=== PATIENT | female | born 1965 | race Caucasian/White ===

== ENCOUNTER 2017-08-09 16:43 | Emergency (ER) | payer MEDICARE, OTHER ==
[2017-08-09] MEDS ORDERED: RX INFO: IV CONTRAST WAS GIVEN 1 EACH MISC MISCELLANE PRN (17:08)
[2017-08-09] MEDS ORDERED: HYDROcodone/APAP 5-325MG 1 EACH TAB PO STA (17:09)
--- NOTE | 2017-08-09 17:15 | ED ---
Neck Injury/Pain HPI - General Chief Complaint: Neck Pain/Injury Stated Complaint: Neck Swelling Time Seen by Provider: 08/09/17 17:01 Mode of arrival: wheelchair Limitations: no limitations - History of Present Illness Initial Comments: 52-year-old female patient presents to the emergency department today for complaints of neck pain and issues with the right ear. Patient states that she has been having issues with the right side of her neck on and off for the last one was. She states that she has been having pain in the right ear. She did see an research program internship who states that he doesn't believe her pain is related to the ear. Patient states that the neck is tender over the right posterior aspect. Patient is also complaining of swollen glands. She denies any fevers or chills with this. Denies any dizziness or weakness. 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 She states that she was having issues with hearing in the right side. States the research program internship out of there was some fluid on the ear. Patient denies any recent rash, shortness breath, chest pain, abdominal pain, nausea, vomiting, diarrhea, constipation, dizziness, weakness, hematuria, dysuria, urinary urgency, urinary frequency, headache, visual changes, or any other complaints. - Related Data Home Medications Medication Instructions Recorded Confirmed Gabapentin [Neurontin] 800 mg PO TID 08/03/15 08/09/17 Insulin Glargine [Lantus] 50 unit SQ HS 08/03/15 08/09/17 Liraglutide [Victoza 2-Rk] 1.2 mg SQ DAILY 11/23/15 08/09/17 Albuterol Inhaler [Ventolin Hfa 1 - 2 puff INHALATION RT-Q6H PRN 03/24/17 Inhaler] Albuterol Nebulized [Ventolin 2.5 mg INHALATION RT-Q6H PRN 03/24/17 08/09/17 Nebulized] Aspirin 81 mg PO DAILY 03/24/17 08/09/17 Citalopram Hydrobromide [CeleXA] 40 mg PO DAILY 03/24/17 08/09/17 Ipratropium/Albuterol Sulfate 1 puff INHALATION RT-QID 03/24/17 08/09/17 [Combivent Respimat Inhaler] Lisinopril [Zestril] 20 mg PO BID 03/24/17 08/09/17 Acetaminophen Tab [Tylenol Tab] 1,000 mg PO Q6HR PRN 08/09/17 08/09/17 HYDROcodone/APAP 5-325MG [[place] 1 tab PO Q6HR PRN 08/09/17 08/09/17 5-325] Insulin Lispro [humaLOG Kwikpen] 15 unit SQ AC-TID 08/09/17 08/09/17 metFORMIN HCL 1,000 mg PO BID 08/09/17 08/09/17 Previous Rx's Medication Instructions Recorded Atorvastatin [Lipitor] 80 mg PO HS #30 tab 04/01/17 Isosorbide Mononitrate ER [Imdur] 60 mg PO DAILY #30 tab.er.24h 04/01/17 Metoprolol Tartrate [Lopressor] 25 mg PO BID #60 tab 04/01/17 Nitroglycerin Sl Tabs [Nitrostat] 0.4 mg SUBLINGUAL Q5M PRN #25 tab 04/01/17 Hydrocodone/Acetaminophen [[place] 1 tab PO Q6HR PRN #12 tab 08/09/17 5-325] Allergies Allergy/AdvReac Type Severity Reaction Status Date / Time Melon Allergy Anaphylaxis Verified 08/09/17 17:52 morphine Allergy Rash/Hives Verified 08/09/17 17:52 Penicillins Allergy Dyspnea Verified 08/09/17 17:52 acetaminophen [From Tylenol] AdvReac Dyspnea Verified 08/09/17 17:52 alprazolam [From Xanax] AdvReac Unknown Verified 08/09/17 17:52 codeine AdvReac Dyspnea Verified 08/09/17 17:52 Review of Systems ROS Statement: Those systems with pertinent positive or pertinent negative responses have been documented in the HPI. ROS Other: All systems not noted in ROS Statement are negative. Past Medical History Past Medical History: Asthma, Coronary Artery Disease (CAD), Chest Pain / Angina , COPD, Diabetes Mellitus, Fibromyalgia, Hypertension, Myocardial Infarction ([place] ), Sleep Apnea/CPAP/BIPAP Additional Past Medical History / Comment(s): MS, neuropathy, arthritis in back , knees, ankles, feet. VERTIGO. fibromyalgia, sleep apnea with cpap use, abd aneurysm Last Myocardial Infarction Date:: 2004 History of Any Multi-Drug Resistant Organisms: None Reported Past Surgical History: Appendectomy, Cholecystectomy, Hysterectomy, Pacemaker, Tonsillectomy Additional Past Surgical History / Comment(s): Bladder SUSPENSION. LEFT carpal tunnel. Cyst removed from left middle finger Past Anesthesia/Blood Transfusion Reactions: Previous Problems w/ Anesthesia, Motion Sickness Additional Past Anesthesia/Blood Transfusion Reaction / Comment(s): HAS BEEN COMBATIVE POST GENERAL ANESTHESIA Past Psychological History: Depression Smoking Status: Current every day smoker Past Alcohol Use History: Occasional Past Drug Use History: Marijuana - Past Family History Mother Family Medical History: Diabetes Mellitus Additional Family Medical History / Comment(s): heart problems Father Family Medical History: Diabetes Mellitus Additional Family Medical History / Comment(s): heart problems General Exam Limitations: no limitations General appearance: alert, in no apparent distress, other (This is a well- developed, obese female patient in no acute distress. Vital signs upon presentation are temperature 98.1 degrees, pulse 54, respirations 20, blood pressure 158/97, pulse ox 98% on room air.) Eye exam: Present: normal appearance, PERRL, EOMI. Absent: scleral icterus, conjunctival injection, periorbital swelling ENT exam: Present: normal exam, normal oropharynx, mucous membranes moist Neck exam: Present: normal inspection, full ROM, lymphadenopathy (Mild bilateral anterior cervical lymphadenopathy), other (Right posterior cervical tenderness). Absent: tenderness, meningismus Respiratory exam: Present: normal lung sounds bilaterally. Absent: respiratory distress, wheezes, rales, rhonchi, stridor Cardiovascular Exam: Present: regular rate, normal rhythm, normal heart sounds. Absent: systolic murmur, diastolic murmur, rubs, gallop, clicks Neurological exam: Present: alert, oriented X3, CN II-XII intact Psychiatric exam: Present: normal affect, normal mood Skin exam: Present: warm, dry, intact, normal color. Absent: rash Course Vital Signs 08/09/17 08/09/17 08/09/17 16:52 18:41 19:12 Temperature 98.1 F 97.8 F Pulse Rate 54 L 92 52 L Respiratory 20 18 18 Rate Blood Pressure 158/97 188/97 191/94 O2 Sat by Pulse 98 99 96 Oximetry 08/09/17 20:08 Temperature 97.8 F Pulse Rate 52 L Respiratory 20 Rate Blood Pressure 199/103 O2 Sat by Pulse 96 Oximetry Medical Decision Making - Medical Decision Making 52-year-old female patient presents to the emergency department today for evaluation of right posterior neck pain. Physical exam reveals tenderness over the right posterior cervical lymph node region. Patient is also reporting tenderness over the submental mandibular area. No swelling or discoloration noted. Labs reviewed and were unremarkable. Patient did undergo CT of the soft tissues of the neck with contrast and CT of the mastoid air cells. CT of the soft tissue of the neck was normal. CT of the mastoids did redemonstrate temporal bone findings. Did discuss this with the patient and instructed her to follow up with her primary care physician for further evaluation and possible MRI. She was given a short course of pain medication for the neck pain. She does have an appointment with a traffic line painter she is encouraged to keep this point. She is instructed to return here immediately for any new, worsening, or concerning symptoms. She verbalizes understanding and agrees this plan. - Lab Data Result diagrams: 08/09/17 17:22 08/09/17 17:22 Lab Results 08/09/17 08/09/17 Range/Units 17:22 17:22 WBC 8.0 (3.8-10.6) k/uL RBC 4.75 (3.80-5.40) m/uL Hgb 13.8 (11.4-16.0) gm/dL Hct 40.7 (34.0-46.0) % MCV 85.8 (80.0-100.0) fL MCH 29.1 (25.0-35.0) pg MCHC 33.9 (31.0-37.0) g/dL RDW 13.8 (11.5-15.5) % Plt Count 309 (150-450) k/uL Neutrophils % 53 % Lymphocytes % 36 % Monocytes % 5 % Eosinophils % 3 % Basophils % 1 % Neutrophils # 4.3 (1.3-7.7) k/uL Lymphocytes # 2.9 (1.0-4.8) k/uL Monocytes # 0.4 (0-1.0) k/uL Eosinophils # 0.2 (0-0.7) k/uL Basophils # 0.1 (0-0.2) k/uL Sodium 142 (137-145) mmol/L Potassium 3.5 (3.5-5.1) mmol/L Chloride 103 (98-107) mmol/L Carbon Dioxide 31 H (22-30) mmol/L Anion Gap 8 mmol/L BUN 13 (7-17) mg/dL Creatinine 0.64 (0.52-1.04) mg/dL Est GFR (CKD-EPI)AfAm >90 (>60 ml/min/1.73 sqM) Est GFR (CKD-EPI)NonAf >90 (>60 ml/min/1.73 sqM) Glucose 132 H (74-99) mg/dL Calcium 9.1 (8.4-10.2) mg/dL Total Bilirubin 0.6 (0.2-1.3) mg/dL AST 27 (14-36) U/L ALT 35 (9-52) U/L Alkaline Phosphatase 104 (38-126) U/L Total Protein 6.8 (6.3-8.2) g/dL Albumin 3.9 (3.5-5.0) g/dL - Radiology Data Radiology results: report reviewed, image reviewed CT of the mastoids without contrast shows previous is seen right temporal bone changes involving the right mastoid sinus air cells, right middle ear cavity and right tegmen tympania redemonstrated, appearing relatively similar to the prior study of March 2017. An intracranial component is not visualized by CT criteria, but further characterization with dedicated temporal bone MRI without and with contrast is advised to examine for subtle intracranial dural involvement. The remainder the visualized structures are unremarkable for acute findings. Impression by Dr. Haider Montoya shows right-sided temporal bone findings. CT of the neck is performed with IV contrast. Findings show airway and lung apices: No gross abnormalities seen. Salivary glands are no gross abnormality. Carotid vascular structures show diffuse arterial atherosclerotic tortuosity with scattered intimal calcifications. Venous structures patent. Osseous structures show no spinal malalignment or fracture or other focal skeletal finding. Multilevel mild plus cervical spondylosis changes noted. Other shows no mass or adenopathy. Visual upper chest is unremarkable. Impression shows no acute process, by Dr. Haider Montoya. Disposition Clinical Impression: Neck pain Disposition: HOME SELF-CARE Condition: Good Instructions: Neck Pain (ED) Additional Instructions: Take medications as directed. Follow-up with her primary care physician for recheck in 1-2 days. Keep her appointment with her traffic line painter as you have planned. Return here immediately for any new, worsening, or concerning symptoms. Prescriptions: Hydrocodone/Acetaminophen [Barnhill 5-325] 1 tab PO Q6HR PRN #12 tab PRN Reason: Pain Referrals: Nonstaff,Physician [Primary Care Provider] - 1-2 days Time of Disposition: 20:11
[2017-08-09 17:35] LABS: Basophils # (A) 0.1 k/uL (0-0.2); Basophils % (A) 1 %; Eosinophils # (A) 0.2 k/uL (0-0.7); Eosinophils % (A) 3 %; HCT 40.7 % (34.0-46.0); HGB 13.8 gm/dL (11.4-16.0); Lymphocytes # (A) 2.9 k/uL (1.0-4.8); Lymphocytes % (A) 36 %; MCH 29.1 pg (25.0-35.0); MCHC 33.9 g/dL (31.0-37.0); MCV 85.8 fL (80.0-100.0); Mean Platelet Volume 6.8; Monocytes # (A) 0.4 k/uL (0-1.0); Monocytes % (A) 5 %; Neutrophils # (A) 4.3 k/uL (1.3-7.7); Neutrophils % (A) 53 %; Platelet Count 309 k/uL (150-450); RBC 4.75 m/uL (3.80-5.40); RDW 13.8 % (11.5-15.5)
[2017-08-09 17:47] LABS: ALT 35 U/L (9-52); AST 27 U/L (14-36); Albumin 3.9 g/dL (3.5-5.0); Alkaline Phosphatase 104 U/L (38-126); Anion Gap 8 mmol/L; Blood Urea Nitrogen 13 mg/dL (7-17); Calcium 9.1 mg/dL (8.4-10.2); Carbon Dioxide 31 mmol/L (22-30); Chloride 103 mmol/L (98-107); Glucose 132 mg/dL (74-99); Potassium 3.5 mmol/L (3.5-5.1); Sodium 142 mmol/L (137-145); Total Bilirubin 0.6 mg/dL (0.2-1.3); Total Protein 6.8 g/dL (6.3-8.2)
[2017-08-09 19:16] VITALS: PULSE 52
--- NOTE | 2017-08-09 19:40 | CT ---
EXAMINATION TYPE: CT mastoid wo con DATE OF EXAM: 08/09/2017 COMPARISON: 03/27/2017 HISTORY: Posterior neck pain and swelling without injury CT DLP: 150 mGycm. Automated Exposure Control for Dose Reduction was Utilized. TECHNIQUE: CT scan of internal auditory canal is performed without contrast, thin cut axial images ar e obtained, coronal reformatted images are also reviewed. FINDINGS: The previously seen right temporal bone changes involving the right mastoid sinus air cells , right middle ear cavity and right tegmen tympani are redemonstrated, appearing relatively similar t o the prior study of March 2017. An intracranial component is not visualized by CT criteria, but f urther characterization with dedicated temporal bone MRI without and with contrast is advised to exam ine for subtle intracranial / dural involvement. The remainder of the visualized structures are unrem arkable for acute findings. IMPRESSION: RIGHT-SIDED TEMPORAL BONE FINDINGS.
--- NOTE | 2017-08-09 19:46 | CT ---
EXAMINATION TYPE: CT soft tissue neck w con DATE OF EXAM: 08/09/2017 7:11 PM COMPARISON: NONE HISTORY: Posterior neck pain and swelling without injury CT DLP: 1030.9 mGycm Automated exposure control for dose reduction was used. CONTRAST: CT scan of the neck is performed following with IV Contrast, patient injected with 100 mL o f Omnipaque 300. Axial images are obtained, coronal and sagittal reformatted images are reviewed. FINDINGS: Airway and lung apices: No gross abnormality seen. Salivary glands: No gross abnormality seen. Carotid/Vascular Structures: There is diffuse arterial atherosclerotic tortuosity with scattered inti mal calcifications. Venous structures patent. Osseous Structures: No spinal malalignment or fracture or other focal skeletal finding. Multilevel mi ld-plus cervical spondylosis changes noted. Other: No mass or adenopathy. Visualized upper chest unremarkable. IMPRESSION: NO ACUTE PROCESS.
[2017-08-09] MEDS ORDERED: KETOROLAC 30 MG/ML 1 ML VIAL IVP STA (20:01)
[2017-08-09 21:01] VITALS: BP 151/95; RESP 18; TEMP 97.9
== END 2017-08-09 21:00 | disposition home or self-care (01) ==
LOC: EC 16:43
DX: M54.2 Cervicalgia (principal); R22.1 Localized swelling, mass and lump, neck; J44.9 Chronic obstructive pulmonary disease, unspecified; I25.10 Atherosclerotic heart disease of native coronary artery without angina pectoris; E11.40 Type 2 diabetes mellitus with diabetic neuropathy, unspecified; I10 Essential (primary) hypertension; I25.2 Old myocardial infarction; G47.30 Sleep apnea, unspecified; Z99.89 Dependence on other enabling machines and devices; F32.9 Major depressive disorder, single episode, unspecified; F17.200 Nicotine dependence, unspecified, uncomplicated; Z79.4 Long term (current) use of insulin; Z79.82 Long term (current) use of aspirin; Z79.899 Other long term (current) drug therapy; Z88.0 Allergy status to penicillin; Z88.5 Allergy status to narcotic agent; Z88.6 Allergy status to analgesic agent; Z88.8 Allergy status to other drugs, medicaments and biological substances; Z91.018 Allergy to other foods
CPT/HCPCS: 36415; 80053; 85025; 70486; 70491; 99284; 96374; J1885; Q9967

== ENCOUNTER → 2017-10-24 | Outpatient (CLI) | payer MEDICARE ==
[2017-10-24 16:11] LABS: Blood Urea Nitrogen 13 mg/dL (7-17)
--- NOTE | 2017-10-25 08:13 | CT ---
EXAMINATION TYPE: CT chest w con DATE OF EXAM: 10/24/2017 COMPARISON: CT chest [facility] 03/24/2017 HISTORY: Pulmonary nodule CT DLP: 1339.7 mGycm, Automated exposure control for dose reduction was used. CONTRAST: Performed injected with 100 mL of Isovue 300. TECHNIQUE: Axial images were obtained at 5 mm thick sections. Reconstructed images are reviewed on [employer] computer in the coronal plane. FINDINGS: Portion of the thyroid visualized is normal. There is a new 0.5 cm nodular density at the periphery of the left apex. Series 4 image 17 There is an irregular density within the anterior right midlung measuring 1.2 cm. Series 4 image 33. This may be more prominent than the comparison. There is a 1.1 cm lymph node in the pretracheal space. Some additional smaller lymph nodes are prese nt. This is slightly more prominent than comparison. The ascending aorta diameter at the level of the main pulmonary artery is 4.2 cm. The main pulmonary artery diameter at the bifurcation is 4.5 cm. Correlate for pulmonary hypertension. Some mild cardio megaly may be present. No pericardial effusion is evident. Limited CT sections are obtained through the upper abdomen. Left adrenal gland is enlarged measuring 5.8 x 4.2 cm. This appears essentially stable. IMPRESSIONS: 1. Couple of lung nodules slightly prominent for developing from comparison. Mediastinal adenopathy e nlarged but stable left adrenal gland. Consider PET CT for additional workup. Static disease is not e xcluded.
== END | disposition home or self-care (01) ==
LOC: RADCTMAIN 15:27
PROVIDERS: ATTEND Internal Medicine
DX: R91.8 Other nonspecific abnormal finding of lung field (principal); R59.0 Localized enlarged lymph nodes
CPT/HCPCS: 82565; 84520; 71260; 36415; Q9967

== ENCOUNTER 2022-10-31 15:56 | Inpatient (IN) | payer MEDICARE ==
[2022-10-31] MEDS ORDERED: SODIUM CHLORIDE 0.9% 500 ML 500 ML IV STA (16:02)
[2022-10-31] MEDS ORDERED: SODIUM CHLORIDE 0.9% 1,000 ML IV STA (16:02)
--- NOTE | 2022-10-31 16:04 | ED ---
Weakness HPI - General Stated complaint: Weakness Time Seen by Provider: 10/31/22 16:01 Source: RN notes reviewed, old records reviewed Limitations: no limitations - History of Present Illness Initial comments: 57-year-old female to the ER for evaluation today. Patient presents today for evaluation regards to transfer, transfer for having TIA type symptoms altered mental status. Patient is accepted in transfer. She also had multiple near syncopal events. Facial droop. All symptoms are resolved currently MD Complaint: generalized weakness, focal weakness, lack of energy -: hour(s) Location: generalized Severity: moderate Severity scale (1-10): 7 Quality: tingling Consistency: constant Improves with: none Worsens with: none Context: recent illness, history of similar Associated Symptoms: denies other symptoms - Related Data Home Medications Medication Instructions Recorded Confirmed Albuterol Inhaler [Ventolin Hfa 1 - 2 puff INHALATION RT-Q6H PRN 03/24/17 10/31/22 Inhaler] Baclofen [Lioresal] 10 mg PO BID PRN 10/31/22 10/31/22 DULoxetine HCL [Cymbalta] 30 mg PO DAILY 10/31/22 10/31/22 Dapagliflozin Propanediol [Farxiga] 5 mg PO DAILY 10/31/22 10/31/22 Dulaglutide [Trulicity] 1.5 mg SQ TH 10/31/22 10/31/22 Estradiol Cream [Estrace Cream 1 gm VAGINAL DIRECTED 10/31/22 10/31/22 0.01%] Furosemide [Lasix] 40 mg PO DAILY 10/31/22 10/31/22 busPIRone HCL [Buspar] 7.5 mg PO BID 10/31/22 10/31/22 lisinopriL 40 mg PO DAILY 10/31/22 10/31/22 Allergies Allergy/AdvReac Type Severity Reaction Status Date / Time acetaminophen [From Tylenol] Allergy Dyspnea Verified 10/31/22 17:26 codeine Allergy Dyspnea Verified 10/31/22 17:26 Melon Allergy Anaphylaxis Verified 08/09/17 17:52 morphine Allergy Rash/Hives Verified 08/09/17 17:52 Penicillins Allergy Dyspnea Verified 10/31/22 17:26 alprazolam [From Xanax] AdvReac See comment Verified 10/31/22 17:26 Review of Systems ROS Statement: Those systems with pertinent positive or pertinent negative responses have been documented in the HPI. ROS Other: All systems not noted in ROS Statement are negative. Past Medical History Past Medical History: Asthma, Coronary Artery Disease (CAD), Chest Pain / Angina, COPD, Diabetes Mellitus, Fibromyalgia, Hypertension, Myocardial Infarction ([place]), Sleep Apnea/CPAP/BIPAP Additional Past Medical History / Comment(s): MS, neuropathy, arthritis in back, knees, ankles, feet. VERTIGO. fibromyalgia, sleep apnea with cpap use, abd aneurysm Last Myocardial Infarction Date:: 2004 History of Any Multi-Drug Resistant Organisms: None Reported Past Surgical History: Appendectomy, Cholecystectomy, Hysterectomy, Pacemaker, Tonsillectomy Additional Past Surgical History / Comment(s): Bladder SUSPENSION. LEFT carpal tunnel. Cyst removed from left middle finger Past Anesthesia/Blood Transfusion Reactions: Previous Problems w/ Anesthesia, Motion Sickness Additional Past Anesthesia/Blood Transfusion Reaction / Comment(s): HAS BEEN COMBATIVE POST GENERAL ANESTHESIA Past Psychological History: Depression Past Alcohol Use History: Occasional Past Drug Use History: Marijuana - Past Family History Mother Family Medical History: Diabetes Mellitus Additional Family Medical History / Comment(s): heart problems Father Family Medical History: Diabetes Mellitus Additional Family Medical History / Comment(s): heart problems General Exam - General Exam Comments Initial Comments: No current focal neurological deficits General appearance: alert, in no apparent distress Head exam: Present: atraumatic, normocephalic, normal inspection Eye exam: Present: normal appearance, PERRL, EOMI. Absent: scleral icterus, conjunctival injection, periorbital swelling ENT exam: Present: normal exam, mucous membranes moist Neck exam: Present: normal inspection. Absent: tenderness, meningismus, lymphadenopathy Respiratory exam: Present: normal lung sounds bilaterally. Absent: respiratory distress, wheezes, rales, rhonchi, stridor Cardiovascular Exam: Present: regular rate, normal rhythm, normal heart sounds. Absent: systolic murmur, diastolic murmur, rubs, gallop, clicks GI/Abdominal exam: Present: soft, normal bowel sounds. Absent: distended, tenderness, guarding, rebound, rigid Extremities exam: Present: normal inspection, full ROM, normal capillary refill. Absent: tenderness, pedal edema, joint swelling, calf tenderness Back exam: Present: normal inspection Neurological exam: Present: alert, oriented X3, CN II-XII intact Psychiatric exam: Present: normal affect, normal mood Skin exam: Present: warm, dry, intact, normal color. Absent: rash Course Vital Signs 10/31/22 10/31/22 10/31/22 16:09 19:48 20:57 Temperature 98 F Pulse Rate 51 L 54 L 52 L Respiratory 18 18 18 Rate Blood Pressure 183/86 168/76 160/68 O2 Sat by Pulse 99 98 96 Oximetry - Reevaluation(s) Reevaluation #1: 10/31/22 23:31 Medical records reviewed. Reevaluation #2: 10/31/22 23:32 Patient has focalneurologicaldeficits Reevaluation #3: 10/31/22 23:33 Patient informed results questions answered Reevaluation #4: 10/31/22 23:33 Was pt. sent in by a medical professional or institution? @ -no Did you speak to anyone other than the patient for history? @ -no Did you review nursing and triage notes? @ -agree Were old charts reviewed? @ -no Differential Diagnosis? @ -prior EKG interpreted by me (3pts min.)? @ -yes X-rays interpreted by me (1pt min.)? @ -yes CT interpreted by me (1pt min.)? @ -no U/S interpreted by me (1pt. min.)? @ -no What testing was considered but not performed? (CT, X-rays, U/S, labs)? Why? @ -no What meds were considered but not given? Why? @ -no Did you discuss the management of the patient with other professionals? @ -no Did you reconcile home meds? @ -no Was smoking cessation discussed for >3mins.? @ -no Was critical care preformed (if so, how long)? @ -no Were there social determinants of health that impacted care today? How? (Homelessness, low income, unemployed, alcoholism, drug addiction, transportati on, low edu. Level, literacy, decrease access to med. care, detention, rehab)? @ -no Was there de-escalation of care discussed even if they declined? (Discuss DNR or withdrawal of care, Hospice)? @ -no What co-morbidities impacted this encounter? (DM, HTN, Smoking, COPD, CAD, Cancer, CVA, Hep., AIDS, mental health diagnosis, sleep apnea, morbid obesity)? @ -none Was patient admitted / discharged? @ - Undiagnosed new problem with uncertain prognosis? @ -no Drug Therapy requiring intensive monitoring for toxicity (Heparin, Nitro, Insulin, Cardizem)? @ -no Were any procedures done? @ -no Diagnosis/symptom? @ - Acute, or Chronic, or Acute on Chronic? @ -no Uncomplicated (without systemic symptoms) or Complicated (systemic symptoms)? @ -uncomplicated Side effects of treatment? @ -no Exacerbation, Progression, or Severe Exacerbation] @ -no Poses a threat to life or bodily function? @ -yes Reevaluation #5: 10/31/22 23:33 Differential Altered Mental Status: Hypoglycemia, DKA, hypercapnia, ETOH, overdose, CO poisoning, trauma, myxedema coma, HTN encephalopathy, infection, encephalitis, psychosis, intercranial hemorrhage, hepatic encephalopathy, meningitis, CVA, this is not meant to be an all-inclusive list Medical Decision Making - Medical Decision Making 49 female here for evaluation TIA versus other cause of near syncope weakness. Patient will be admitted for neurology to evaluate treat. Patient is also found to have incidental adrenal tumor. Patient self currently is without complaint - Lab Data Result diagrams: 10/31/22 18:15 10/31/22 18:15 Disposition Clinical Impression: Near syncope, Weakness, UTI (urinary tract infection), AMS (altered mental status), Dehydration, Adrenal tumor Disposition: ADMITTED IP TO THIS HOSP Condition: Good Is patient prescribed a controlled substance at d/c from ED?: No Time of Disposition: 17:45
[2022-10-31] MEDS ORDERED: NALOXONE 0.4 MG/ML 1 ML VIAL IV PRN (17:39)
[2022-10-31] MEDS ORDERED: ACETAMINOPHEN TAB 325 MG TAB PO STA (17:44)
[2022-10-31] MEDS: SODIUM CHLORIDE 0.9% 1,000 ML IV SCH (17:53)
[2022-10-31 18:58] LABS: Basophils % (A) 0 %; Eosinophils # (A) 0.1 k/uL (0-0.7); Eosinophils % (A) 1 %; HCT 39.9 % (34.0-46.0); HGB 12.7 gm/dL (11.4-16.0); Lymphocytes # (A) 2.2 k/uL (1.0-4.8); Lymphocytes % (A) 19 %; MCH 26.6 pg (25.0-35.0); MCHC 31.8 g/dL (31.0-37.0); MCV 83.7 fL (80.0-100.0); Mean Platelet Volume 7.9; Monocytes # (A) 0.7 k/uL (0-1.0); Monocytes % (A) 6 %; Neutrophils # (A) 8.5 k/uL (1.3-7.7); Neutrophils % (A) 73 %; Platelet Count 285 k/uL (150-450); RBC 4.77 m/uL (3.80-5.40); RDW 14.7 % (11.5-15.5); WBC 11.7 k/uL (3.8-10.6)
[2022-10-31 19:08] LABS: Partial Thromboplastin Time 23.3 sec (22.0-30.0); Prothrombin Time 10.4 sec (9.0-12.0)
[2022-10-31 19:18] LABS: ALT 13 U/L (4-34); AST 21 U/L (14-36); African American GFR (CKD) >90 (>60 ml/min/1.73 sqM); Albumin 3.8 g/dL (3.5-5.0); Alkaline Phosphatase 127 U/L (38-126); Anion Gap 6 mmol/L; Blood Urea Nitrogen 14 mg/dL (7-17); Calcium 8.9 mg/dL (8.4-10.2); Carbon Dioxide 27 mmol/L (22-30); Chloride 104 mmol/L (98-107); Glucose 102 mg/dL (74-99); Non-African American GFR(CKD) 88 (>60 ml/min/1.73 sqM); Phosphorus 3.6 mg/dL (2.5-4.5); Potassium 3.9 mmol/L (3.5-5.1); Sodium 137 mmol/L (137-145); Total Bilirubin 1.2 mg/dL (0.2-1.3); Total Protein 6.7 g/dL (6.3-8.2)
[2022-10-31 20:49] LABS: Appearance,Urine Cloudy (Clear); Bacteria,Urine Rare /hpf; Bilirubin,Urine Negative (Negative); Blood,Urine Negative (Negative); Color,Urine Yellow; Glucose,Urine (UA) 3+ (Negative); Ketones,Urine Trace (Negative); Leukocyte Esterase,Urine Trace (Negative); Mucus,Urine Many /hpf; Nitrite,Urine Negative (Negative); Protein,Urine 2+ (Negative); RBC,Urine 2 /hpf (0-5); Specific Gravity,Urine 1.026 (1.001-1.035); Squamous Epithelial Cell,Urine 19 /hpf (0-4); WBC,Urine 4 /hpf (0-5)
[2022-11-01] MEDS: HYDROmorphone 1 MG/ML 1 ML SYRINGE IVP PRN ×3 (00:15→21:39)
[2022-11-01] MEDS: ONDANSETRON 4 MG/2 ML VIAL IVP PRN ×2 (00:43→09:36)
[2022-11-01] MEDS: SODIUM CHLORIDE 0.9% 1,000 ML IV SCH ×3 (00:46→14:04)
[2022-11-01 07:12] LABS: Glucose,Whole Blood 98 mg/dL (70-110)
[2022-11-01 08:35] LABS: Basophils # (A) 0.1 k/uL (0-0.2); Basophils % (A) 1 %; Eosinophils # (A) 0.1 k/uL (0-0.7); Eosinophils % (A) 1 %; HCT 40.6 % (34.0-46.0); HGB 12.3 gm/dL (11.4-16.0); Hypochromasia Marked; Lymphocytes # (A) 1.8 k/uL (1.0-4.8); Lymphocytes % (A) 25 %; MCH 26.5 pg (25.0-35.0); MCHC 30.2 g/dL (31.0-37.0); MCV 87.5 fL (80.0-100.0); Mean Platelet Volume 7.9; Monocytes # (A) 0.5 k/uL (0-1.0); Monocytes % (A) 7 %; Neutrophils # (A) 4.9 k/uL (1.3-7.7); Neutrophils % (A) 65 %; Platelet Count 267 k/uL (150-450); RBC 4.63 m/uL (3.80-5.40); RDW 14.6 % (11.5-15.5); WBC 7.5 k/uL (3.8-10.6)
[2022-11-01 08:57] LABS: ALT 13 U/L (4-34); AST 21 U/L (14-36); African American GFR (CKD) >90 (>60 ml/min/1.73 sqM); Albumin 3.5 g/dL (3.5-5.0); Albumin/Globulin Ratio 1.3; Alkaline Phosphatase 108 U/L (38-126); Anion Gap 7 mmol/L; Blood Urea Nitrogen 15 mg/dL (7-17); Calcium 8.5 mg/dL (8.4-10.2); Carbon Dioxide 28 mmol/L (22-30); Chloride 104 mmol/L (98-107); Globulin 2.8 g/dL; Glucose 100 mg/dL (74-99); Non-African American GFR(CKD) >90 (>60 ml/min/1.73 sqM); Sodium 139 mmol/L (137-145); Total Bilirubin 0.8 mg/dL (0.2-1.3); Total Protein 6.3 g/dL (6.3-8.2)
--- NOTE | 2022-11-01 10:35 | HP ---
HISTORY AND PHYSICAL CHIEF COMPLAINT: Change in mental status and UTI. HISTORY OF PRESENT ILLNESS: This 57-year-old woman presented with a history of multiple medical problems, admitted with some change in mental status. The patient was suspected to have UTI/TIA. The patient will be closely monitored. There is no history of any fever, rigors, or chills at this time. PAST MEDICAL HISTORY: Reviewed, include asthma, CAD, COPD. Rest of the history and rest of the chart are also reviewed. HOME MEDICATIONS: Reviewed, include lisinopril. Doses and rest of the medications reviewed. ALLERGIES: Reviewed, include codeine. Rest of the allergies reviewed. FAMILY HISTORY: History of diabetes mellitus and CHF. SOCIAL HISTORY: History of smoking. REVIEW OF SYSTEMS: A 14-point review of systems is negative except as mentioned earlier. PHYSICAL EXAMINATION: VITAL SIGNS: Pulse 52, blood pressure 115/70, respiratory rate 16. HEENT: Conjunctivae normal. NECK: No jugular venous distention. CARDIOVASCULAR: S1, S2. RESPIRATORY: Diminished breath sounds at the bases. ABDOMEN: Soft, nontender. LEGS: No edema. No cyanosis. NERVOUS SYSTEM: Nonfocal. LABORATORY DATA: Reviewed. ASSESSMENT: 1. Change in mental status, possible urinary tract infection. 2. Rule out transient ischemic attack. 3. Chronic obstructive pulmonary disease. 4. Diabetes mellitus type 2. 6. Hypertension. 7. Multiple medical issues. RECOMMENDATIONS AND DISCUSSION: In this 57-year-old woman who presented with multiple complex medical issues, we will monitor the patient closely. We will continue with current medications. We will obtain cultures. Also, Infectious Disease evaluation, Neurology evaluation. Complete neurovascular workup. We will resume the home medications once they are confirmed. Prognosis guarded. Discussed with the patient and family at length. Further recommendations to follow. MMODL / IJN: [id number] / MTDD
[2022-11-01] MEDS ORDERED: ALBUTEROL NEBULIZED 2.5 MG/3 ML INHALATION PRN (10:41)
--- NOTE | 2022-11-01 10:43 | CT ---
EXAMINATION TYPE: CT brain wo con CT DLP: 1047.1 mGycm, Automated exposure control for dose reduction was used. DATE OF EXAM: 11/01/2022 10:31 AM COMPARISON: Prior CT Brain from 03/25/2017, 10/31/2022. CLINICAL INDICATION:Female, 57 years old with history of confusion, confusion, hx of MS TECHNIQUE: Brain: Multiple axial CT images of the brain were obtained without IV contrast. Coronal and sagittal reformats reviewed. FINDINGS: Brain: Extra-axial spaces: No abnormal extra-axial fluid collections. Ventricular system: Within normal limits Cerebral parenchyma: Cerebral atrophy. No acute intraparenchymal hemorrhage or mass effect. The clay -white junction is well differentiated. Scattered stable hypoattenuating areas are seen within the wh ite matter. Cerebellum: Unremarkable. Mass effect: No evidence of midline shift. Intracranial vasculature: Atherosclerotic calcifications of the intracranial vessels. Soft tissues: Normal. Calvarium/osseous structures: No depressed skull fracture. Paranasal sinuses and mastoid air cells: Similar chronic opacification of the right mastoid air cells . Visualized orbits: Orbital contents are intact. IMPRESSION: 1. No acute intracranial process. No significant change from prior examination. 2. Nonspecific periventricular white matter changes which may represent known MS versus chronic smal l vessel ischemic disease. 3. Similar findings of chronic right mastoiditis.
[2022-11-01] MEDS ORDERED: NON FORMULARY DRUG (Dulaglutide [Trulicity] 1.5 MG/0.5 ML Each) SQ SCH (10:45)
[2022-11-01] MEDS ORDERED: ESTRADIOL 0.1 MG/GM VAGINAL CREAM 42.5 GM TUBE VAGINAL SCH (10:45)
[2022-11-01 11:18] LABS: Glucose,Whole Blood 129 mg/dL (70-110)
[2022-11-01] MEDS: lisinopriL 20 MG TAB PO SCH (11:57)
[2022-11-01] MEDS: BACLOFEN 10 MG TAB PO PRN ×2 (11:58→21:38)
[2022-11-01] MEDS: DAPAGLIFLOZIN PROPANEDIOL 5 MG TABLET PO SCH (11:58)
[2022-11-01] MEDS: GABAPENTIN 400 MG CAP PO SCH ×3 (11:58→21:38)
[2022-11-01] MEDS: busPIRone HCl 5 MG TAB PO SCH ×2 (11:58→21:38)
[2022-11-01] MEDS: DULoxetine HCL 30 MG CAPSULE.DR PO SCH (11:59)
[2022-11-01] MEDS: IOPAMIDOL CONTRAST (ORAL USE) VIAL PO PRN ×2 (14:03→14:57)
[2022-11-01] MEDS ORDERED: MD COMMUNICATION TO PHARMACY 1 EACH MISC PO PRN (15:06)
--- NOTE | 2022-11-01 16:26 | P.CNNES ---
History of Present Illness Consult date: 11/01/22 Requesting physician: Eyal Acevedo Reason for Consult: altered mental status/TIA History of Present Illness: Patient is a 57-year-old right-handed female who has reported history of MS, diabetes, hypertension, recurrent UTI, chronic tobacco use, came to the hospital by ambulance yesterday at 3:56 PM for some confusion for 2-3 days. Patient's grandson, who is her caregiver was also present. For the last 2-3 days, patient has been confused as to who she is, where she is at, and she was not comprehending if she was reading something. Patient's family believe that this was her symptoms of UTI, therefore brought her to the hospital. There were no associated focal neurological symptoms otherwise. EMS flow sheet not available in the chart. Vital signs on arrival blood pressure 183/86, which came down to 168/76 and then 160/68, pulse rate 51, temperature 98.0. Blood test shows WBC 11.7, which is now normal 7.5. Hemoglobin, hematocrit and platelets, PT/PTT, CMP are normal. Troponin negative, TSH normal cortisone normal, UA shows trace leukocyte esterase. CT head revealed no acute intracranial processes, no significant change from prior examination. Nonspecific periventricular white matter changes which may represent known MS versus chronic small vessel ischemic disease. I personally reviewed CT head, agree with the findings above and mild atrophy. No acute process. Visualized paranasal sinuses are clear. External auditory canal revealed mild wax in the right EAC. Patient says that her first UTI occurred in 2012. 6 months later she had another one and the infection went to her blood and she forgot "bunch of stuff". Over these years she has about 30 episodes of UTI. She would see her primary physician for a possible UTI, would be normal, but when she goes to the hospital, the urine always shows infection. She has to constantly out of the bathroom. She denies any pain. Patient says that she used to weigh over 4 and 65 pounds. She lost weight by dieting and then subsequently with use of Trulicity. Patient states that the UTI "messes up with her brain". Patient says that she used to take Copaxone for her MS, but she has not seen a neurologist since her neurologist was put in [facility]. Patient says that she had history of TIA twice, about 3 years ago and then 1 of them 5-6 years ago which affected her memory but no focal deficits. She has poor vision from diabetic retinopathy, also has diabetic neuropathy. Patient states that her left leg is slightly weak since her last stroke. She says that she does fall a lot. Patient has smoked 1-1/2 pack per day for 49 years. Occasionally smokes marijuana when she is in a lot of pain. She quit drinking alcohol 30 years ago. Patient takes albuterol, Estrace 0.01% cream Cymbalta 30 mg, Trulicity 1.5 mg subcu every , lisinopril 40 mg, Lasix 40 mg, BuSpar 7.5 mg twice a day, baclofen and Farxiga. Patient is concerned because multiple family members had of cancer, including her brother and her sister both of them 7 months ago and 3 months ago respectively of lung cancer. One of her close cousin also has lung cancer and a sister diagnosed with breast cancer. She states her adrenal gland has a growth on it and she is concerned about it. I would defer to primary physician. Review of Systems Review of systems unremarkable, except as pertinent positives and negatives mentioned in HPI. Patient does have difficulty controlling urine. Patient has balance issues, falls. Some weakness left leg from previous CVA. Memory loss, Past Medical History Past Medical History: Asthma, Coronary Artery Disease (CAD), Chest Pain / Angina, COPD, Diabetes Mellitus, Fibromyalgia, Hypertension, Myocardial Infarction ([place]), Sleep Apnea/CPAP/BIPAP Additional Past Medical History / Comment(s): MS, neuropathy, arthritis in back, knees, ankles, feet. VERTIGO. fibromyalgia, sleep apnea with cpap use, abd aneurysm Last Myocardial Infarction Date:: 2004 History of Any Multi-Drug Resistant Organisms: None Reported Past Surgical History: Appendectomy, Cholecystectomy, Hysterectomy, Pacemaker, Tonsillectomy Additional Past Surgical History / Comment(s): Bladder SUSPENSION. LEFT carpal tunnel. Cyst removed from left middle finger Past Anesthesia/Blood Transfusion Reactions: Previous Problems w/ Anesthesia, Motion Sickness Additional Past Anesthesia/Blood Transfusion Reaction / Comment(s): HAS BEEN COMBATIVE POST GENERAL ANESTHESIA Type of Cardiac Device: Permanent Pacemaker Device Placement Date:: 2017 Past Psychological History: Depression Past Alcohol Use History: Occasional Past Drug Use History: Marijuana - Past Family History Mother Family Medical History: Diabetes Mellitus Additional Family Medical History / Comment(s): heart problems Father Family Medical History: Diabetes Mellitus Additional Family Medical History / Comment(s): heart problems Medications and Allergies Home Medications Medication Instructions Recorded Confirmed Type Albuterol Inhaler [Ventolin Hfa 1 - 2 puff INHALATION RT-Q6H PRN 03/24/17 10/31/22 History Inhaler] Baclofen [Lioresal] 10 mg PO BID PRN 10/31/22 10/31/22 History DULoxetine HCL [Cymbalta] 30 mg PO DAILY 10/31/22 10/31/22 History Dapagliflozin Propanediol [Farxiga] 5 mg PO DAILY 10/31/22 10/31/22 History Dulaglutide [Trulicity] 1.5 mg SQ TH 10/31/22 10/31/22 History Estradiol Cream [Estrace Cream 1 gm VAGINAL DIRECTED 10/31/22 10/31/22 History 0.01%] Furosemide [Lasix] 40 mg PO DAILY 10/31/22 10/31/22 History busPIRone HCL [Buspar] 7.5 mg PO BID 10/31/22 10/31/22 History lisinopriL 40 mg PO DAILY 10/31/22 10/31/22 History Allergies Allergy/AdvReac Type Severity Reaction Status Date / Time acetaminophen [From Tylenol] Allergy Dyspnea Verified 10/31/22 17:26 codeine Allergy Dyspnea Verified 10/31/22 17:26 Melon Allergy Anaphylaxis Verified 08/09/17 17:52 morphine Allergy Rash/Hives Verified 08/09/17 17:52 Penicillins Allergy Dyspnea Verified 10/31/22 17:26 alprazolam [From Xanax] AdvReac See comment Verified 10/31/22 17:26 Physical Examination - Vital Signs Vital Signs: Vital Signs Temp Pulse Pulse Resp BP BP Pulse Ox 11/01/22 11:15 97.7 F 48 L 18 178/75 95 11/01/22 07:10 98.4 F 50 L 18 170/76 97 11/01/22 02:29 97.3 F L 52 L 16 154/79 99 10/31/22 21:27 20 10/31/22 21:20 97.5 F L 52 L 20 148/74 97 10/31/22 20:57 52 L 18 160/68 96 10/31/22 19:48 54 L 18 168/76 98 10/31/22 16:09 98 F 51 L 18 183/86 99 Intake and Output 10/31/22 11/01/22 11/01/22 22:59 06:59 14:59 Intake Total 240 400 Balance 240 400 Intake: Oral 240 400 Other: Voiding Method Diaper # Voids 2 2 Weight 145.15 kg Patient is a middle aged female, in no acute distress. Patient is alert awake oriented to time place and person. Patient knows it is 11/01/2022 and that she is in [facility] in [facility] in [facility]. She knows name of the current president. Speech and language functions are normal. Patient can name and repeat very well. No aphasia or dysarthria. Attention, concentration and fund of knowledge is adequate. On cranial nerve examination, pupils are equal, round and reacting to light, visual segal are full on confrontation, with no neglect on double simultaneous stimulation. Extraocular muscles are intact with no nystagmus. Face is symmetric, tongue protrudes to the midline. Palatal elevation and sensation normal, hearing and shoulder shrug normal, facial sensation normal. On muscle strength testing, there is no pronator drift and the strength is normal in arms and legs distally and proximally, except left deltoid 5-and right hip flexion 5-. Ankle dorsiflexion normal bilaterally. Deep tendon reflexes are very hypoactive and plantars are flat bilaterally. Sensory to touch is equal with no neglect on double simultaneous stimulation. Cerebellar function showed no ataxia for [id number] testing. No dysdi adochokinesia. Tone and bulk of muscles normal. Gait deferred.. On general examination, there is no carotid bruit or murmur, S1-S2 audible. Chest is clear on consultation. Abdomen is soft nontender. No organomegaly, bowel sounds present. Peripheral pulses are present. No edema. Results - Laboratory Findings CBC and BMP: 11/01/22 07:54 11/01/22 07:54 Abnormal Lab Findings: Abnormal Labs 10/31/22 10/31/22 10/31/22 18:15 18:15 18:15 WBC 11.7 H MCHC Neutrophils # 8.5 H Glucose 102 H POC Glucose (mg/dL) Alkaline Phosphatase 127 H Urine Appearance Cloudy H Urine Protein 2+ H Urine Glucose (UA) 3+ H Urine Ketones Trace H Ur Leukocyte Esterase Trace H Ur Squamous Epith Cells 19 H Urine Bacteria Rare H Urine Mucus Many H 11/01/22 11/01/22 11/01/22 07:54 07:54 11:17 WBC MCHC 30.2 L Neutrophils # Glucose 100 H POC Glucose (mg/dL) 129 H Alkaline Phosphatase Urine Appearance Urine Protein Urine Glucose (UA) Urine Ketones Ur Leukocyte Esterase Ur Squamous Epith Cells Urine Bacteria Urine Mucus Assessment and Plan Assessment: * Probable mild delirium from ?UTI * History of B12, folate, vitamin D deficiency * History of possible TIA/CVA * Reported history of MS, currently not on any disease modifying agent * Diabetes * Hypertension * Obesity Plan: * Carotid Doppler, rule out stenosis. * EEG rule out epileptiform activity * ID on board for rule out UTI. * Recommend complete tobacco cessation. * Recommend patient follow up with neurologist as an outpatient. * Neurology will follow clinically. Thank you for the consult.
--- NOTE | 2022-11-01 16:47 | CT ---
EXAMINATION TYPE: CT abdomen pelvis w con CT DLP: 2820.60 mGycm, Automated exposure control for dose reduction was used. DATE OF EXAM: 11/01/2022 4:22 PM COMPARISON: CT abdomen pelvis 10/31/2022, CT chest 10/24/2017 CLINICAL INDICATION:Female, 57 years old with history of fever/abd pain; fever/abd pain TECHNIQUE: Standard CT of the abdomen and pelvis following the administration of 100 cc of Isovue 3 00 IV contrast material and oral contrast. Coronal and sagittal reformats were performed. FINDINGS: LOWER CHEST: The visualized lung bases are clear. Cardiomegaly. Partial visualization of cardiac pace making leads. ABDOMEN LIVER: Unremarkable GALLBLADDER AND BILE DUCTS: The gallbladder is surgically absent. No biliary ductal dilatation. PANCREAS: Unremarkable. SPLEEN: Unremarkable. ADRENAL GLANDS: Unremarkable right adrenal gland. Additional increase in size of left adrenal gland m ass measuring 6.5 x 4.6 cm. Previously measured 5.7 x 4.2 cm in 2018. This demonstrates a Hounsfield unit 28. KIDNEYS AND URETERS: No evidence of hydronephrosis or renal calculus. Both kidneys enhance symmetrica lly. PELVIS BLADDER: Under distended, limiting evaluation. REPRODUCTIVE: The uterus is surgically absent. ABDOMEN & PELVIS STOMACH AND BOWEL: Stomach and duodenum are unremarkable. No focal bowel wall thickening or surroundi ng inflammatory changes. Enteric contrast reaches the ascending colon. No evidence of bowel obstructi on. PERITONEUM: No evidence of pneumoperitoneum or free fluid. No evidence for abscess. VASCULATURE: Infrarenal abdominal aortic fusiform aneurysm measuring up to 3.5 cm (series 4, image 49 ). Mild atherosclerotic calcification of the aorta and its branches. MUSCULOSKELETAL: No acute osseous abnormalities LYMPH NODES: Mildly enlarged 1.1 cm short axis right common iliac chain lymph node (series 4, image 6 5). SOFT TISSUE/ABDOMINAL WALL: Unremarkable IMPRESSION: 1. No acute abdominal/pelvic process. 2. Nonspecific mildly enlarged right common iliac chain lymph node which may be reactive. 3. Infrarenal abdominal aortic aneurysm measuring up to 3.5 cm. 4. Marginal increase in size of left adrenal mass from prior examination 2018. This can be further ev aluated with CT abdomen adrenal mass protocol as clinically indicated.
[2022-11-01 17:06] LABS: Glucose,Whole Blood 88 mg/dL (70-110)
[2022-11-01] MEDS: FLUTICASONE 50MCG/SPRAY NASAL 16GM EA NOSTRIL SCH (17:07)
--- NOTE | 2022-11-01 17:38 | US ---
EXAMINATION TYPE: US carotid duplex BILAT DATE OF EXAM: 11/01/2022 COMPARISON: 11/10/2012 CLINICAL INDICATION: Female, 57 years old with history of Episode of confusion; Episode of confusion TECHNIQUE: Carotid duplex ultrasound examination. Indirect Doppler criteria was utilized. FINDINGS: EXAM MEASUREMENTS: RIGHT: Peak Systolic Velocity (PSV) cm/sec ----- Right CCA: 38.4 ----- Right ICA: 58.8 ----- Right ECA: 87.4 ICA/CCA ratio: 1.45 RIGHT: End Diastole cm/sec ----- Right CCA: 9.9 ----- Right ICA: 14.4 ----- Right ECA: 11.7 LEFT: Peak Systolic Velocity (PSV) cm/sec ----- Left CCA: 62.0 ----- Left ICA: 119 ----- Left ECA: 137 ICA/CCA ratio: 1.92 LEFT: End Diastole cm/sec ----- Left CCA: 12.2 ----- Left ICA: 30.1 ----- Left ECA: 17.4 VERTEBRALS (direction of flow): Right Vertebral: Antegrade Left Vertebral: Antegrade Rhythm: Normal PRINCIPAL PRODUCT MANAGER NOTES: Exam technically difficult due to tortuous deep diving vessels No elevated velocit ies IMPRESSION: Less than 50% stenosis of the bilateral carotid bifurcations. Criteria for Assigning % of Stenosis / Diameter reduction (Estimation based on the indirect measurements of the internal carotid artery velocities (ICA PSV). 1. Normal (no stenosis)=ICA PSV < 125 cm/s: ratio < 2.0: ICA EDV<40 cm/s. 2. Less than 50% stenosis=ICA PSV < 125 cm/s: ratio < 2.0: ICA EDV<40 cm/s. 3. 50 to 69% stenosis=ICA PSV of 125 to 230 cm/s: ration 2.0 ? 4.0: ICA EDV 40-100 cm/s. 4. Greater than 70% stenosis to near occlusion= ICA PSV > 230 cm/s: ratio > 4.0: ICA EDV > 100 cm/s. 5. Near occlusion= ICA PSV velocities may be low or undetectable: variable ratio and ICA EDV. 6. Total occlusion=unable to detect flow.
[2022-11-01 20:22] LABS: Glucose,Whole Blood 126 mg/dL (70-110)
--- NOTE | 2022-11-01 20:33 | P.CONS ---
History of Present Illness - Reason for Consult Consult date: 11/01/22 - History of Present Illness Patient is a 57-year-old female with a past medical history of pain for diabetes mellitus fibromyalgia hypertension coronary artery disease and asthma apparently has been transferred from [facility] different facility concerning for TIA like symptoms and mental status changes apparently the patient did have multiple syncopal episodes over the last few days and needs to have some facial droop patient's symptoms resolved by the time the patient present to the hospital patient however was afebrile on presentation to hospital and no fever- recorded patient did have a white count of 9.7 with a left shift on admission patient was complaining of some urinary symptoms of burning and frequency and thought she did have UTI however urine drug in this admission shows trace leukocyte esterase and rare bacteria infection was consulted concerning for possible UTI patient also complaining of lower abdominal as well as bilateral groin area pain lower abdominal pain as well making 3-4 obtain radiation has some nausea but no vomiting denies having any diarrhea or constipation, patient did have history of penicillin allergy however has taken Keflex without any problem Past Medical History Past Medical History: Asthma, Coronary Artery Disease (CAD), Chest Pain / Angina, COPD, Diabetes Mellitus, Fibromyalgia, Hypertension, Myocardial Infarction ([place]), Sleep Apnea/CPAP/BIPAP Additional Past Medical History / Comment(s): MS, neuropathy, arthritis in back, knees, ankles, feet. VERTIGO. fibromyalgia, sleep apnea with cpap use, abd aneurysm Last Myocardial Infarction Date:: 2004 History of Any Multi-Drug Resistant Organisms: None Reported Past Surgical History: Appendectomy, Cholecystectomy, Hysterectomy, Pacemaker, Tonsillectomy Additional Past Surgical History / Comment(s): Bladder SUSPENSION. LEFT carpal tunnel. Cyst removed from left middle finger Past Anesthesia/Blood Transfusion Reactions: Previous Problems w/ Anesthesia, Motion Sickness Additional Past Anesthesia/Blood Transfusion Reaction / Comm: HAS BEEN COMBATIVE POST GENERAL ANESTHESIA Type of Cardiac Device: Permanent Pacemaker Device Placement Date:: 2017 Past Psychological History: Depression Past Alcohol Use History: Occasional Past Drug Use History: Marijuana - Past Family History Mother Family Medical History: Diabetes Mellitus Additional Family Medical History / Comment(s): heart problems Father Family Medical History: Diabetes Mellitus Additional Family Medical History / Comment(s): heart problems Medications and Allergies Home Medications Medication Instructions Recorded Confirmed Type Albuterol Inhaler [Ventolin Hfa 1 - 2 puff INHALATION RT-Q6H PRN 10/29/17 06/07/23 History Inhaler] Baclofen [Lioresal] 10 mg PO BID PRN 10/31/22 10/31/22 History DULoxetine HCL [Cymbalta] 30 mg PO DAILY 10/31/22 10/31/22 History Dapagliflozin Propanediol [Farxiga] 5 mg PO DAILY 10/31/22 10/31/22 History Dulaglutide [Trulicity] 1.5 mg SQ TH 10/31/22 10/31/22 History Estradiol Cream [Estrace Cream 1 gm VAGINAL DIRECTED 10/31/22 10/31/22 History 0.01%] Furosemide [Lasix] 40 mg PO DAILY 10/31/22 10/31/22 History busPIRone HCL [Buspar] 7.5 mg PO BID 10/31/22 10/31/22 History lisinopriL 40 mg PO DAILY 10/31/22 10/31/22 History Allergies Allergy/AdvReac Type Severity Reaction Status Date / Time acetaminophen [From Tylenol] Allergy Dyspnea Verified 10/31/22 17:26 codeine Allergy Dyspnea Verified 10/31/22 17:26 Melon Allergy Anaphylaxis Verified 08/09/17 17:52 morphine Allergy Rash/Hives Verified 08/09/17 17:52 Penicillins Allergy Dyspnea Verified 10/31/22 17:26 alprazolam [From Xanax] AdvReac See comment Verified 10/31/22 17:26 Physical Exam Vitals: Vital Signs Temp Pulse Pulse Resp BP BP Pulse Ox 11/01/22 07:10 98.4 F 50 L 18 170/76 97 11/01/22 02:29 97.3 F L 52 L 16 154/79 99 10/31/22 21:27 20 10/31/22 21:20 97.5 F L 52 L 20 148/74 97 10/31/22 20:57 52 L 18 160/68 96 10/31/22 19:48 54 L 18 168/76 98 10/31/22 16:09 98 F 51 L 18 183/86 99 Intake and Output 10/31/22 11/01/22 11/01/22 22:59 06:59 14:59 Intake Total 240 400 Balance 240 400 Intake: Oral 240 400 Other: Voiding Method Diaper # Voids 2 Weight 145.15 kg Results CBC & Chem 7: 11/01/22 07:54 11/01/22 07:54 Labs: Abnormal Lab Results - Last 24 Hours (Table) 10/31/22 10/31/22 10/31/22 Range/Units 18:15 18:15 18:15 WBC 11.7 H (3.8-10.6) k/uL MCHC (31.0-37.0) g/dL Neutrophils # 8.5 H (1.3-7.7) k/uL Glucose 102 H (74-99) mg/dL Alkaline Phosphatase 127 H (38-126) U/L Urine Appearance Cloudy H (Clear) Urine Protein 2+ H (Negative) Urine Glucose (UA) 3+ H (Negative) Urine Ketones Trace H (Negative) Ur Leukocyte Esterase Trace H (Negative) Ur Squamous Epith Cells 19 H (0-4) /hpf Urine Bacteria Rare H (None) /hpf Urine Mucus Many H (None) /hpf 11/01/22 11/01/22 Range/Units 07:54 07:54 WBC (3.8-10.6) k/uL MCHC 30.2 L (31.0-37.0) g/dL Neutrophils # (1.3-7.7) k/uL Glucose 100 H (74-99) mg/dL Alkaline Phosphatase (38-126) U/L Urine Appearance (Clear) Urine Protein (Negative) Urine Glucose (UA) (Negative) Urine Ketones (Negative) Ur Leukocyte Esterase (Negative) Ur Squamous Epith Cells (0-4) /hpf Urine Bacteria (None) /hpf Urine Mucus (None) /hpf Assessment and Plan Plan: 1patient was in the hospital predominantly with mental status changes patient with concern for TIA patient also complains of urinary burning and frequency urine however was not significant positive though UA was mildly positive possible UTI not interested in any of the symptoms patient presented with 2-patient also have evidence of bilateral currently requiring his kidney disease 3-lower abdominal pain and tenderness rule out intra-abdominal pathology 4-penicillin allergy has tolerated Keflex without any problem 5-we will obtain CT abdominal pelvis with oral contrast to rule out intra- abdominal pathology 6-nystatin powder to bilateral groin area 7-empirically add Rocephin while waiting for the culture to finalize We will follow on clinical condition and cultures to further adjust medication if needed Thank you for this consultation we will follow the patient along with you Time with Patient: Greater than 30
[2022-11-01] MEDS: NYSTATIN 100,000 UNIT/GM POWD 15 GM TOPICAL SCH (21:38)
[2022-11-02] MEDS: hydrALAZINE HCL 20 MG/ML 1 ML VIAL IVP PRN ×3 (00:56→21:48)
[2022-11-02] MEDS: SODIUM CHLORIDE 0.9% 1,000 ML IV SCH ×4 (01:55→21:46)
[2022-11-02] MEDS: lisinopriL 20 MG TAB PO SCH (05:49)
[2022-11-02] MEDS: FUROSEMIDE 40 MG TAB PO SCH (05:50)
[2022-11-02] MEDS: TRELEGY ELLIPTA 100 MCG INHALATION SCH (07:40)
[2022-11-02 07:41] LABS: Glucose,Whole Blood 136 mg/dL (70-110)
[2022-11-02] MEDS: GABAPENTIN 400 MG CAP PO SCH ×3 (09:10→21:44)
[2022-11-02] MEDS: DAPAGLIFLOZIN PROPANEDIOL 5 MG TABLET PO SCH (09:10)
[2022-11-02] MEDS: DULoxetine HCL 30 MG CAPSULE.DR PO SCH (09:10)
[2022-11-02] MEDS: busPIRone HCl 5 MG TAB PO SCH ×2 (09:10→21:44)
[2022-11-02] MEDS: NYSTATIN 100,000 UNIT/GM POWD 15 GM TOPICAL SCH ×2 (09:11→21:46)
[2022-11-02] MEDS: FLUTICASONE 50MCG/SPRAY NASAL 16GM EA NOSTRIL SCH (09:13)
[2022-11-02] MEDS: CYANOCOBALAMIN 1,000 MCG/ML 1 ML VIAL IM SCH (11:50)
[2022-11-02] MEDS: FOLIC ACID 1 MG TAB PO SCH (11:50)
[2022-11-02 12:03] LABS: Glucose,Whole Blood 146 mg/dL (70-110)
[2022-11-02 12:19] LABS: Chol/HDL Ratio 2.91 Ratio; LDL Cholesterol,Calculated 88.1 mg/dL (0.0-131.0)
--- NOTE | 2022-11-02 15:41 | EEG ---
ELECTROENCEPHALOGRAM REPORT PREAMBLE: This is a 57-year-old female with episodes of confusion. This study is performed to evaluate for any epileptiform activity. CURRENT MEDICATIONS: 1. Lioresal. 2. BuSpar. 3. Ceftriaxone. 4. Farxiga. 5. Cymbalta. 6. Lasix. 7. Neurontin. 8. Dilaudid. 9. Zestril. 10.Trulicity. 11.Zofran. 12.Trelegy. EEG FINDINGS: This is a 21-channel digital EEG recorded with video component, utilizing 10/20 international system with referential and bipolar montages. The patient was drowsy during most of the study, with presence of bilaterally symmetric theta frequency rhythm. Brief period of wakefulness was associated with normal appearing 8 to 9 hertz alpha activity, seen in posterior head region, reactive to eye opening and closing. Photic driving response was not seen. Some occasional left temporal sharp transients were seen during drowsiness, which did not appear epileptiform in nature. No focal or generalized epileptiform activity was seen. EKG channel showed no obvious arrhythmia. IMPRESSION: This is a normal awake and drowsy EEG. No focal, lateralized or epileptiform activity was seen. MMODL / IJN: [id number] /
[2022-11-02] MEDS: DOCUSATE 100 MG CAP PO SCH ×2 (16:07→21:44)
[2022-11-02] MEDS: HYDROmorphone 1 MG/ML 1 ML SYRINGE IVP PRN (16:07)
--- NOTE | 2022-11-02 16:27 | P.PN ---
Subjective Progress Note Date: 11/02/22 Principal diagnosis: UTI and groin area cutaneous candidiasis Patient is a 57-year-old female with a past medical history of pain for diabetes mellitus fibromyalgia hypertension coronary artery disease and asthma apparently has been transferred from [facility] facility concerning for TIA like symptoms and mental status changes, patient did have urinary symptoms concerning for UTI and also evidence of groin area cutaneous candidiasis On today's evaluation that is 11/02/2022, the patient denies having any fever or chills, still complaining of some discomfort to the lower abdominal area no nausea no vomiting no diarrhea no chest pain shortness of breath or cough Objective - Vital Signs Vital signs: Vital Signs Temp 97.9 F 11/02/22 07:37 Pulse 51 L 11/02/22 07:37 Resp 19 11/02/22 07:37 BP 144/92 11/02/22 07:37 Pulse Ox 94 L 11/02/22 07:41 FiO2 Intake & Output 11/01/22 11/02/22 11/02/22 18:59 06:59 18:59 Intake Total 780 Balance 780 Intake: Intake, IV Titration 780 Amount Sodium Chloride 0.9% 1, 780 000 ml @ 130 mls/hr IV . Q7H42M [facility] Rx#:[id number] Other: Voiding Method Diaper Diaper # Voids 9 2 # Bowel Movements 1 - Exam GENERAL DESCRIPTION: A middle-age female up in bed in no distress RESPIRATORY SYSTEM: Unlabored breathing , decreased breath sounds at bases HEART: S1 S2 regular rate and rhythm , ABDOMEN: Soft , no tenderness EXTREMITIES: No edema feet - Labs CBC & Chem 7: 11/01/22 07:54 11/01/22 07:54 Labs: Abnormal Lab Results - Last 24 Hours (Table) 10/31/22 11/01/22 11/02/22 Range/Units 09:00 20:19 07:40 POC Glucose (mg/dL) 126 H 136 H (70-110) mg/dL Triglycerides 154.00 H (0.00-149.00) mg/dL HDL Cholesterol 62.10 H (40.00-60.00) mg/dL 11/02/22 Range/Units 12:01 POC Glucose (mg/dL) 146 H (70-110) mg/dL Triglycerides (0.00-149.00) mg/dL HDL Cholesterol (40.00-60.00) mg/dL Assessment and Plan (1) Cutaneous candidiasis Current Visit: Yes Status: Acute Code(s): B37.2 - CANDIDIASIS OF SKIN AND NAIL SNOMED Code(s): 80766618 (2) UTI (urinary tract infection) Current Visit: Yes Status: Acute Code(s): N39.0 - URINARY TRACT INFECTION, SITE NOT SPECIFIED SNOMED Code(s): 62321160 Plan: 1patient was in the hospital predominantly with mental status changes patient with concern for TIA patient also complains of urinary burning and frequency urine however was not significant positive though UA was mildly positive possible UTI not interested in any of the symptoms patient presented with 2-patient also have evidence of bilateral groin area cutaneous candidiasis 3-lower abdominal pain and tenderness patient did have CT of abdominal pelvis that was negative for any acute abnormality did shows right groin lym phadenopathy which the patient mention is chronic for her and currently do not have any wound swelling redness of the right lower extremity 4-Patient to continue with powder to bilateral groin area, along with Rocephin while waiting for the culture to finalize Time with Patient: Less than 30
[2022-11-02 17:24] LABS: Glucose,Whole Blood 103 mg/dL (70-110)
--- NOTE | 2022-11-02 17:33 | P.PN ---
Subjective Progress Note Date: 11/02/22 57-year-old female with a past medical history of pain for diabetes mellitus fibromyalgia hypertension coronary artery disease and asthma apparently has been transferred from mid different facility concerning for TIA like symptoms and mental status changes apparently the patient did have multiple syncopal episodes over the last few days and needs to have some facial droop patient's symptoms resolved by the time the patient present to the hospital patient however was afebrile on presentation to hospital and no fever-recorded patient did have a white count of 9.7 with a left shift on admission patient was complaining of some urinary symptoms of burning and frequency and thought she did have UTI however urine drug in this admission shows trace leukocyte esterase and rare bacteria infection was consulted concerning for possible UTI patient also complaining of lower abdominal as well as bilateral groin area pain lower abdominal pain as well making 3-4 obtain radiation has some nausea but no vomiting denies having any diarrhea or constipation, patient did have history of penicillin allergy however has taken Keflex without any problem Objective - Vital Signs Vital signs: Vital Signs Temp 97.9 F 11/02/22 07:37 Pulse 51 L 11/02/22 07:37 Resp 19 11/02/22 07:37 BP 144/92 11/02/22 07:37 Pulse Ox 94 L 11/02/22 07:41 FiO2 Intake & Output 11/01/22 11/02/22 11/02/22 18:59 06:59 18:59 Intake Total 780 Balance 780 Intake: Intake, IV Titration 780 Amount Sodium Chloride 0.9% 1, 780 000 ml @ 130 mls/hr IV . Q7H42M [facility] Rx#:[id number] Other: Voiding Method Diaper Diaper # Voids 9 2 # Bowel Movements 1 - Exam PHYSICAL EXAMINATION: GENERAL: The patient is alert and oriented x3, not in any acute distress. Well developed, well nourished. HEENT: Pupils are round and equally reacting to light. EOMI. No scleral icterus. No conjunctival pallor. Normocephalic, atraumatic. No pharyngeal erythema. No thyromegaly. CARDIOVASCULAR: S1 and S2 present. No murmurs, rubs, or gallops. PULMONARY: Chest is clear to auscultation, no wheezing or crackles. ABDOMEN: Soft, nontender, nondistended, normoactive bowel sounds. No palpable organomegaly. MUSCULOSKELETAL: No joint swelling or deformity. EXTREMITIES: No cyanosis, clubbing, or pedal edema. NEUROLOGICAL: Gross neurological examination did not reveal any focal deficits. SKIN: No rashes. - Labs CBC & Chem 7: 11/01/22 07:54 11/01/22 07:54 Labs: Abnormal Lab Results - Last 24 Hours (Table) 11/01/22 11/02/22 Range/Units 20:19 07:40 POC Glucose (mg/dL) 126 H 136 H (70-110) mg/dL Assessment and Plan Assessment: 1. Mental status change; possible TIA - Neurology on board and stroke workup has been completed; carotid Doppler is unremarkable; EEG is ordered and pending 2. UTI/metabolic toxic encephalopathy; patient has been placed on; blood cultures and urine cultures obtained and pending 3. Lower abdominal pain; ID recommending CT of the abdomen to rule out intra- abdominal pathology 4. Enlarged right common iliac lymph node; could be reactive 5. Left adrenal mass; slight increase in size compared to last computed tomography scan completed in 2018 6. Hypertension; lisinopril 40 mg daily; hydralazine 10 mg IV every 6 hours when necessary 7. Diabetes mellitus; we will continue home regimen with Zay and Elva; monitor Accu-Cheks before meals and at bedtime with insulin sliding scale 8. Chronic back pain
[2022-11-02 20:36] LABS: Glucose,Whole Blood 104 mg/dL (70-110)
[2022-11-03] MEDS: HYDROmorphone 1 MG/ML 1 ML SYRINGE IVP PRN ×4 (01:17→23:31)
[2022-11-03 07:57] LABS: Glucose,Whole Blood 112 mg/dL (70-110)
[2022-11-03] MEDS: DAPAGLIFLOZIN PROPANEDIOL 5 MG TABLET PO SCH (08:29)
[2022-11-03] MEDS: CYANOCOBALAMIN 1,000 MCG/ML 1 ML VIAL IM SCH (08:29)
[2022-11-03] MEDS: DULoxetine HCL 30 MG CAPSULE.DR PO SCH (08:30)
[2022-11-03] MEDS: DOCUSATE 100 MG CAP PO SCH ×2 (08:30→20:59)
[2022-11-03] MEDS: FUROSEMIDE 40 MG TAB PO SCH (08:31)
[2022-11-03] MEDS: FOLIC ACID 1 MG TAB PO SCH (08:31)
[2022-11-03] MEDS: GABAPENTIN 400 MG CAP PO SCH ×3 (08:31→20:59)
[2022-11-03] MEDS: busPIRone HCl 5 MG TAB PO SCH ×2 (08:31→20:59)
[2022-11-03] MEDS: FLUTICASONE 50MCG/SPRAY NASAL 16GM EA NOSTRIL SCH (08:32)
[2022-11-03] MEDS: NYSTATIN 100,000 UNIT/GM POWD 15 GM TOPICAL SCH ×2 (08:32→21:00)
[2022-11-03] MEDS: lisinopriL 20 MG TAB PO SCH (08:37)
[2022-11-03] MEDS: TRELEGY ELLIPTA 100 MCG INHALATION SCH (09:16)
--- NOTE | 2022-11-03 10:27 | P.PN ---
Subjective Progress Note Date: 11/03/22 Principal diagnosis: UTI and groin area cutaneous candidiasis Patient is a 57-year-old female with a past medical history of pain for diabetes mellitus fibromyalgia hypertension coronary artery disease and asthma apparently has been transferred from mid different facility concerning for TIA like symptoms and mental status changes, patient did have urinary symptoms concerning for UTI and also evidence of groin area cutaneous candidiasis On today's evaluation that is 11/03/2022, the patient remains to be afebrile, patient denies having any chest pain shortness of breath or cough, nausea no vomiting no diarrhea rather the patient is constipated asking for laxative Objective - Vital Signs Vital signs: Vital Signs Temp 97.5 F L 11/03/22 00:49 Pulse 51 L 11/03/22 00:49 Resp 16 11/03/22 00:49 BP 188/95 11/03/22 00:49 Pulse Ox 99 11/03/22 00:49 FiO2 Intake & Output 11/02/22 11/03/22 11/03/22 18:59 06:59 18:59 Intake Total 1560 Balance 1560 Intake: Intake, IV Titration 1560 Amount Sodium Chloride 0.9% 1, 1560 000 ml @ 130 mls/hr IV . Q7H42M [facility] Rx#:[id number] Other: Voiding Method Diaper Toilet # Voids 4 - Exam GENERAL DESCRIPTION: A middle-age female up in bed in no distress RESPIRATORY SYSTEM: Unlabored breathing , decreased breath sounds at bases HEART: S1 S2 regular rate and rhythm , ABDOMEN: Soft , no tenderness EXTREMITIES: No edema feet - Labs CBC & Chem 7: 11/01/22 07:54 11/01/22 07:54 Labs: Abnormal Lab Results - Last 24 Hours (Table) 10/31/22 11/02/22 11/02/22 Range/Units 09:00 07:40 12:01 POC Glucose (mg/dL) 136 H 146 H (70-110) mg/dL Triglycerides 154.00 H (0.00-149.00) mg/dL HDL Cholesterol 62.10 H (40.00-60.00) mg/dL Assessment and Plan (1) Cutaneous candidiasis Current Visit: Yes Status: Acute Code(s): B37.2 - CANDIDIASIS OF SKIN AND NAIL SNOMED Code(s): 03988185 (2) UTI (urinary tract infection) Current Visit: Yes Status: Acute Code(s): N39.0 - URINARY TRACT INFECTION, SITE NOT SPECIFIED SNOMED Code(s): 84290183 Plan: 1patient was in the hospital predominantly with mental status changes patient with concern for TIA patient also complains of urinary burning and frequency urine however was not significant positive though UA was mildly positive possible UTI not interested in any of the symptoms patient presented with 2-patient also have evidence of bilateral groin area cutaneous candidiasis 3-lower abdominal pain and tenderness patient did have CT of abdominal pelvis that was negative for any acute abnormality did shows right groin lymphadenopathy which the patient mention is chronic for her and currently do not have any wound swelling redness of the right lower extremity 4-Patient to continue with nystatin powder to bilateral groin area, along with Rocephin with a plan for short course of Ceftin on discharge Time with Patient: Less than 30
[2022-11-03 12:00] LABS: Glucose,Whole Blood 98 mg/dL (70-110)
[2022-11-03] MEDS: polyethylene glycoL 3350 17 GM POWD.PACK PO SCH (12:24)
[2022-11-03] MEDS: hydrALAZINE HCL 20 MG/ML 1 ML VIAL IVP PRN ×2 (12:25→21:03)
[2022-11-03 13:28] LABS: Methylmalonic Acid 0.83 umol/L (<0.40)
[2022-11-03] MEDS: SODIUM CHLORIDE 0.9% 1,000 ML IV SCH ×3 (13:54→23:32)
[2022-11-03 17:10] LABS: Glucose,Whole Blood 109 mg/dL (70-110)
[2022-11-03] MEDS: ONDANSETRON 4 MG/2 ML VIAL IVP PRN (18:42)
[2022-11-03 20:39] LABS: Glucose,Whole Blood 111 mg/dL (70-110)
[2022-11-03] MEDS: BACLOFEN 10 MG TAB PO PRN (21:50)
[2022-11-04] MEDS: hydrALAZINE HCL 20 MG/ML 1 ML VIAL IVP PRN ×2 (02:20→17:22)
[2022-11-04 07:03] LABS: Glucose,Whole Blood 103 mg/dL (70-110)
[2022-11-04] MEDS: busPIRone HCl 5 MG TAB PO SCH ×2 (08:50→21:06)
[2022-11-04] MEDS: FOLIC ACID 1 MG TAB PO SCH (08:50)
[2022-11-04] MEDS: lisinopriL 20 MG TAB PO SCH (08:50)
[2022-11-04] MEDS: DOCUSATE 100 MG CAP PO SCH ×2 (08:50→21:06)
[2022-11-04] MEDS: polyethylene glycoL 3350 17 GM POWD.PACK PO SCH (08:50)
[2022-11-04] MEDS: GABAPENTIN 400 MG CAP PO SCH ×3 (08:51→21:06)
[2022-11-04] MEDS: NYSTATIN 100,000 UNIT/GM POWD 15 GM TOPICAL SCH ×2 (08:51→21:07)
[2022-11-04] MEDS: DULoxetine HCL 30 MG CAPSULE.DR PO SCH (08:51)
[2022-11-04] MEDS: FUROSEMIDE 40 MG TAB PO SCH (08:51)
[2022-11-04] MEDS: CYANOCOBALAMIN 1,000 MCG/ML 1 ML VIAL IM SCH (08:52)
[2022-11-04] MEDS: DAPAGLIFLOZIN PROPANEDIOL 5 MG TABLET PO SCH (08:52)
[2022-11-04] MEDS: FLUTICASONE 50MCG/SPRAY NASAL 16GM EA NOSTRIL SCH (08:52)
[2022-11-04] MEDS: TRELEGY ELLIPTA 100 MCG INHALATION SCH (09:10)
[2022-11-04 11:09] LABS: Glucose,Whole Blood 145 mg/dL (70-110)
[2022-11-04] MEDS: HYDROmorphone 1 MG/ML 1 ML SYRINGE IVP PRN ×2 (11:21→19:52)
[2022-11-04] MEDS: SODIUM CHLORIDE 0.9% 1,000 ML IV SCH ×3 (12:58→18:01)
--- NOTE | 2022-11-04 15:44 | P.PN ---
Subjective Progress Note Date: 11/04/22 Principal diagnosis: UTI and groin area cutaneous candidiasis Patient is a 57-year-old female with a past medical history of pain for diabetes mellitus fibromyalgia hypertension coronary artery disease and asthma apparently has been transferred from mid different facility concerning for TIA like symptoms and mental status changes, patient did have urinary symptoms concerning for UTI and also evidence of groin area cutaneous candidiasis On today's evaluation that is 11/04/2022, the patient denies any fever or any chills, patient denies having any chest pain shortness of breath or cough, the patient denies having any nausea no vomiting and did have relief of her c onstipation Objective - Vital Signs Vital signs: Vital Signs Temp 98.4 F 11/04/22 07:04 Pulse 52 L 11/04/22 07:04 Resp 18 11/04/22 07:04 BP 165/71 11/04/22 07:04 Pulse Ox 93 L 11/04/22 07:04 FiO2 Intake & Output 11/03/22 11/04/22 11/04/22 18:59 06:59 18:59 Intake Total 240 Balance 240 Intake: Intake, IV Titration 240 Amount Sodium Chloride 0.9% 1, 240 000 ml @ 130 mls/hr IV . Q7H42M [facility] Rx#:[id number] Other: Voiding Method Toilet Toilet Toilet # Voids 4 # Bowel Movements 1 - Exam GENERAL DESCRIPTION: A middle-age female up in bed in no distress RESPIRATORY SYSTEM: Unlabored breathing , decreased breath sounds at bases HEART: S1 S2 regular rate and rhythm , ABDOMEN: Soft , no tenderness EXTREMITIES: No edema feet - Labs CBC & Chem 7: 11/01/22 07:54 11/01/22 07:54 Labs: Abnormal Lab Results - Last 24 Hours (Table) 10/31/22 11/01/22 11/03/22 Range/Units 09:00 16:36 20:36 POC Glucose (mg/dL) 111 H (70-110) mg/dL Triglycerides 154.00 H (0.00-149.00) mg/dL HDL Cholesterol 62.10 H (40.00-60.00) mg/dL Methylmalonic Acid 0.83 H (<0.40) umol/L 11/04/22 Range/Units 11:07 POC Glucose (mg/dL) 145 H (70-110) mg/dL Triglycerides (0.00-149.00) mg/dL HDL Cholesterol (40.00-60.00) mg/dL Methylmalonic Acid (<0.40) umol/L Assessment and Plan (1) Cutaneous candidiasis Current Visit: Yes Status: Acute Code(s): B37.2 - CANDIDIASIS OF SKIN AND NAIL SNOMED Code(s): 92243407 (2) UTI (urinary tract infection) Current Visit: Yes Status: Acute Code(s): N39.0 - URINARY TRACT INFECTION, SITE NOT SPECIFIED SNOMED Code(s): 95043602 Plan: 1patient was in the hospital predominantly with mental status changes patient with concern for TIA patient also complains of urinary burning and frequency urine however was not significant positive though UA was mildly positive possible UTI not interested in any of the symptoms patient presented with 2-patient also have evidence of bilateral groin area cutaneous candidiasis 3-lower abdominal pain and tenderness patient did have CT of abdominal pelvis that was negative for any acute abnormality did shows right groin lymphad enopathy which the patient mention is chronic for her and currently do not have any wound swelling redness of the right lower extremity 4-Patient seemed to showing overall clinical improvement, plan is to continue with nystatin powder to bilateral groin area, along with Rocephin with a plan for short course of Ceftin on discharge Time with Patient: Less than 30
--- NOTE | 2022-11-04 15:49 | P.PN ---
Subjective Progress Note Date: 11/03/22 57-year-old female with a past medical history of pain for diabetes mellitus fibromyalgia hypertension coronary artery disease and asthma apparently has been transferred from mid different facility concerning for TIA like symptoms and mental status changes apparently the patient did have multiple syncopal episodes over the last few days and needs to have some facial droop patient's symptoms resolved by the time the patient present to the hospital patient however was afebrile on presentation to hospital and no fever-recorded patient did have a white count of 9.7 with a left shift on admission patient was complaining of some urinary symptoms of burning and frequency and thought she did have UTI however urine drug in this admission shows trace leukocyte esterase and rare bacteria infection was consulted concerning for possible UTI patient also complaining of lower abdominal as well as bilateral groin area pain lower abdominal pain as well making 3-4 obtain radiation has some nausea but no vomiting denies having any diarrhea or constipation, patient did have history of penicillin allergy however has taken Keflex without any problem 11/03/2022 -- the patient is seen and evaluated in room at bedside; remains to be afebrile, patient denies having any chest pain shortness of breath or cough, nausea no vomiting no diarrhea rather the patient is constipated asking for laxative Vital signs are stable with temperature 5.5, pulse 71, respirations 16 and blood pressure of 180-95 patient was in the hospital predominantly with mental status changes patient with concern for TIA patient also complains of urinary burning and frequency urine however was not significant positive though UA was mildly positive possible UTI not interested in any of the symptoms patient presented with -patient also have evidence of bilateral groin area cutaneous candidiasis -lower abdominal pain and tenderness patient did have CT of abdominal pelvis that was negative for any acute abnormality did shows right groin lymphadenopathy which the patient mention is chronic for her and currently do not have any wound swelling redness of the right lower extremity -Patient to continue with nystatin powder to bilateral groin area, along with Rocephin with a plan for short course of Ceftin on discharge Objective - Vital Signs Vital signs: Vital Signs Temp 97.8 F 11/03/22 11:57 Pulse 53 L 11/03/22 13:34 Resp 18 11/03/22 11:57 BP 163/72 11/03/22 13:34 Pulse Ox 91 L 11/03/22 11:57 FiO2 Intake & Output 11/02/22 11/03/22 11/03/22 18:59 06:59 18:59 Intake Total 1560 Balance 1560 Intake: Intake, IV Titration 1560 Amount Sodium Chloride 0.9% 1, 1560 000 ml @ 130 mls/hr IV . Q7H42M [facility] Rx#:[id number] Other: Voiding Method Diaper Toilet Toilet # Voids 4 - Exam PHYSICAL EXAMINATION: GENERAL: The patient is alert and oriented x3, not in any acute distress. Well developed, well nourished. HEENT: Pupils are round and equally reacting to light. EOMI. No scleral icterus. No conjunctival pallor. Normocephalic, atraumatic. No pharyngeal erythema. No t hyromegaly. CARDIOVASCULAR: S1 and S2 present. No murmurs, rubs, or gallops. PULMONARY: Chest is clear to auscultation, no wheezing or crackles. ABDOMEN: Soft, nontender, nondistended, normoactive bowel sounds. No palpable organomegaly. MUSCULOSKELETAL: No joint swelling or deformity. EXTREMITIES: No cyanosis, clubbing, or pedal edema. NEUROLOGICAL: Gross neurological examination did not reveal any focal deficits. SKIN: No rashes. - Labs CBC & Chem 7: 11/01/22 07:54 11/01/22 07:54 Labs: Abnormal Lab Results - Last 24 Hours (Table) 11/01/22 11/03/22 Range/Units 16:36 07:55 POC Glucose (mg/dL) 112 H (70-110) mg/dL Methylmalonic Acid 0.83 H (<0.40) umol/L Assessment and Plan Assessment: 1. Mental status change; possible TIA - Neurology on board and stroke workup has been completed; carotid Doppler is unremarkable; EEG is ordered and pending 2. UTI/metabolic toxic encephalopathy; patient has been placed on; blood cultures and urine cultures obtained and pending 3. Lower abdominal pain; ID recommending CT of the abdomen to rule out intra- abdominal pathology 4. Enlarged right common iliac lymph node; could be reactive 5. Left adrenal mass; slight increase in size compared to last computed tomography scan completed in 2018 6. Hypertension; lisinopril 40 mg daily; hydralazine 10 mg IV every 6 hours when necessary 7. Diabetes mellitus; we will continue home regimen with Khoa; monitor Accu-Cheks before meals and at bedtime with insulin sliding scale 8. Chronic back pain
[2022-11-04 17:16] LABS: Glucose,Whole Blood 138 mg/dL (70-110)
--- NOTE | 2022-11-04 17:17 | CT ---
EXAMINATION TYPE: CT brain wo con DATE OF EXAM: 11/04/2022 COMPARISON: 11/01/2022 HISTORY: 57-year-old female confusion, altered mental status TECHNIQUE: Examination was done in axial plane without intravenous contrast. Coronal and sagittal r econstructions performed. CT DLP: 1019.6 mGycm Automated exposure control for dose reduction was used. FINDINGS: There is no evidence of acute intracranial hemorrhage, acute ischemic changes, mass, mass-effect, or extra-axial fluid collection. There is no effacement of cerebral sulci or basal subarachnoid cister ns. There is no midline shift. Duarte-white matter distinction is preserved. Mild generalized supratentorial volume loss. Secondary mild prominence to the ventricular system. Scattered mild mucosal thickening ethmoid air cells. Some fluid within the right mastoid air cells ex tending into the right middle ear cavity. Leftward nasal septal deviation. Incidental fullness of the adenoid soft tissues. IMPRESSION: 1. Mild generalized atrophy. No acute intracranial abnormality seen. 2. Fluid within the right mastoid air cells extending into the right middle ear cavity. Correlate for any pain here to exclude otomastoiditis. 3. Incidental fullness of the adenoid soft tissues.
[2022-11-04 17:19] LABS: Appearance,Urine Clear (Clear); Bilirubin,Urine Negative (Negative); Blood,Urine Negative (Negative); Color,Urine Yellow; Glucose,Urine (UA) 4+ (Negative); Hyaline Casts,Urine 1 /lpf (0-2); Ketones,Urine Negative (Negative); Leukocyte Esterase,Urine Negative (Negative); Mucus,Urine Rare /hpf; Nitrite,Urine Negative (Negative); PH, Urine 5.5 (5.0-8.0); Protein,Urine 1+ (Negative); RBC,Urine 1 /hpf (0-5); Specific Gravity,Urine 1.026 (1.001-1.035); Squamous Epithelial Cell,Urine 1 /hpf (0-4); Urobilinogen,Urine <2.0 mg/dL (<2.0); WBC,Urine 1 /hpf (0-5)
[2022-11-04] MEDS: ONDANSETRON 4 MG/2 ML VIAL IVP PRN (19:52)
[2022-11-04 20:17] LABS: Glucose,Whole Blood 201 mg/dL (70-110)
[2022-11-05] MEDS: hydrALAZINE HCL 20 MG/ML 1 ML VIAL IVP PRN ×2 (01:55→19:47)
[2022-11-05] MEDS: HYDROmorphone 1 MG/ML 1 ML SYRINGE IVP PRN ×2 (03:53→09:04)
[2022-11-05] MEDS: ONDANSETRON 4 MG/2 ML VIAL IVP PRN (03:53)
[2022-11-05 07:28] LABS: Glucose,Whole Blood 103 mg/dL (70-110)
[2022-11-05] MEDS: polyethylene glycoL 3350 17 GM POWD.PACK PO SCH (08:51)
[2022-11-05] MEDS: CYANOCOBALAMIN 1,000 MCG/ML 1 ML VIAL IM SCH (08:52)
[2022-11-05] MEDS: busPIRone HCl 5 MG TAB PO SCH ×2 (08:53→21:35)
[2022-11-05] MEDS: lisinopriL 20 MG TAB PO SCH (08:53)
[2022-11-05] MEDS: DAPAGLIFLOZIN PROPANEDIOL 5 MG TABLET PO SCH (08:53)
[2022-11-05] MEDS: DULoxetine HCL 30 MG CAPSULE.DR PO SCH (08:53)
[2022-11-05] MEDS: DOCUSATE 100 MG CAP PO SCH ×2 (08:54→21:35)
[2022-11-05] MEDS: NYSTATIN 100,000 UNIT/GM POWD 15 GM TOPICAL SCH ×2 (08:54→21:36)
[2022-11-05] MEDS: FUROSEMIDE 40 MG TAB PO SCH (08:54)
[2022-11-05] MEDS: FOLIC ACID 1 MG TAB PO SCH (08:54)
[2022-11-05] MEDS: FLUTICASONE 50MCG/SPRAY NASAL 16GM EA NOSTRIL SCH (08:55)
[2022-11-05] MEDS: GABAPENTIN 400 MG CAP PO SCH ×2 (09:04→16:27)
[2022-11-05] MEDS: TRELEGY ELLIPTA 100 MCG INHALATION SCH (09:59)
[2022-11-05 11:43] LABS: Glucose,Whole Blood 107 mg/dL (70-110)
[2022-11-05] MEDS: amLODIPine 5 MG TAB PO SCH (13:04)
[2022-11-05] MEDS: ASPIRIN 325 MG TAB PO SCH (15:09)
[2022-11-05 17:06] LABS: Glucose,Whole Blood 127 mg/dL (70-110)
[2022-11-05] MEDS: SODIUM CHLORIDE 0.9% 1,000 ML IV SCH (17:24)
--- NOTE | 2022-11-05 20:19 | P.PN ---
Subjective Progress Note Date: 11/05/22 57-year-old female with a past medical history of pain for diabetes mellitus fibromyalgia hypertension coronary artery disease and asthma apparently has been transferred from mid different facility concerning for TIA like symptoms and mental status changes apparently the patient did have multiple syncopal episodes over the last few days and needs to have some facial droop patient's symptoms resolved by the time the patient present to the hospital patient however was afebrile on presentation to hospital and no fever-recorded patient did have a white count of 9.7 with a left shift on admission patient was complaining of some urinary symptoms of burning and frequency and thought she did have UTI however urine drug in this admission shows trace leukocyte esterase and rare bacteria infection was consulted concerning for possible UTI patient also complaining of lower abdominal as well as bilateral groin area pain lower abdominal pain as well making 3-4 obtain radiation has some nausea but no vomiting denies having any diarrhea or constipation, patient did have history of penicillin allergy however has taken Keflex without any problem 11/03/2022 -- the patient is seen and evaluated in room at bedside; remains to be afebrile, patient denies having any chest pain shortness of breath or cough, nausea no vomiting no diarrhea rather the patient is constipated asking for laxative Vital signs are stable with temperature 5.5, pulse 71, respirations 16 and blood pressure of 180-95 patient was in the hospital predominantly with mental status changes patient with concern for TIA patient also complains of urinary burning and frequency urine however was not significant positive though UA was mildly positive possible UTI not interested in any of the symptoms patient presented with -patient also have evidence of bilateral groin area cutaneous candidiasis -lower abdominal pain and tenderness patient did have CT of abdominal pelvis that was negative for any acute abnormality did shows right groin lymphadenopathy which the patient mention is chronic for her and currently do not have any wound swelling redness of the right lower extremity -Patient to continue with nystatin powder to bilateral groin area, along with Rocephin with a plan for short course of Ceftin on discharge 11/05/2022 Patient is seen and evaluated in follow-up today with neurology and infectious disease following. Patient had a brief episode of forgetfulness and per family could not recall who her family was or what their names were which has resolved. Patient did have repeat CT showing no acute process. Neurology evaluated the patient again recommending resuming aspirin and also obtaining a 2-D echo as patient has not been taking any medications for this. Patient is afebrile denies chest pain or shortness of breath. Patient having some mild diffuse abdominal pain on the left upper quadrant and CT abdomen was negative. Patient is maintained on ceftriaxone along with nystatin powder and will continue short course of oral Ceftin per ID recommendations. Will await 2-D echo per neurology recommendations with probable discharge in 24 hours. Review of systems: Constitutional: No reports of fatigue, fever, or chills Cardiovascular: No reports of chest pain or palpitations Respiratory: No reports of shortness of breath or cough GI: No reports of nausea, vomiting, or diarrhea : No reports of dysuria or retention Neurovascular: No reports of weakness or numbness All medications have been reviewed Physical exam: GENERAL: The patient is alert and oriented x3, not in any acute distress. Well developed, well nourished. Morbidly obese HEENT: Pupils are round and equally reacting to light. EOMI. No scleral icterus. No conjunctival pallor. Normocephalic, atraumatic. No pharyngeal erythema. No thyromegaly. CARDIOVASCULAR: S1 and S2 muffled PULMONARY: Chest is clear to auscultation, no wheezing or crackles. ABDOMEN: Soft, obese, left upper quadrant abdominal tenderness on deep palpation, non-distended, normoactive bowel sounds. No palpable organomegaly. MUSCULOSKELETAL: No joint swelling or deformity. EXTREMITIES: No cyanosis, clubbing, or pedal edema. NEUROLOGICAL: Gross neurological examination did not reveal any focal deficits. SKIN: No rashes. Assessment: -Mental status change; possible TIA -Acute urinary tract infection, present on admission with metabolic toxic encephalopathy also a concern of polysubstance effect patient takes a number of narcotic medications -Lower abdominal pain possibly secondary to urinary tract infection -Enlarged right common iliac lymph node; could be reactive -Left adrenal mass; slight increase in size compared to last computed tomography scan completed in 2018 -Hypertension -Diabetes mellitus, type II, insulin-dependent uncontrolled with hyperglycemia -Chronic back pain -GI prophylaxis -DVT prophylaxis -Full code Plan: Recommend patient to continue with current medications and management. Neurology and infectious disease following an neurology has ordered up a 2-D echo which is currently pending. Patient had repeat CT done yesterday showing no acute process and there is some sinus fullness and patient is continued on Flonase Patient continued on ceftriaxone with concerns of urinary tract infection and altered mentation on admission and repeat urinalysis is negative and patient will continue on a short course of Ceftin per infectious disease Recommend limiting narcotic use and will discontinue Dilaudid as patient had a brief episode of amnesia and neurology with concerns of possible TIA symptoms have resolved. Recommend monitoring and awaiting 2-D echo. Patient was taking aspirin and Plavix previously along with statin therapy and has not been taking and will resume. Recommend follow-up labs in a.m. and probable discharge in 24 hours The impression and plan of care has been dictated by Sarah Avitia, Nurse Practitioner as directed. MD Maryellen I have performed a history and examination and MDM of this patient, discussed the same with the dictator, and agree with the dictator's assessment and plan as written ,documented as a scribe. Based on total visit time, I have performed more than 50% of the visit. Objective - Vital Signs Vital signs: Vital Signs Temp 98.4 F 11/05/22 07:08 Pulse 51 L 11/05/22 07:08 Resp 16 11/05/22 07:08 BP 175/82 11/05/22 07:08 Pulse Ox 96 11/05/22 07:08 FiO2 Intake & Output 11/04/22 11/05/22 11/05/22 18:59 06:59 18:59 Intake Total 1120 Balance 1120 Intake: Intake, IV Titration 240 Amount Sodium Chloride 0.9% 1, 240 000 ml @ 20 mls/hr IV . Q24H [facility] Rx#:[id number] Oral 880 Other: Voiding Method Toilet Toilet # Voids 1 3 - Labs CBC & Chem 7: 11/01/22 07:54 11/01/22 07:54 Labs: Abnormal Lab Results - Last 24 Hours (Table) 11/04/22 11/04/22 11/04/22 Range/Units 11:07 17:05 17:15 POC Glucose (mg/dL) 145 H 138 H (70-110) mg/dL Urine Protein 1+ H (Negative) Urine Glucose (UA) 4+ H (Negative) Urine Mucus Rare H (None) /hpf 11/04/22 Range/Units 20:15 POC Glucose (mg/dL) 201 H (70-110) mg/dL Urine Protein (Negative) Urine Glucose (UA) (Negative) Urine Mucus (None) /hpf
[2022-11-05 20:46] LABS: Glucose,Whole Blood 102 mg/dL (70-110)
[2022-11-05] MEDS: GABAPENTIN 100 MG CAP PO SCH (21:35)
[2022-11-05] MEDS: BACLOFEN 10 MG TAB PO PRN (21:37)
[2022-11-06 02:19] VITALS: RESP 16
[2022-11-06] MEDS: hydrALAZINE HCL 20 MG/ML 1 ML VIAL IVP PRN (02:44)
[2022-11-06 05:56] LABS: Basophils % (A) 1 %; Eosinophils # (A) 0.1 k/uL (0-0.7); Eosinophils % (A) 2 %; HCT 41.7 % (34.0-46.0); HGB 12.7 gm/dL (11.4-16.0); Hypochromasia Slight; Lymphocytes # (A) 2.7 k/uL (1.0-4.8); Lymphocytes % (A) 40 %; MCH 25.9 pg (25.0-35.0); MCHC 30.4 g/dL (31.0-37.0); Mean Platelet Volume 7.7; Monocytes # (A) 0.5 k/uL (0-1.0); Monocytes % (A) 7 %; Neutrophils # (A) 3.1 k/uL (1.3-7.7); Neutrophils % (A) 46 %; Platelet Count 299 k/uL (150-450); RDW 14.6 % (11.5-15.5); WBC 6.7 k/uL (3.8-10.6)
[2022-11-06 06:05] LABS: African American GFR (CKD) >90 (>60 ml/min/1.73 sqM); Anion Gap 4 mmol/L; Blood Urea Nitrogen 14 mg/dL (7-17); Calcium 8.8 mg/dL (8.4-10.2); Carbon Dioxide 29 mmol/L (22-30); Chloride 106 mmol/L (98-107); Glucose 103 mg/dL (74-99); Magnesium 2.2 mg/dL (1.6-2.3); Non-African American GFR(CKD) >90 (>60 ml/min/1.73 sqM); Sodium 139 mmol/L (137-145)
[2022-11-06 07:36] LABS: Glucose,Whole Blood 117 mg/dL (70-110)
[2022-11-06 07:44] VITALS: TEMP 97.6
[2022-11-06] MEDS: TRELEGY ELLIPTA 100 MCG INHALATION SCH (08:16)
[2022-11-06] MEDS: DULoxetine HCL 30 MG CAPSULE.DR PO SCH (08:32)
[2022-11-06] MEDS: FOLIC ACID 1 MG TAB PO SCH (08:32)
[2022-11-06] MEDS: GABAPENTIN 100 MG CAP PO SCH ×2 (08:38→15:54)
[2022-11-06] MEDS: lisinopriL 20 MG TAB PO SCH (08:38)
[2022-11-06] MEDS: polyethylene glycoL 3350 17 GM POWD.PACK PO SCH (08:38)
[2022-11-06] MEDS: amLODIPine 5 MG TAB PO SCH (08:39)
[2022-11-06] MEDS: DAPAGLIFLOZIN PROPANEDIOL 5 MG TABLET PO SCH (08:39)
[2022-11-06] MEDS: ASPIRIN 325 MG TAB PO SCH (08:39)
[2022-11-06] MEDS: FUROSEMIDE 40 MG TAB PO SCH (08:39)
[2022-11-06] MEDS: DOCUSATE 100 MG CAP PO SCH (08:39)
[2022-11-06] MEDS: busPIRone HCl 5 MG TAB PO SCH (08:40)
[2022-11-06] MEDS: NYSTATIN 100,000 UNIT/GM POWD 15 GM TOPICAL SCH (08:40)
[2022-11-06] MEDS: FLUTICASONE 50MCG/SPRAY NASAL 16GM EA NOSTRIL SCH (08:40)
[2022-11-06] MEDS ORDERED: CYANOCOBALAMIN 500 MCG TAB PO SCH (09:00)
[2022-11-06 09:06] VITALS: BMI 44.6
[2022-11-06] MEDS ORDERED: amLODIPine 5 MG TAB PO STA (09:37)
--- NOTE | 2022-11-06 11:21 | P.PN ---
Subjective Progress Note Date: 11/05/22 Patient was seen for a follow-up. Patient had an episode yesterday started at around 6 or 7 PM, in which she suddenly became very confused and lost memory. She did not know any body, tried to make phone call and did not know anyone in the phone list, although she states that the numbers are all family members that she knows very well. The symptoms lasted for about 3-4 hours, started clearing by 9:30 to 10 PM. By 11 PM she was back to baseline. She also had some confusion, headache dizziness with it. At present she feels fine. Patient says that this has happened before in the past when she was in [facility]. She was with her grandson in a grocery store, and she couldn't find her ventricle, until her grandson found her. On review of records, it appears that patient has been taking aspirin 325 mg daily at home, but patient's grandson who is a caregiver, did not provide complete list of her home medications. Therefore she was not receiving her aspirin, Lipitor or Celexa. Objective - Vital Signs Vital signs: Vital Signs Temp 97.6 F 11/05/22 11:25 Pulse 50 L 11/05/22 11:25 Resp 18 11/05/22 11:25 BP 172/77 11/05/22 11:25 Pulse Ox 96 11/05/22 11:25 FiO2 Intake & Output 11/04/22 11/05/22 11/05/22 18:59 06:59 18:59 Intake Total 1120 Balance 1120 Intake: Intake, IV Titration 240 Amount Sodium Chloride 0.9% 1, 240 000 ml @ 20 mls/hr IV . Q24H [facility] Rx#:[id number] Oral 880 Other: Voiding Method Toilet Toilet Toilet # Voids 1 3 - Exam Patient's mental status, speech and language functions are normal. Patient is fully oriented 4. Patient can name and repeat very well. No aphasia or dysarthria. Cranial nerves are normal. Muscle strength is normal with no pronator drift. She has slight left deltoid weakness and left hip flexion of 5-. Deep tendon reflexes are hypoactive and plantars are flat bilaterally. Sensory touch is equal with no neglect. No ataxia. - Labs CBC & Chem 7: 11/06/22 05:19 11/06/22 05:19 Labs: Abnormal Lab Results - Last 24 Hours (Table) 11/04/22 11/04/22 11/04/22 Range/Units 17:05 17:15 20:15 POC Glucose (mg/dL) 138 H 201 H (70-110) mg/dL Urine Protein 1+ H (Negative) Urine Glucose (UA) 4+ H (Negative) Urine Mucus Rare H (None) /hpf Assessment and Plan Assessment: * Transient global amnesia. Symptoms resolved in 3-4 hours. * Probable mild delirium from ?UTI * Vitamin B12 and folate deficiency. History of vitamin D deficiency. * History of possible TIA/CVA * Reported history of MS, currently not on any disease modifying agent * Diabetes * Hypertension * Obesity Plan: * Carotid Doppler revealed less than 50% stenosis of bilateral ICA. Antegrade flow in both vertebral arteries. * EEG performed 11/02/2022 was normal awake and drowsy. No epileptiform activity was seen. * Check 2-D echo rule out embolic source. * Resume aspirin 325 mg daily. Patient currently on atorvastatin, but she does not know the dose. It was recommended to obtain the information of dose of Lipitor that she takes at home and resume it. * B12 233, methylmalonic acid 0.83, both abnormal. Patient has received vitamin B12 injection 1000 g IM for 3 days. We will now start vitamin B12 1000 g orally daily. Patient may still need monthly B12 injections. * Folic acid 5.50 which is also borderline. Patient on folic acid 1 mg daily. * Vitamin B1 64 which is normal. * Hemoglobin A1c 5.4 * Lipid panel with cholesterol 181, LDL 88, HDL 62 and triglycerides 154. Resume Lipitor that she has been taking at home. * ID on board for rule out UTI. Patient currently on ceftriaxone 2 g every 24 hours. * Recommend complete tobacco cessation. * Recommend patient follow up with neurologist as an outpatient. * Neurologically clear for discharge, and the 2-D echo comes back normal. Discussed with nursing staff and primary team.
[2022-11-06 11:52] LABS: Glucose,Whole Blood 110 mg/dL (70-110)
--- NOTE | 2022-11-06 12:37 | CA ---
Transthoracic Echo Report Name: Jenny Simmons Age: 57 Gender: F : 1965 Exam Date: 11/06/2022 11:32 Exam Location: [place] [facility] Ht (in): 71 Wt (lb): 320 Ordering Physician: Sarah Avitia Attending/Referring Phys: Sled Maker Danielle Swift [facility] Procedure CPT: Indications: Transient global amnesia Cardiac Hx: Technical Quality: Fair Contrast 1: Total Dose (mL): Contrast 2: Total Dose (mL): MEASUREMENTS (Male / Female) Normal Values 2D ECHO LV Diastolic Diameter PLAX 5.7 cm 4.2 - 5.9 / 3.9 - 5.3 cm LV Systolic Diameter PLAX 3.8 cm IVS Diastolic Thickness 1.3 cm 0.6 - 1.0 / 0.6 - 0.9 cm LVPW Diastolic Thickness 1.1 cm 0.6 - 1.0 / 0.6 - 0.9 cm LV Relative Wall Thickness 0.4 RV Internal Dim ED PLAX 3.8 cm DOPPLER AV Peak Velocity 181.8 cm/s AV Peak Gradient 13.2 mmHg AV Mean Velocity 128.8 cm/s AV Mean Gradient 7.6 mmHg AV Velocity Time Integral 38.6 cm LVOT Peak Velocity 109.6 cm/s LVOT Peak Gradient 4.8 mmHg LVOT Velocity Time Integral 33.0 cm Mitral E Point Velocity 74.6 cm/s Mitral A Point Velocity 116.8 cm/s Mitral E to A Ratio 0.6 MV Deceleration Time 248.1 ms LV E' Lateral Velocity 5.4 cm/s Mitral E to LV E' Lateral Ratio 13.7 LV E' Septal Velocity 5.6 cm/s Mitral E to LV E' Septal Ratio 13.3 Right Atrial Pressure 3.0 mmHg FINDINGS Left Ventricle Mildly increased left ventricular wall thickness. Left ventricular cavity size normal. . Left ventricular ejection fraction is estimated at 55-60%. Right Ventricle Right ventricle not well visualized. Right Atrium Right atrium not well visualized. Left Atrium Normal left atrial size. Mitral Valve Structurally normal mitral valve. No mitral regurgitation. Aortic Valve Aortic valve not well visualized. No aortic valve stenosis or regurgitation. Tricuspid Valve Structurally normal tricuspid valve. No tricuspid regurgitation. Pulmonic Valve Pulmonic valve not well visualized. Pericardium No pericardial effusion. Aorta Normal size aortic root and proximal ascending aorta. CONCLUSIONS Technically difficult study. Normal left ventricle size and systolic function Valvular structures were not well visualized Previewed by: Dr. Daily Goodman MD (Electronically Signed) Final Date: 06 November 2022 12:36
[2022-11-06 13:49] VITALS: BP 133/84; PULSE 62
[2022-11-06 17:06] LABS: Glucose,Whole Blood 128 mg/dL (70-110)
[2022-11-07] MEDS ORDERED: amLODIPine 10 MG TAB PO SCH (09:00)
--- NOTE | 2022-11-08 06:21 | P.DS ---
Providers Date of admission: 10/31/22 17:40 Expected date of discharge: 11/06/22 Attending physician: Fay Velarde Consults: 10/31/22 18:34 Consult Physician Routine Consulting Provider: oNel Kilgore Consult Reason/Comments: amsTIA Do you want consulting provider notified?: Yes 11/01/22 10:02 Consult Physician Routine Consulting Provider: Gino Grove Consult Reason/Comments: uti?? Do you want consulting provider notified?: Yes Primary care physician: Adam Fernandez Hospital Course: Final diagnosis -Mental status change; likely TIA -Acute urinary tract infection, present on admission with metabolic toxic encephalopathy also a concern of polysubstance effect patient takes a number of narcotic medications -Lower abdominal pain possibly secondary to urinary tract infection -Enlarged right common iliac lymph node; could be reactive -Left adrenal mass; slight increase in size compared to last computed tomography scan completed in 2018 -Hypertension -Diabetes mellitus, type II, insulin-dependent uncontrolled with hyperglycemia -Morbid obesity with BMI of 44.6 -Chronic back pain -GI prophylaxis -DVT prophylaxis -Full code Discharge disposition Patient is being discharged in a stable condition with guarded prognosis to home. Patient will follow-up with Royer Cobos in the outpatient setting upon discharge. Patient is to follow-up with pain management as well as neurology outpatient as scheduled. Total time taken is greater than 35 minutes. Hospital course This is a 57-year-old female who was recently admitted for altered mental status and concerns for possible urinary tract infection. Patient being closely monitored and maintained on antibiotics as well as close neurology evaluation with concerns of TIA. Patient also had some burning and discomfort with concerns of yeast infection maintained on nystatin. Patient did have a brief episode of amnesia not remembering who she was who any of her family members were which had resolved and neurology did further studies which were negative and concern for TIA. Patient had been on aspirin in the past and had not been taking and neurology recommends outpatient follow-up with neurology along with continuing aspirin. Patient also with significant chronic pain recommend painter drum. Patient has been cleared by consultations for discharge. Please refer to consultation notes for further HPI. Patient needs tighter blood pressure control medications have been adjusted. Recommend outpatient follow-up with primary care provider this week. Currently no reports of chest pain, shortness of breath, or palpitations. Patient is afebrile. No reports of nausea or vomiting and patient is tolerating diet. Patient will be discharged home today. High risk for readmissions due to noncompliance and comorbidities Physical exam: Gen: This is a 49-year-old female who is awake, alert and oriented 3, well- developed, well-nourished, morbidly obese HEENT: Head is atraumatic, normocephalic. Pupils equal, round. Sclerae is anicteric. NECK: Supple. No JVD. No lymphadenopathy. No thyromegaly. LUNGS: Clear to auscultation. No wheezes or rhonchi. No intercostal retractions. HEART: Regular rate and rhythm. No murmur. ABDOMEN: Soft. Obese. Bowel sounds are present. No masses. No tenderness. EXTREMITIES: No pedal edema. No calf tenderness. NEUROLOGICAL: Patient is awake, alert and oriented x3. Cranial nerves 2 through 12 are grossly intact. Please refer to medication reconciliation sheet for a list of medications. The impression and plan of care has been dictated by Sarah Avitia, Nurse Practitioner as directed. Dr. Rojelio MD I have performed a history and examination and MDM of this patient, discussed the same with the dictator, and agree with the dictator's assessment and plan as written ,documented as a scribe. Based on total visit time, I have performed more than 50% of the visit. Patient Condition at Discharge: Stable Plan - Discharge Summary Discharge Rx Participant: No New Discharge Prescriptions: New Fluticasone Nasal [place] [Flonase Nasal [place]] 2 spray EA NOSTRIL DAILY #7 ml Folic Acid 1 mg PO DAILY #30 tab polyethylene glycoL 3350 [Miralax] 17 gm PO DAILY #30 packet Nystatin 100,000 Unit/gm Powd [Mycostatin Powder] 1 applic TOPICAL BID 7 Days #1 each Gabapentin [Neurontin] 200 mg PO TID #6 cap cefUROXime axetiL [Ceftin] 500 mg PO BID 5 Days #10 tab Aspirin 325 mg PO DAILY 30 Days #30 tab amLODIPine [Norvasc] 10 mg PO DAILY 30 Days #30 tab Docusate [Colace] 100 mg PO BID 15 Days #30 cap Trelegy Ellipta 1 puff INHALATION RT-DAILY Cyanocobalamin [Vitamin B-12] 1,000 mcg PO DAILY #30 tab Continue Albuterol Inhaler [Ventolin Hfa Inhaler] 1 - 2 puff INHALATION RT-Q6H PRN PRN Reason: Shortness Of Breath Estradiol Cream [Estrace Cream 0.01%] 1 gm VAGINAL DIRECTED DULoxetine HCL [Cymbalta] 30 mg PO DAILY Dulaglutide [Trulicity] 1.5 mg SQ TH lisinopriL 40 mg PO DAILY Furosemide [Lasix] 40 mg PO DAILY busPIRone HCL [Buspar] 7.5 mg PO BID Baclofen [Lioresal] 10 mg PO BID PRN PRN Reason: Muscle Spasm Dapagliflozin Propanediol [Farxiga] 5 mg PO DAILY Discharge Medication List Albuterol Inhaler [Ventolin Hfa Inhaler] 1 - 2 puff INHALATION RT-Q6H PRN 03/24/17 [History] Baclofen [Lioresal] 10 mg PO BID PRN 10/31/22 [History] DULoxetine HCL [Cymbalta] 30 mg PO DAILY 10/31/22 [History] Dapagliflozin Propanediol [Farxiga] 5 mg PO DAILY 10/31/22 [History] Dulaglutide [Trulicity] 1.5 mg SQ TH 10/31/22 [History] Estradiol Cream [Estrace Cream 0.01%] 1 gm VAGINAL DIRECTED 10/31/22 [History] Furosemide [Lasix] 40 mg PO DAILY 10/31/22 [History] busPIRone HCL [Buspar] 7.5 mg PO BID 10/31/22 [History] lisinopriL 40 mg PO DAILY 10/31/22 [History] Docusate [Colace] 100 mg PO BID 15 Days #30 cap 11/05/22 [Rx] Fluticasone Nasal [place] [Flonase Nasal [place]] 2 spray EA NOSTRIL DAILY #7 ml 11/05/22 [Rx] Folic Acid 1 mg PO DAILY #30 tab 11/05/22 [Rx] Gabapentin [Neurontin] 200 mg PO TID #6 cap 11/05/22 [Rx] Nystatin 100,000 Unit/gm Powd [Mycostatin Powder] 1 applic TOPICAL BID 7 Days #1 each 11/05/22 [Rx] Trelegy Ellipta 1 puff INHALATION RT-DAILY 11/05/22 [Rx] cefUROXime axetiL [Ceftin] 500 mg PO BID 5 Days #10 tab 11/05/22 [Rx] polyethylene glycoL 3350 [Miralax] 17 gm PO DAILY #30 packet 11/05/22 [Rx] Aspirin 325 mg PO DAILY 30 Days #30 tab 11/06/22 [Rx] Cyanocobalamin [Vitamin B-12] 1,000 mcg PO DAILY #30 tab 11/06/22 [Rx] amLODIPine [Norvasc] 10 mg PO DAILY 30 Days #30 tab 11/06/22 [Rx] Follow up Appointment(s)/Referral(s): Royer Cobos NPC [REFERRING] - 1-2 days (Primary Care Patient need to call to make a follow up appointment.) Arnol Flores MD [STAFF PHYSICIAN] - 1 Week Trinity Campos MD [Medical Doctor] - 1 Week (Neurologist Dr. Campos's office will call patient to make an appointment with patient.) Patient Instructions/Handouts: Cefuroxime (By mouth), Nystatin/Triamcinolone (On the skin), Folic Acid (By mouth), Laxative, Stool Softeners (By mouth), Gabapentin (By mouth), Amlodipine (By mouth), Polyethylene Glycol 3350 (By mouth), Fluticasone (Into the nose), Dehydration (DC), Urinary Tract Infection in Women (DC), Adrenal Pheochromocytoma (DC), Near Syncope (DC) Activity/Diet/Wound Care/Special Instructions: Activity Limited until follow-up Follow-up with primary care provider on discharge Follow-up with pain management outpatient Follow-up neurology outpatient Continue taking medications as prescribed Discharge Disposition: HOME SELF-CARE
== END 2022-11-06 18:45 | disposition home or self-care (01) | DRG 689 ==
LOC: EC 15:56 → 5NMEDONC 17:40
PROVIDERS: ADMIT Hospitalist; ATTEND Hospitalist
DX: N39.0 Urinary tract infection, site not specified (principal); G92.8 Other toxic encephalopathy; Z68.41 Body mass index [BMI] 40.0-44.9, adult; F05 Delirium due to known physiological condition; M79.7 Fibromyalgia; E11.319 Type 2 diabetes mellitus with unspecified diabetic retinopathy without macular edema; E11.40 Type 2 diabetes mellitus with diabetic neuropathy, unspecified; E11.65 Type 2 diabetes mellitus with hyperglycemia; E27.9 Disorder of adrenal gland, unspecified; E53.8 Deficiency of other specified B group vitamins; E66.9 Obesity, unspecified; E86.0 Dehydration; G45.4 Transient global amnesia; I10 Essential (primary) hypertension; J44.9 Chronic obstructive pulmonary disease, unspecified; T40.605A Adverse effect of unspecified narcotics, initial encounter; G89.29 Other chronic pain; M47.9 Spondylosis, unspecified; M17.0 Bilateral primary osteoarthritis of knee; M19.072 Primary osteoarthritis, left ankle and foot; M19.071 Primary osteoarthritis, right ankle and foot; I25.10 Atherosclerotic heart disease of native coronary artery without angina pectoris; G35 Multiple sclerosis; I25.2 Old myocardial infarction; K59.00 Constipation, unspecified; B37.2 Candidiasis of skin and nail; R29.810 Facial weakness; Z79.4 Long term (current) use of insulin; Z79.82 Long term (current) use of aspirin; Z79.84 Long term (current) use of oral hypoglycemic drugs; Z79.899 Other long term (current) drug therapy; Z82.49 Family history of ischemic heart disease and other diseases of the circulatory system; Z83.3 Family history of diabetes mellitus; Z86.73 Personal history of transient ischemic attack (TIA), and cerebral infarction without residual deficits; Z87.440 Personal history of urinary (tract) infections; Z71.6 Tobacco abuse counseling; F17.210 Nicotine dependence, cigarettes, uncomplicated; Z71.3 Dietary counseling and surveillance; Z91.81 History of falling; Z88.6 Allergy status to analgesic agent; Z88.5 Allergy status to narcotic agent; Z88.0 Allergy status to penicillin; Z28.21 Immunization not carried out because of patient refusal
CPT/HCPCS: 70450; 74177; 80048; 80053; 80061; 81001; 82533; 82607; 82746; 83036; 83605; 83735; 83921; 84100; 84425; 84443; 84484; 85025; 85610; 85730; 93005; 93306; 93880; 94640; 94760; 95819

== ENCOUNTER 2024-03-20 01:57 | Inpatient (IN) | payer MEDICARE ==
--- NOTE | 2024-03-20 02:39 | ED ---
General Adult HPI - General Chief complaint: Chest Pain Stated complaint: Chest Pain Time Seen by Provider: 03/20/24 01:59 Source: patient, EMS Mode of arrival: EMS Limitations: no limitations - History of Present Illness Initial comments: Patient is a 59-year-old female with past medical history of COPD, abdominal aortic aneurysm, CAD, fibromyalgia presenting today for chest pressure. Patient states that she was laying bed this evening and began experiencing pressure across the front of her chest with associated shortness of breath. She took a few breaths from her inhaler but her and her shortness of breath improved but her pain continued. She called 911 and while getting into the ambulance she also noted left arm pain. She is given 1 sublingual nitroglycerin and Toradol and her pain did improve somewhat but she still rates it as a 3 out of 10. Also endorses sharp left lower chest/left upper quadrant pain that is occurring with her chest pressure. Denies nausea, vomiting, cough, hemoptysis, fevers, chills, new numbness or weakness in her extremities, abdominal pain, diarrhea, hematochezia or melena. - Related Data Home Medications Medication Instructions Recorded Confirmed Albuterol Inhaler [Ventolin Hfa 1 - 2 puff INHALATION RT-Q6H PRN 03/24/17 03/20/24 Inhaler] Furosemide [Lasix] 40 mg PO DAILY 10/31/22 03/20/24 lisinopriL 40 mg PO DAILY 10/31/22 03/20/24 Baclofen 10 mg PO BID PRN 03/20/24 03/20/24 Budesonide/Formoterol Fumarate 2 puff INHALATION RT-BID 03/20/24 03/20/24 [Symbicort 80-4.5 Mcg Inhaler] DULoxetine HCL [Cymbalta] 60 mg PO DAILY 03/20/24 03/20/24 Fluticasone Nasal [place] [Flonase 2 spray EA NOSTRIL BID PRN 03/20/24 03/20/24 Nasal [place]] Fluticasone/Umeclidin/Vilanter 1 puff INHALATION RT-DAILY 03/20/24 03/20/24 [Trelegy Ellipta 100-62.5-25] Gabapentin [Neurontin] 400 mg PO TID 03/20/24 03/20/24 Magnesium Oxide [Mag-Ox] 400 mg PO DAILY 03/20/24 03/20/24 Naproxen [Naprosyn] 500 mg PO BID 03/20/24 03/20/24 Nitroglycerin Sl Tabs [Nitrostat] 0.4 mg SUBLINGUAL Q5M PRN 03/20/24 03/20/24 carvediloL [Coreg] 12.5 mg PO BID 03/20/24 03/20/24 hydroCHLOROthiazide [Hydrodiuril] 50 mg PO DAILY 03/20/24 03/20/24 Previous Rx's Medication Instructions Recorded Aspirin 81 mg PO DAILY #30 tab 03/24/24 Atorvastatin [Lipitor] 40 mg PO HS #30 tab 03/24/24 Allergies Allergy/AdvReac Type Severity Reaction Status Date / Time codeine Allergy Dyspnea Verified 03/20/24 07:48 livier Allergy Anaphylaxis Verified 03/21/24 14:51 Melon Allergy Anaphylaxis Verified 03/20/24 07:48 morphine Allergy Rash/Hives Verified 03/20/24 07:48 Penicillins Allergy Dyspnea Verified 03/20/24 07:48 alprazolam [From Xanax] AdvReac See comment Verified 03/20/24 07:48 Review of Systems ROS Statement: Those systems with pertinent positive or pertinent negative responses have been documented in the HPI. ROS Other: All systems not noted in ROS Statement are negative. Past Medical History Past Medical History: Asthma, Coronary Artery Disease (CAD), Chest Pain / A ngina, COPD, Diabetes Mellitus, Fibromyalgia, Hypertension, Myocardial Infarction (MS), Sleep Apnea/CPAP/BIPAP Additional Past Medical History / Comment(s): MS, neuropathy, arthritis in back, knees, ankles, feet. VERTIGO. fibromyalgia, sleep apnea with cpap use, abd aneurysm Last Myocardial Infarction Date:: 2004 History of Any Multi-Drug Resistant Organisms: None Reported Past Surgical History: Appendectomy, Cholecystectomy, Hysterectomy, Pacemaker, Tonsillectomy Additional Past Surgical History / Comment(s): Bladder SUSPENSION. LEFT carpal tunnel. Cyst removed from left middle finger Past Anesthesia/Blood Transfusion Reactions: Previous Problems w/ Anesthesia, Motion Sickness Additional Past Anesthesia/Blood Transfusion Reaction / Comment(s): HAS BEEN COMBATIVE POST GENERAL ANESTHESIA Type of Cardiac Device: Permanent Pacemaker Device Placement Date:: 2017 Past Psychological History: Depression Smoking Status: Current every day smoker Past Alcohol Use History: Occasional Past Drug Use History: Marijuana - Past Family History Mother Family Medical History: Diabetes Mellitus Additional Family Medical History / Comment(s): heart problems Father Family Medical History: Diabetes Mellitus Additional Family Medical History / Comment(s): heart problems General Exam - General Exam Comments Initial Comments: PE: CONSTITUTIONAL: No apparent distress, chronically ill-appearing SKIN: Warm, dry, no jaundice, hives or petechiae EYES: Pupils are equally round, extraocular movements intact without nystagmus, clear conjunctiva, non-icteric sclera HENT: Normocephalic, atraumatic, moist mucus membranes, oropharynx clear without exudates NECK: , Full range of motion, normal appearance PULMONARY: Scant rhonchi in the left lower and midlung, no wheezes, no rales, normal excursion, no accessory muscle use or stridor CARDIOVASCULAR: Bradycardia, regular rhythm normal S1 and S2. No appreciated murmurs, rubs or gallops. Strong radial pulses with intact distal perfusion. No lower extremity edema GASTROINTESTINAL: Soft, active bowel sounds throughout, tenderness to palpation of the left upper quadrant, non-distended, no palpable masses, no rebound or guarding. No hepatosplenomegaly MUSCULOSKELETAL: Extremities have no gross deformity, no edema, redness, or swelling. No calf swelling NEUROLOGIC:_a/o x 3, GCS 15, normal mentation and speech. Moves all extremities x 4 without motor or sensory deficit PSYCHIATRIC:_normal mood and affect, thought process is clear and linear Limitations: no limitations Course Vital Signs 03/20/24 03/20/24 03/20/24 01:58 02:32 04:00 Temperature 97.8 F Pulse Rate 50 L 50 L 50 L Respiratory 18 18 18 Rate Blood Pressure 118/70 110/63 119/89 O2 Sat by Pulse 93 L 94 L 95 Oximetry 03/20/24 03/20/24 03/20/24 06:13 09:00 09:05 Temperature Pulse Rate 50 L 50 L Respiratory 18 18 Rate Blood Pressure 147/84 136/73 O2 Sat by Pulse 92 L 84 L 95 Oximetry 03/20/24 03/20/24 12:11 16:52 Temperature Pulse Rate 53 L 50 L Respiratory 20 20 Rate Blood Pressure 149/90 150/87 O2 Sat by Pulse 100 99 Oximetry EKG Findings - EKG Comments: EKG Findings:: Electronic paced rhythm, rate 50 bpm, GA interval 219 ms, QRS duration 105 ms, QT/QTc 46/458 ms, left axis deviation, compared to EKG performed on 03/29/2017, compared to prior EKG appears to be [address] elevation in V1 and T waves appear slightly more inverted in V2 and V3 otherwise no significant changes from prior repeat EKG was obtained to ensure no dynamic changes, performed at 3:39 AM, again shows atrial paced rhythm, rate 50 bpm, GA interval 220 ms, QRS duration 110 ms, QT/QTc 472/444 ms, left axis deviation, no new or worsening ST elevations or depressions when compared to EKG performed on arrival Medical Decision Making - Medical Decision Making Was pt. sent in by a medical professional or institution (, PA, [facility], urgent care, hospital, or half-way...) When possible be specific @ -No Did you speak to anyone other than the patient for history (EMS, parent, family, police, friend...)? What history was obtained from this source @ -No Did you review nursing and triage notes (agree or disagree)? Why? @ -I reviewed and agree with nursing and triage notes Were old charts reviewed (outside hosp., previous admission, EMS record, old EKG, old radiological studies, urgent care reports/EKG's, half-way records)? Report findings @Medical records reviewed Differential Diagnosis (chest pain, altered mental status, abdominal pain women, abdominal pain men, vaginal bleeding, weakness, fever, dyspnea, syncope, headache, dizziness, GI bleed, back pain, seizure, CVA, palpatations, mental health, musculoskeletal)? @Differential Chest Pain: Stable Angina, Unstable Angina, STEMI, NSTEMI Aortic Dissection, pericarditis, pleurisy, chostochondirits, Pneumothorax, Musculoskeletal, Esophageal Spasm GERD, Cholecystitis, Pancreatitis, Zoster, this is not meant to be an all- inclusive list. EKG interpreted by me (3pts min.). @ -As above X-rays interpreted by me (1pt min.). @ No pleural effusions or pneumothorax CT interpreted by me (1pt min.). @ -Reviewed CT scan, I see no evidence of aortic dissection or ruptured aortic aneurysm U/S interpreted by me (1pt. min.). @ -None done What testing was considered but not performed or refused? (CT, X-rays, U/S, labs)? Why? @ -None What meds were considered but not given or refused? Why? @ -None Did you discuss the management of the patient with other professionals (professionals i.e. , PA, [facility], lab, RT, psych nurse, hospice social worker, english drawer, teacher, cavalry officer, caser shoe parts)? Give summary @ -No Was smoking cessation discussed for >3mins.? @ -No Was critical care preformed (if so, how long)? @ -No Were there social determinants of health that impacted care today? How? (Homelessness, low income, unemployed, alcoholism, drug addiction, transportation, low edu. Level, literacy, decrease access to med. care, detention, rehab)? @ -No Was there de-escalation of care discussed even if they declined (Discuss DNR or withdrawal of care, Hospice)? @ -No What co-morbidities impacted this encounter? (DM, HTN, Smoking, COPD, CAD, Cancer, CVA, ARF, Chemo, Hep., AIDS, mental health diagnosis, sleep apnea, morbid obesity)? @ -COPD, CAD, AAA Was patient admitted / discharged? Hospital course, mention meds given and route, prescriptions, significant lab abnormalities, going to OR and other pertinent info. @ -Hospital course Patient is a pleasant 59-year-old female past medical history of CAD, fibromyalgia, COPD, abdominal aortic aneurysm presenting for chest pressure and shortness of breath. Shortness of breath has since resolved and pain improved prior to arrival. Currently rates pain as 3 out of 10. Improved with sublingual glycerin. Platelet declines narcotics including morphine or fentanyl. Is agreeable with Tylenol. Will attempt additional slowly nitroglycerin to improve pain further. Discussed with patient plan for CT to assess her abdominal aneurysm given chest pain and abdominal pain in addition to comprehensive labs. Anticipate admission due to patient's chest pain and risk factors. Agreeable with plan. Labs and imaging reviewed. Grossly within normal limits. Abnormal values not concerning for acute pathology related to presenting complaint. Pt's chest pain improved. Case discussed with Dr. Broussard. Admission for chest pain with elevated Heart Score. Dr. Broussard kindly accepts for admission. Pt admitted in stable condition. Undiagnosed new problem with uncertain prognosis? @ -No Drug Therapy requiring intensive monitoring for toxicity (Heparin, Nitro, Insulin, Cardizem)? @ -No Were any procedures done? @ -No Diagnosis/symptom? @ -Chest pain Acute, or Chronic, or Acute on Chronic? @Acute Uncomplicated (without systemic symptoms) or Complicated (systemic symptoms)? @ complicated Side effects of treatment? @ -No Exacerbation, Progression, or Severe Exacerbation? @ -No Poses a threat to life or bodily function? How? (Chest pain, USA, MS, pneumonia, PE, COPD, DKA, ARF, appy, cholecystitis, CVA, Diverticulitis, Homicidal, Suicidal, threat to staff... and all critical care pts) @ yes - Lab Data Result diagrams: 03/20/24 02:40 03/24/24 05:49 Lab Results 03/20/24 03/20/24 03/20/24 Range/Units 02:40 02:40 02:40 WBC 9.5 (3.8-10.6) k/uL RBC 5.26 (3.80-5.40) m/uL Hgb 15.4 (11.4-16.0) gm/dL Hct 46.3 H (34.0-46.0) % MCV 88.0 (80.0-100.0) fL MCH 29.2 (25.0-35.0) pg MCHC 33.2 (31.0-37.0) g/dL RDW 13.4 (11.5-15.5) % Plt Count 320 (150-450) k/uL MPV 8.4 Neutrophils % 59 % Lymphocytes % 32 % Monocytes % 6 % Eosinophils % 1 % Basophils % 1 % Neutrophils # 5.6 (1.3-7.7) k/uL Lymphocytes # 3.0 (1.0-4.8) k/uL Monocytes # 0.5 (0-1.0) k/uL Eosinophils # 0.1 (0-0.7) k/uL Basophils # 0.1 (0-0.2) k/uL PT 11.0 (10.0-12.5) sec INR 1.0 (<1.2) APTT 23.3 (22.0-30.0) sec Sodium 141 (137-145) mmol/L Potassium 3.5 (3.5-5.1) mmol/L Chloride 107 (98-107) mmol/L Carbon Dioxide 25 (22-30) mmol/L Anion Gap 9 mmol/L BUN 29 H (7-17) mg/dL Creatinine 1.08 H (0.52-1.04) mg/dL Est GFR (CKD-EPI)AfAm 65 (>60 ml/min/1.73 sqM) Est GFR (CKD-EPI)NonAf 56 (>60 ml/min/1.73 sqM) Glucose 123 H (74-99) mg/dL Calcium 9.6 (8.4-10.2) mg/dL Magnesium 1.8 (1.6-2.3) mg/dL Total Bilirubin 1.2 (0.2-1.3) mg/dL AST 26 (14-36) U/L ALT 18 (4-34) U/L Alkaline Phosphatase 97 (38-126) U/L Troponin I (0.000-0.034) ng/mL NT-Pro-B Natriuret Pep 242 pg/mL Total Protein 7.2 (6.3-8.2) g/dL Albumin 4.3 (3.5-5.0) g/dL Amylase 50 (30-110) U/L Lipase 141 (23-300) U/L Urine Color Urine Appearance (Clear) Urine pH (5.0-8.0) Ur Specific [place] (1.001-1.035) Urine Protein (Negative) Urine Glucose (UA) (Negative) Urine Ketones (Negative) Urine Blood (Negative) Urine Nitrite (Negative) Urine Bilirubin (Negative) Urine Urobilinogen (<2.0) mg/dL Ur Leukocyte Esterase (Negative) Urine RBC (0-5) /hpf Urine WBC (0-5) /hpf Ur Squamous Epith Cells (0-4) /hpf Hyaline Casts (0-2) /lpf Urine Mucus (None) /hpf 03/20/24 03/20/24 Range/Units 02:40 04:21 WBC (3.8-10.6) k/uL RBC (3.80-5.40) m/uL Hgb (11.4-16.0) gm/dL Hct (34.0-46.0) % MCV (80.0-100.0) fL MCH (25.0-35.0) pg MCHC (31.0-37.0) g/dL RDW (11.5-15.5) % Plt Count (150-450) k/uL MPV Neutrophils % % Lymphocytes % % Monocytes % % Eosinophils % % Basophils % % Neutrophils # (1.3-7.7) k/uL Lymphocytes # (1.0-4.8) k/uL Monocytes # (0-1.0) k/uL Eosinophils # (0-0.7) k/uL Basophils # (0-0.2) k/uL PT (10.0-12.5) sec INR (<1.2) APTT (22.0-30.0) sec Sodium (137-145) mmol/L Potassium (3.5-5.1) mmol/L Chloride (98-107) mmol/L Carbon Dioxide (22-30) mmol/L Anion Gap mmol/L BUN (7-17) mg/dL Creatinine (0.52-1.04) mg/dL Est GFR (CKD-EPI)AfAm (>60 ml/min/1.73 sqM) Est GFR (CKD-EPI)NonAf (>60 ml/min/1.73 sqM) Glucose (74-99) mg/dL Calcium (8.4-10.2) mg/dL Magnesium (1.6-2.3) mg/dL Total Bilirubin (0.2-1.3) mg/dL AST (14-36) U/L ALT (4-34) U/L Alkaline Phosphatase (38-126) U/L Troponin I <0.012 (0.000-0.034) ng/mL NT-Pro-B Natriuret Pep pg/mL Total Protein (6.3-8.2) g/dL Albumin (3.5-5.0) g/dL Amylase (30-110) U/L Lipase (23-300) U/L Urine Color Yellow Urine Appearance Clear (Clear) Urine pH 5.0 (5.0-8.0) Ur Specific [place] 1.026 (1.001-1.035) Urine Protein Negative (Negative) Urine Glucose (UA) Negative (Negative) Urine Ketones Negative (Negative) Urine Blood Negative (Negative) Urine Nitrite Negative (Negative) Urine Bilirubin Negative (Negative) Urine Urobilinogen <2.0 (<2.0) mg/dL Ur Leukocyte Esterase Small H (Negative) Urine RBC 1 (0-5) /hpf Urine WBC 2 (0-5) /hpf Ur Squamous Epith Cells 2 (0-4) /hpf Hyaline Casts 17 H (0-2) /lpf Urine Mucus Rare H (None) /hpf Disposition Clinical Impression: Chest pain Disposition: ADMITTED IP TO THIS HOSP Condition: Stable
[2024-03-20 03:14] LABS: Basophils # (A) 0.1 k/uL (0-0.2); Basophils % (A) 1 %; Eosinophils # (A) 0.1 k/uL (0-0.7); Eosinophils % (A) 1 %; HCT 46.3 % (34.0-46.0); HGB 15.4 gm/dL (11.4-16.0); Lymphocytes % (A) 32 %; MCH 29.2 pg (25.0-35.0); MCHC 33.2 g/dL (31.0-37.0); Mean Platelet Volume 8.4; Monocytes # (A) 0.5 k/uL (0-1.0); Monocytes % (A) 6 %; Neutrophils # (A) 5.6 k/uL (1.3-7.7); Neutrophils % (A) 59 %; Platelet Count 320 k/uL (150-450); RBC 5.26 m/uL (3.80-5.40); RDW 13.4 % (11.5-15.5); WBC 9.5 k/uL (3.8-10.6)
[2024-03-20] MEDS: ACETAMINOPHEN TAB 500 MG TAB PO STA (03:15)
[2024-03-20 03:17] LABS: ALT 18 U/L (4-34); AST 26 U/L (14-36); African American GFR (CKD) 65 (>60 ml/min/1.73 sqM); Albumin 4.3 g/dL (3.5-5.0); Alkaline Phosphatase 97 U/L (38-126); Amylase 50 U/L (30-110); Anion Gap 9 mmol/L; Blood Urea Nitrogen 29 mg/dL (7-17); Calcium 9.6 mg/dL (8.4-10.2); Carbon Dioxide 25 mmol/L (22-30); Chloride 107 mmol/L (98-107); Glucose 123 mg/dL (74-99); Lipase 141 U/L (23-300); Magnesium 1.8 mg/dL (1.6-2.3); Non-African American GFR(CKD) 56 (>60 ml/min/1.73 sqM); Potassium 3.5 mmol/L (3.5-5.1); Sodium 141 mmol/L (137-145); Total Bilirubin 1.2 mg/dL (0.2-1.3); Total Protein 7.2 g/dL (6.3-8.2)
[2024-03-20] MEDS: NITROGLYCERIN SL TABS 0.4 MG TAB SUBLINGUAL STA (03:17)
[2024-03-20] MEDS: SODIUM CHLORIDE 0.9% 500 ML 500 ML IV STA (03:19)
[2024-03-20] MEDS: ASPIRIN 81 MG PO STA (03:19)
[2024-03-20 03:30] LABS: Partial Thromboplastin Time 23.3 sec (22.0-30.0)
[2024-03-20 03:40] LABS: NT-Pro-B-Type Natriuretic Pept 242 pg/mL
--- NOTE | 2024-03-20 03:46 | CT ---
EXAM: CT Angiography Chest Without and With Intravenous Contrast CLINICAL HISTORY: chest pain, L abdominal pain, hx AAA TECHNIQUE: Axial computed tomographic angiography images of the chest without and with intravenous contrast using aortic dissection protocol. CTDI is 63. 79 mGy and DLP is 1443.6 mGy-cm. This CT exam was performed using one or more of the following dose reduction techniques: automated exposure control, adjustment of the mA and/or kV according to patient size, and/or use of iterative reconstruction technique. MIP reconstructed images were created and reviewed. COMPARISON: CT chest with contrast dated 10/24/2017 FINDINGS: Aorta: Borderline ectasia of the ascending aorta. No with the mid ascending aorta measuring 4 x 3.8 cm from 3.8 x 3.8 cm on the previous examination. The aortic arch and descending aorta are stable and within normal limits in caliber. Mild atherosclerotic calcification. No dissection. No intimal wall abnormality identified on the precontrast imaging. Pulmonary arteries: Suboptimal enhancement of the pulmonary artery tree. No definite large/central pulmonary embolism. Great vessels of aortic arch: There is a bovine configuration branching pattern of the proximal great vessels. No significant ostial stenosis or dissection of the proximal great vessels. Lungs: No lobar consolidation. Scattered ill-defined areas of increased attenuation, predominantly posteriorly in both lungs. Pleural space: Unremarkable. No significant effusion. No pneumothorax. Heart: Cardiomegaly. Prominent coronary artery calcification, progressive from the previous examination. No significant pericardial effusion. Bones/joints: No acute fracture. No dislocation. Soft tissues: No significant abnormality involving the prominent overlying soft tissues. Lymph nodes: There is new borderline lymphadenopathy, now noted in the AP window and pericarinal region with the largest lymph node left laterally, measuring 12 mm in short axis diameter. There are nonspecific left hilar lymph nodes and a borderline lymph node at the thoracic inlet between the proximal left common carotid artery and the left subclavian artery. Tubes, lines and devices: Left subclavian approach dual lead pacer. IMPRESSION: 1. Borderline ectasia of the ascending aorta. No with the mid ascending aorta measuring 4 x 3.8 cm from 3.8 x 3.8 cm on the previous examination. The aortic arch and descending aorta are stable and within normal limits in caliber. Mild atherosclerotic calcification. No dissection. No intimal wall abnormality identified on the precontrast imaging. 2. No lobar consolidation. Scattered ill-defined areas of increased attenuation, predominantly posteriorly in both lungs. Favor dependent subsegmental atelectasis over infection. EXAM: CT Angiography Abdomen and Pelvis Without and With Intravenous Contrast CLINICAL HISTORY: chest pain, L abdominal pain, hx AAA TECHNIQUE: Axial computed tomographic angiography images of the abdomen and pelvis without and with intravenous contrast. CTDI is 63.79 mGy and DLP is 1813. 7 mGy-cm. This CT exam was performed using one or more of the following dose reduction techniques: automated exposure control, adjustment of the mA and/or kV according to patient size, and/or use of iterative reconstruction technique. MIP reconstructed images were created and reviewed. COMPARISON: CT abdomen and pelvis with contrast dated 11/01/2022 FINDINGS: VASCULATURE: Aorta: The suprarenal aorta is within normal limits, measuring 2.5 x 2. 7 cm. The previously noted infrarenal fusiform abdominal aortic aneurysm is mildly increased in size, now measuring 3.2 x 3.6 cm from 2.9 x 3.5 cm previously. No dissection, stenosis or significant acute periaortic abnormality. No intimal wall abnormality noted on precontrast imaging. Celiac trunk and mesenteric arteries: No acute findings. No occlusion or significant stenosis. Renal arteries: No acute findings. No occlusion or significant stenosis. Iliac arteries: Ectasia of the mid to distal right common iliac artery, stable, measuring 16 mm. Ectasia of the distal left common iliac artery, measuring 15 mm, stable. No occlusion or significant stenosis. Lung bases: For findings regarding the lung bases, please see the CT report of the chest performed concurrently. No consolidation. ABDOMEN: Liver: The liver demonstrates slightly lobular contours anteriorly, stable from the previous examination. Gallbladder and bile ducts: Cholecystectomy. No ductal dilation. Pancreas: Unremarkable. No ductal dilation. No mass. Spleen: Unremarkable. No splenomegaly. Adrenals: The left adrenal mass is again noted, measuring 5.3 x 4.5 cm from 5.8 x 5 cm previously. The left adrenal mass remains somewhat heterogeneous but demonstrates normal internal density without new probably enhancing components. The right adrenal gland is unremarkable. Kidneys and ureters: Unremarkable. No obstructing stones. No hydronephrosis. No solid mass. Stomach and bowel: The stomach is predominantly decompressed without gastric mucosal thickening. No evidence for bowel obstruction. Mucosal prominence of small bowel loops in the left hemipelvis is new from the previous examination. Mild stool burden. PELVIS: Appendix: Status post appendectomy. Bladder: Unremarkable. No stones. No mass. Reproductive: Status post hysterectomy. ABDOMEN and PELVIS: Intraperitoneal space: Unremarkable. No significant fluid collection. No free air. Bones/joints: No acute fracture. No dislocation. Soft tissues: Unremarkable. Lymph nodes: Similar periportal and portal caval lymphadenopathy. The largest lymph node in the periportal region. Cranial to the pancreatic neck measures 2.7 cm, stable from the previous exam. Similar periaortic lymph nodes, now mildly enlarged and increased in size from the previous examination. The largest left periaortic lymph node measures 13 mm in short axis diameter. Nonspecific bilateral pelvic lymph nodes along the vasculature, also slightly more prominent. IMPRESSION: 1. The suprarenal aorta is within normal limits, measuring 2.5 x 2.7 cm. The previously noted infrarenal fusiform abdominal aortic aneurysm is mildly increased in size, now measuring 3.2 x 3.6 cm from 2.9 x 3.5 cm previously. No dissection, stenosis or significant acute periaortic abnormality. No intimal wall abnormality noted on precontrast imaging. 2. No evidence for bowel obstruction. Mucosal prominence of small bowel loops in the left hemipelvis is new from the previous examination. This suggests enteritis. 3. The left adrenal mass is again noted, measuring 5.3 x 4.5 cm from 5.8 x 5 cm previously. The left adrenal mass remains somewhat heterogeneous but demonstrates normal internal density without new probably enhancing components. 4. Similar periportal and portal caval lymphadenopathy. The largest lymph node in the periportal region. Cranial to the pancreatic neck measures 2.7 cm, stable from the previous exam. Similar periaortic lymph nodes, now mildly enlarged and increased in size from the previous examination. The largest left periaortic lymph node measures 13 mm in short axis diameter. Nonspecific bilateral pelvic lymph nodes along the vasculature, also slightly more prominent. Differential consideration includes metastatic disease, lymphoma or lymphoproliferative process.
--- NOTE | 2024-03-20 03:47 | XR ---
EXAM: XR Chest, 2 Views CLINICAL HISTORY: ITS.REASON XR Reason: Chest Pain TECHNIQUE: Frontal and lateral views of the chest. COMPARISON: No relevant prior studies available. FINDINGS: Lungs: Subsegmental changes in the right infrahilar region. The lungs are otherwise clear. The pulmonary vasculature demonstrates no significant radiographic abnormality. Pleural space: Unremarkable. No pneumothorax. No large pleural effusion. Heart: Cardiomegaly, stable. Mediastinum: Unremarkable. No significant abnormality identified. The trachea is midline. Bones/joints: Unremarkable. No acute fracture. Tubes, lines and devices: Left subclavian dual lead pacer. IMPRESSION: Subsegmental changes in the right infrahilar region. Favor confluence of vascular structures or atelectasis or infection. The lungs are otherwise clear. The pulmonary vasculature demonstrates no significant radiographic abnormality. No pleural effusion or pneumothorax.
[2024-03-20] MEDS: traMADol 50 MG TAB PO STA (04:29)
[2024-03-20 04:46] LABS: Appearance,Urine Clear (Clear); Bilirubin,Urine Negative (Negative); Blood,Urine Negative (Negative); Color,Urine Yellow; Glucose,Urine (UA) Negative (Negative); Hyaline Casts,Urine 17 /lpf (0-2); Ketones,Urine Negative (Negative); Leukocyte Esterase,Urine Small (Negative); Mucus,Urine Rare /hpf; Nitrite,Urine Negative (Negative); Protein,Urine Negative (Negative); RBC,Urine 1 /hpf (0-5); Specific Gravity,Urine 1.026 (1.001-1.035); Squamous Epithelial Cell,Urine 2 /hpf (0-4); Urobilinogen,Urine <2.0 mg/dL (<2.0); WBC,Urine 2 /hpf (0-5)
[2024-03-20] MEDS ORDERED: MAG HYDROX/AL HYDROX/SIMETH 30 ML CUP PO PRN (06:26)
[2024-03-20] MEDS ORDERED: CALCIUM CARBONATE 500 MG CHEWABLE PO PRN (06:26)
[2024-03-20] MEDS ORDERED: NALOXONE 0.4 MG/ML 1 ML VIAL IV PRN (06:26)
[2024-03-20] MEDS ORDERED: AMINOPHYLLINE 500 MG/20 ML VIAL IV PRN (08:50)
[2024-03-20] MEDS ORDERED: REGADENOSON 0.4 MG/5 ML SYRINGE IV PRN (08:50)
[2024-03-20] MEDS ORDERED: CAFFEINE CITRATE 60 MG/3 ML VIAL IV PRN (08:50)
[2024-03-20] MEDS: FAMOTIDINE 20 MG TAB PO SCH (09:02)
[2024-03-20] MEDS ORDERED: ALBUTEROL NEBULIZED 2.5 MG/3 ML INHALATION PRN (10:55)
--- NOTE | 2024-03-20 11:31 | CA ---
Lexiscan Nuclear Stress Test Report Name: Jenny Simmons Exam Date: 03/20/2024 10:33 Exam Location: [place] Stress Ht (in): 71 Wt (lb): 321 BSA: 2.58 Ordering Phys: Sammie Elmore Referring Phys: PADMINI Technologist: Ventura Bryant Age: 59 Gender: F : 1965 Procedure CPT: Indications: Reflex order-Stress test ICD-10 Codes: Patient History: CHEST PAIN, DIFFICULTY IN BREATHING, PALPITATIONS, ANGINA, HTN ,DIABETES, PRIOR CVA, FAMILY HX OF HEART DISEASE, CURRENT SMOKER 3 PPD X 51 YEARS. COPD, ASTHMA Medications: Meds past 24 hrs: Pretest Chest Pain: STRESS TEST Lexiscan Protocol Exercise Duration (min:sec): 01:[address] Depressions (mm): Angina Score: Acosta Score: Resting HR (bpm): 50 Peak HR (bpm): 53 Resting BP (mmHg): 117 / 82 Peak BP (mmHg): 133 / 73 MPHR: 160 Target HR: 136 % MPHR: 33 METS: 1.0 Total Dose: Peak Dose: Atropine: Double Product: 7049 BP Response: Stress Termination: INFUSION COMPLETE Stress Symptoms: DIFFICULTY IN BREATHING Stress Summary: ECG ANALYSIS Resting ECG: Stress ECG: CONCLUSIONS Baseline EKG revealed a atrial paced rhythm with a precordial nonspecific ST and T-wave changes. With Lexiscan administration the heart rate changed from 50-51 bpm. Mostly atrial paced beats were noted. Patient had some shortness of breath that was transient. EKG remained inconclusive. The blood pressure changed from 117/82 to 126/73. This is an inconclusive Lexiscan stress test by EKG criteria because of resting EKG changes. The nuclear scan results will be reported by the radiologist Dr. Jess Garibay MD (Electronically Signed) Final Date: 20 March 2024 11:30
--- NOTE | 2024-03-20 12:14 | P.CRDCN ---
History of Present Illness History of present illness: HISTORY OF PRESENT ILLNESS: This is a 59-year-old female with a past medical history significant for hypertension, hyperlipidemia, diabetes, permanent pacemaker implantation, CVA, ongoing nicotine dependence, and obesity. Patient has not been seen in the office since 2019. We have been asked to see the patient in consultation for chest pain. Patient examined at the bedside in the emergency room. Patient presented to the hospital with a chief complaint of chest pain. Patient states she began to have pain in the middle of her chest with radiation into her left arm. She also reports feeling shortness of breath. She denied any nausea or vomiting. At the time of examination, she denies chest pain or pressure. The patient states that she has not followed up with a coyote hunter in the last 3 to 4 years. She also reports she has not had her pacemaker checked in about 3-1/2 years. The patient continues to smoke as well. DIAGNOSTICS: - EKG reveals paced rhythm. Patient with T wave inversions in V2V6. - Chest xray subsegmental changes in right infrahilar region. Pulmonary vascular demonstrates no significant radiographic abnormality. No pleural effusion or pneumothorax. - Laboratory data: WBC 9.5. Hemoglobin 15.4. Platelet count 320. Sodium 141. Potassium 3.5. BUN 29. Creatinine 1.08. Troponin negative x 3. proBNP 242. TSH 0.628. - Current home cardiac medications include Lasix 40 mg daily, lisinopril 40 mg daily, carvedilol 12.5 mg twice a day, hydrochlorothiazide 50 mg daily - Most recent echocardiogram obtained in October 2022 revealed ejection fraction 55 to 60% with poorly visualized valvular structures. - Cardiac catheterization history: February [address] Serrano revealing intermediate disease involving proximal and mid RCA which is a dominant RCA. Normal left main coronary artery. Mild disease involving left circumflex. Intermediate disease involving mid LAD. Severe coronary vasospasm identified in distal LAD. REVIEW OF SYSTEMS: At the time of my exam: CONSTITUTIONAL: Denies fever or chills. HEENT: Denies blurred vision, vision changes, or eye pain. Denies hemoptysis CARDIOVASCULAR: Denies chest pain. Denies orthopnea. Denies PND. Denies palpitations RESPIRATORY: Denies shortness of breath. GASTROINTESTINAL: Denies abdominal pain. Denies nausea or vomiting. HEMATOLOGIC: Denies bleeding disorders. GENITOURINARY: Denies any blood in urine. SKIN: Denies pruitis. Denies rash. PHYSICAL EXAM: VITAL SIGNS: Reviewed. GENERAL: Well-developed in no acute distress. HEENT: Head is normocephalic. Pupils are equal, round. Sclerae anicteric. Mucous membranes of the mouth are moist. Neck supple. No JVD or thyromegaly LUNGS: Respirations even and unlabored. Lungs essentially clear to auscultation bilaterally. HEART: Regular rate and rhythm. S1 and S2 heard. ABDOMEN: Soft. Nondistended. Nontender. EXTREMITIES: Normal range of motion. No clubbing or cyanosis. Peripheral pulses intact. No lower extremity edema NEUROLOGIC: Awake and alert. Oriented x 3. ASSESSMENT: Chest pain, troponin negative x 3 Coronary artery disease with intermediate disease of the proximal and mid RCA and intermediate disease of LAD, per cath in 2016 History of severe coronary vasospasm in distal LAD, per cath 02/2017 Hypertension Hyperlipidemia Diabetes Sick sinus syndrome, status post dual-chamber permanent pacemaker implantation, [employer], 2017 History of CVA COPD Nicotine dependence Morbid obesity: BMI 44.8 PLAN: An acute coronary event has been ruled out Obtain 2D echo to assess cardiac structure and function Add aspirin and atorvastatin Resume home cardiac medications Interrogate pacemaker Patient to undergo Lexiscan stress test today Smoking cessation recommended. Patient to be referred to [place] quit line upon discharge If Lexiscan is abnormal, patient will be scheduled for cardiac catheterization on Saturday with Dr. Garibay Further recommendations pending patient course Nurse practitioner note has been reviewed by physician. Signing provider agrees with the documented findings, assessment, and plan of care documented by PERMIT TECHNICIAN as a scribe. Past Medical History Past Medical History: Asthma, Coronary Artery Disease (CAD), Chest Pain / Angina, COPD, Diabetes Mellitus, Fibromyalgia, Hypertension, Myocardial Infarction (SD), Sleep Apnea/CPAP/BIPAP Additional Past Medical History / Comment(s): MS, neuropathy, arthritis in back, knees, ankles, feet. VERTIGO. fibromyalgia, sleep apnea with cpap use, abd aneurysm Last Myocardial Infarction Date:: 2004 History of Any Multi-Drug Resistant Organisms: None Reported Past Surgical History: Appendectomy, Cholecystectomy, Hysterectomy, Pacemaker, Tonsillectomy Additional Past Surgical History / Comment(s): Bladder SUSPENSION. LEFT carpal tunnel. Cyst removed from left middle finger Past Anesthesia/Blood Transfusion Reactions: Previous Problems w/ Anesthesia, Motion Sickness Additional Past Anesthesia/Blood Transfusion Reaction / Comment(s): HAS BEEN COMBATIVE POST GENERAL ANESTHESIA Type of Cardiac Device: Permanent Pacemaker Device Placement Date:: 2017 Past Psychological History: Depression Smoking Status: Current every day smoker Past Alcohol Use History: Occasional Past Drug Use History: Marijuana - Past Family History Mother Family Medical History: Diabetes Mellitus Additional Family Medical History / Comment(s): heart problems Father Family Medical History: Diabetes Mellitus Additional Family Medical History / Comment(s): heart problems Medications and Allergies Home Medications Medication Instructions Recorded Confirmed Type Albuterol Inhaler [Ventolin Hfa 1 - 2 puff INHALATION RT-Q6H PRN 03/24/17 03/20/24 History Inhaler] Furosemide [Lasix] 40 mg PO DAILY 10/31/22 03/20/24 History lisinopriL 40 mg PO DAILY 10/31/22 03/20/24 History Budesonide/Formoterol Fumarate 2 puff INHALATION RT-BID 03/20/24 03/20/24 History [Symbicort 80-4.5 Mcg Inhaler] DULoxetine HCL [Cymbalta] 60 mg PO DAILY 03/20/24 03/20/24 History Fluticasone Nasal [place] [Flonase 2 spray EA NOSTRIL BID PRN 03/20/24 03/20/24 History Nasal [place]] Fluticasone/Umeclidin/Vilanter 1 puff INHALATION RT-DAILY 03/20/24 03/20/24 History [Trelegy Ellipta 100-62.5-25] Gabapentin [Neurontin] 400 mg PO TID 03/20/24 03/20/24 History Magnesium Oxide [Mag-Ox] 400 mg PO DAILY 03/20/24 03/20/24 History Naproxen [Naprosyn] 500 mg PO BID 03/20/24 03/20/24 History Nitroglycerin Sl Tabs [Nitrostat] 0.4 mg SUBLINGUAL Q5M PRN 03/20/24 03/20/24 History carvediloL [Coreg] 12.5 mg PO BID 03/20/24 03/20/24 History hydroCHLOROthiazide [Hydrodiuril] 50 mg PO DAILY 03/20/24 03/20/24 History Allergies Allergy/AdvReac Type Severity Reaction Status Date / Time acetaminophen [From Tylenol] Allergy Dyspnea Verified 03/20/24 07:48 codeine Allergy Dyspnea Verified 03/20/24 07:48 Melon Allergy Anaphylaxis Verified 03/20/24 07:48 morphine Allergy Rash/Hives Verified 03/20/24 07:48 Penicillins Allergy Dyspnea Verified 03/20/24 07:48 alprazolam [From Xanax] AdvReac See comment Verified 03/20/24 07:48 Physical Exam Vitals: Vital Signs Temp Pulse Resp BP Pulse Ox 03/20/24 09:05 95 03/20/24 09:00 50 L 18 136/73 84 L 03/20/24 06:13 50 L 18 147/84 92 L 03/20/24 04:00 50 L 18 119/89 95 03/20/24 02:32 50 L 18 110/63 94 L 03/20/24 01:58 97.8 F 50 L 18 118/70 93 L Intake and Output 03/19/24 03/20/24 03/20/24 22:59 06:59 14:59 Other: Weight 145.603 kg Results 03/20/24 02:40 03/20/24 02:40 Cardiac Enzymes 03/20/24 03/20/24 03/20/24 Range/Units 02:40 02:40 06:35 AST 26 (14-36) U/L Troponin I <0.012 <0.012 (0.000-0.034) ng/mL 03/20/24 Range/Units 09:06 AST (14-36) U/L Troponin I <0.012 (0.000-0.034) ng/mL Coagulation 03/20/24 Range/Units 02:40 PT 11.0 (10.0-12.5) sec APTT 23.3 (22.0-30.0) sec CBC 03/20/24 Range/Units 02:40 WBC 9.5 (3.8-10.6) k/uL RBC 5.26 (3.80-5.40) m/uL Hgb 15.4 (11.4-16.0) gm/dL Hct 46.3 H (34.0-46.0) % Plt Count 320 (150-450) k/uL Comprehensive Metabolic Panel 03/20/24 Range/Units 02:40 Sodium 141 (137-145) mmol/L Potassium 3.5 (3.5-5.1) mmol/L Chloride 107 (98-107) mmol/L Carbon Dioxide 25 (22-30) mmol/L BUN 29 H (7-17) mg/dL Creatinine 1.08 H (0.52-1.04) mg/dL Glucose 123 H (74-99) mg/dL Calcium 9.6 (8.4-10.2) mg/dL AST 26 (14-36) U/L ALT 18 (4-34) U/L Alkaline Phosphatase 97 (38-126) U/L Total Protein 7.2 (6.3-8.2) g/dL Albumin 4.3 (3.5-5.0) g/dL Current Medications Generic Name Dose Route Start Last Admin Trade Name Freq PRN Reason Stop Dose Admin Acetaminophen 650 mg 03/20/24 06:26 Acetaminophen Tab 325 Mg Tab PO Q6HR PRN Mild Pain or Fever > 100.5 Al Hydroxide/Mg Hydroxide 15 ml 03/20/24 06:26 Mag Hydrox/Al Hydrox/Simeth 30 Ml Cup PO Q6HR PRN Indigestion Albuterol Sulfate 2.5 mg 03/20/24 10:55 Albuterol Nebulized 2.5 Mg/3 Ml INHALATION RT-QID PRN Shortness Of Breath Or Wheezing Aminophylline 100 mg 03/20/24 08:50 Aminophylline 500 Mg/20 Ml Vial IV 03/20/24 12:50 ONCE PRN Patient Response Budesonide/Formoterol Fumarate 2 puff 03/20/24 20:00 Symbicort 80-4.5 Mcg Inhaler INHALATION RT-BID [facility] Caffeine Citrate 60 mg 03/20/24 08:50 Caffeine Citrate 60 Mg/3 Ml Vial IV 03/20/24 12:50 ONCE PRN Patient Response Calcium Carbonate/Glycine 1,000 mg 03/20/24 06:26 Calcium Carbonate 500 Mg Chewable PO Q4HR PRN Dyspepsia Carvedilol 12.5 mg 03/20/24 17:30 Carvedilol 12.5 Mg Tab PO BID-W/MEALS [facility] Duloxetine HCl 60 mg 03/21/24 09:00 Duloxetine Hcl 60 Mg Capsule. PO DAILY [facility] Famotidine 20 mg 03/20/24 09:00 03/20/24 09:02 Famotidine 20 Mg Tab PO 20 mg BID KENDAL Administration Furosemide 40 mg 03/21/24 09:00 Furosemide 40 Mg Tab PO DAILY [facility] Gabapentin 400 mg 03/20/24 16:00 Gabapentin 400 Mg Cap PO TID [facility] Lisinopril 40 mg 03/21/24 09:00 Lisinopril 20 Mg Tab PO DAILY [facility] Naloxone HCl 0.2 mg 03/20/24 06:26 Naloxone 0.4 Mg/Ml 1 Ml Vial IV Q2M PRN Opioid Reversal Regadenoson 0.4 mg 03/20/24 08:50 Regadenoson 0.4 Mg/5 Ml Syringe IV 03/20/24 12:50 ONCE PRN Per Protocol Tramadol HCl 50 mg 03/20/24 06:26 Tramadol 50 Mg Tab PO Q6H PRN Moderate Pain (Scale 4 to 6) Intake and Output 03/19/24 03/20/24 03/20/24 22:59 06:59 14:59 Other: Weight 145.603 kg 03/20/24 02:40 03/20/24 02:40
--- NOTE | 2024-03-20 12:36 | NM ---
EXAMINATION TYPE: NM stress lexiscan cardiolite DATE OF EXAM: 03/20/2024 COMPARISON: NONE CLINICAL INDICATION: Female, 59 years old with history of CP; TECHNIQUE: After the intravenous administration of 7.57 mCi Tc 99m Sestamibi - Cardiolite resting SP ECT images acquired 50 minutes post injection. The patient received 0.4mg Lexiscan, 24.9 mCi Tc 99m Sestamibi - Stress images obtained [address] injection FINDINGS: Review of stress and rest SPECT images demonstrates anterolateral diminished perfusion on rest images apical costa. However, there may be some reversibility along the basal anterolateral wall on stress. In addition, there is a small area of reversibility at the inferior apical wall. Gated analysis shows normal wall motion with an estimated left ventricular ejection fraction of 60 %. TID is increased at 1.25. IMPRESSION: There are some scintigraphic abnormalities with possible reversibility along the inferior apical wall and anterolateral basal wall. In addition, TID is abnormally increased at 1.25. This may be seen in the setting of multivessel, global inducible ischemia. Further workup and evaluation should be consid ered. [facility], , 03/20/2024 12:34 PM
[2024-03-20] MEDS ORDERED: FLUTICASONE NASAL 50MCG/SPRAY 16GM BTL EA NOSTRIL PRN (13:40)
--- NOTE | 2024-03-20 13:47 | P.HPIM ---
History of Present Illness H&P Date: 03/20/24 Chief Complaint: chest pain Patient is a 59 female with COPD, AAA, CAD, fibromyalgia, pacemaker presenting with chest pain. Patient states she was laying in bed last night around 10 AM and felt a pressure-like chest pain while at rest. Patient describes as a constant pressurelike pain with no radiation to the left arm, back, jaw, denies any tenderness on palpation. Inspiration or expiration does not make the pain worse. Patient denies any other exacerbating factors. Patient admits to feeling relieved after given nitroglycerin by EMS. She states the pain subsided at within less than 30 minutes. The patient denies nausea, vomiting, cough, hemoptysis, shortness of breath, abdominal pain. Patient denies any history of DVT or blood clots, denies calf tenderness. EKG independently interpreted no ST elevations, ST depression, T wave changes, rate, QTc CXR independently interpreted displays no acute cardiopulmonary process. Thoracic aorta CT displayed no signs of pulmonary embolism Troponin I <0.012 x 2, proBNP 242, lipase 144, PT 11.0, INR 1.0, APTT 23.3, BUN 29, creatinine 1.08, glucose 123. UA displays elevated hyaline casts, small leukocyte esterase T97.8 F, TN 50, RR 18, BP 147/84, O2 sat 92% on room air ED documentation reviewed. Review of systems: Pertinent positives and negatives as discussed in HPI, a complete review of systems was performed and all other systems are negative. Social history: Tobacco: Current half pack smoker a 51 years Alcohol: Denies alcohol use Recreational drugs: Denies drug use Travel: No recent travel Occupation: On disability Physical examination: Vital signs reviewed General: non toxic, no distress, appears at stated age, normal weight Derm: no unusual rashes/lesions, warm Head: atraumatic, normocephalic, symmetric Eyes: EOMI, anicteric sclera, pupils equal round reactive to light ENT: Nose and ears atraumatic Neck: No cervical lymphadenopathy, trachea midline, supple Mouth: no lip lesion, mucus membranes moist Cardiovascular: Pacemaker, S1S2 reg, no murmur, positive dorsalis pedis pulse bilateral, no edema Lungs: CTA bilateral, no rhonchi, no rales, no accessory muscle use Abdominal: soft, nontender to palpation, no guarding Ext: muscle strength 5 out of 5 in all 4 extremities grossly, no gross muscle atrophy Neuro: CN II-XI grossly intact, no gross focal neuro deficits Psych: Alert, oriented to person, place, and time Assessment/Plan: Patient is a 59 female with COPD, AAA, CAD, fibromyalgia, pacemaker presenting with chest pain. #. Chest pain Cardiac versus GI versus respiratory versus MSK EKG independently interpreted no ST elevations, ST depression, T wave changes, rate, QTc CXR independently interpreted displays no acute cardiopulmonary process. Thoracic aorta CT displayed abdominal aortic aneurysm mildly increased in size measuring at 3.2 x 3.6 cm from 2.9 x 3.5 cm previously, no dissection, stenosis or significant acute periaortic abnormality Heart score of 3 presents as a low risk of MACE (0.9-1.7%) HARI score of 12 presents as a low risk Wells score 0 Troponin I <0.012 x 2, proBNP 242, lactic acid 1.6 all within normal limits D-dimer elevated at 1.4 TSH 0.628 A1c and lipid panel pending Aspirin 81 mg p.o. daily Atorvastatin 40 mg nightly Echocardiogram pending Cardiac monitoring Cardiology consulted, [place] scan scheduled this morning. Results show sonographic abnormalities with possible reversibility along inferior apical wall and anterior lateral basal, possible multivessel ischemia Plan for catheterization on Saturday. #. COPD (not in acute exacerbation) On 3 L nasal cannula Keep oxygen saturations between 88% to 92% Albuterol nebulized 2.5 mg inhalation 4 times daily as needed Symbicort 80-4.5 mcg 2 puff inhalation twice daily Continue with Trelegy #. Hypertension Carvedilol 12.5 mg p.o. twice daily Lisinopril 40 mg p.o. daily For Lasix 40 mg p.o. daily #. Type 2 diabetes Placed on insulin sliding scale subcu Accu-Cheks, monitor for hypoglycemia #. Neuropathy Continue gabapentin 4 pneumogram p.o. 3 times daily #. Anxiety/depression Continue Cymbalta 60 mg p.o. F: N/A E: Replete as needed N: Heart healthy diet A: Ambulatory DVT prophylaxis: Lovenox 40 SQ daily GI prophylaxis: Pepcid 20 mg p.o. twice daily The patient is admitted with an anticipated greater than 2 midnight stay for evaluation of chest pain. CODE STATUS: Full code Discussed with: Patient Anticipated discharge place: Home Past Medical History Past Medical History: Asthma, Coronary Artery Disease (CAD), Chest Pain / Angina, COPD, Diabetes Mellitus, Fibromyalgia, Hypertension, Myocardial Infarction (CT), Sleep Apnea/CPAP/BIPAP Additional Past Medical History / Comment(s): MS, neuropathy, arthritis in back, knees, ankles, feet. VERTIGO. fibromyalgia, sleep apnea with cpap use, abd aneurysm Last Myocardial Infarction Date:: 2004 History of Any Multi-Drug Resistant Organisms: None Reported Past Surgical History: Appendectomy, Cholecystectomy, Hysterectomy, Pacemaker, Tonsillectomy Additional Past Surgical History / Comment(s): Bladder SUSPENSION. LEFT carpal tunnel. Cyst removed from left middle finger Past Anesthesia/Blood Transfusion Reactions: Previous Problems w/ Anesthesia, Motion Sickness Additional Past Anesthesia/Blood Transfusion Reaction / Comment(s): HAS BEEN COMBATIVE POST GENERAL ANESTHESIA Type of Cardiac Device: Permanent Pacemaker Device Placement Date:: 2017 Past Psychological History: Depression Smoking Status: Current every day smoker Past Alcohol Use History: Occasional Past Drug Use History: Marijuana - Past Family History Mother Family Medical History: Diabetes Mellitus Additional Family Medical History / Comment(s): heart problems Father Family Medical History: Diabetes Mellitus Additional Family Medical History / Comment(s): heart problems Medications and Allergies Home Medications Medication Instructions Recorded Confirmed Type Albuterol Inhaler [Ventolin Hfa 1 - 2 puff INHALATION RT-Q6H PRN 03/24/17 03/20/24 History Inhaler] Furosemide [Lasix] 40 mg PO DAILY 10/31/22 03/20/24 History lisinopriL 40 mg PO DAILY 10/31/22 03/20/24 History Budesonide/Formoterol Fumarate 2 puff INHALATION RT-BID 03/20/24 03/20/24 History [Symbicort 80-4.5 Mcg Inhaler] DULoxetine HCL [Cymbalta] 60 mg PO DAILY 03/20/24 03/20/24 History Fluticasone Nasal [place] [Flonase 2 spray EA NOSTRIL BID PRN 03/20/24 03/20/24 H istory Nasal [place]] Fluticasone/Umeclidin/Vilanter 1 puff INHALATION RT-DAILY 03/20/24 03/20/24 History [Trelegy Ellipta 100-62.5-25] Gabapentin [Neurontin] 400 mg PO TID 03/20/24 03/20/24 History Magnesium Oxide [Mag-Ox] 400 mg PO DAILY 03/20/24 03/20/24 History Naproxen [Naprosyn] 500 mg PO BID 03/20/24 03/20/24 History Nitroglycerin Sl Tabs [Nitrostat] 0.4 mg SUBLINGUAL Q5M PRN 03/20/24 03/20/24 History carvediloL [Coreg] 12.5 mg PO BID 03/20/24 03/20/24 History hydroCHLOROthiazide [Hydrodiuril] 50 mg PO DAILY 03/20/24 03/20/24 History Allergies Allergy/AdvReac Type Severity Reaction Status Date / Time acetaminophen [From Tylenol] Allergy Dyspnea Verified 03/20/24 07:48 codeine Allergy Dyspnea Verified 03/20/24 07:48 Melon Allergy Anaphylaxis Verified 03/20/24 07:48 morphine Allergy Rash/Hives Verified 03/20/24 07:48 Penicillins Allergy Dyspnea Verified 03/20/24 07:48 alprazolam [From Xanax] AdvReac See comment Verified 03/20/24 07:48 Physical Exam Vitals: Vital Signs Temp Pulse Resp BP Pulse Ox 03/20/24 06:13 50 L 18 147/84 92 L 03/20/24 04:00 50 L 18 119/89 95 03/20/24 02:32 50 L 18 110/63 94 L 03/20/24 01:58 97.8 F 50 L 18 118/70 93 L Intake and Output 03/19/24 03/20/24 03/20/24 22:59 06:59 14:59 Other: Weight 145.603 kg Results CBC & Chem 7: 03/20/24 02:40 03/20/24 02:40 Labs: Abnormal Lab Results - Last 24 Hours (Table) 03/20/24 03/20/24 03/20/24 Range/Units 02:40 02:40 04:21 Hct 46.3 H (34.0-46.0) % BUN 29 H (7-17) mg/dL Creatinine 1.08 H (0.52-1.04) mg/dL Glucose 123 H (74-99) mg/dL Ur Leukocyte Esterase Small H (Negative) Hyaline Casts 17 H (0-2) /lpf Urine Mucus Rare H (None) /hpf
[2024-03-20] MEDS: ACETAMINOPHEN TAB 325 MG TAB PO PRN (14:07)
[2024-03-20] MEDS: traMADol 50 MG TAB PO PRN (15:04)
[2024-03-20] MEDS: GABAPENTIN 400 MG CAP PO SCH (15:29)
[2024-03-20 17:12] LABS: Glucose,Whole Blood 91 mg/dL (70-110)
[2024-03-20 18:46] LABS: Chol/HDL Ratio 5.28 Ratio; LDL Cholesterol,Calculated 161.6 mg/dL (0.0-131.0)
[2024-03-20] MEDS: carvediloL 12.5 MG TAB PO SCH (19:24)
[2024-03-20] MEDS: INSULIN ASPART (NovoLOG) 100 UNIT/ML VIAL SQ SCH (19:24)
[2024-03-20] MEDS: SYMBICORT 80-4.5 MCG INHALER INHALATION SCH (20:09)
[2024-03-20 20:29] LABS: Glucose,Whole Blood 207 mg/dL (70-110)
[2024-03-20] MEDS: ATORVASTATIN 40 MG TAB PO SCH (20:46)
[2024-03-21 06:22] LABS: Glucose,Whole Blood 105 mg/dL (70-110)
[2024-03-21] MEDS: IPRATROPIUM 0.5 MG/2.5 ML NEBU INHALATION SCH (08:05)
[2024-03-21] MEDS: lisinopriL 20 MG TAB PO SCH (09:07)
[2024-03-21] MEDS: FUROSEMIDE 40 MG TAB PO SCH (09:07)
[2024-03-21] MEDS: ASPIRIN 81 MG PO SCH (09:07)
[2024-03-21] MEDS: DULoxetine HCL 60 MG CAPSULE.DR PO SCH (09:07)
[2024-03-21 09:34] LABS: ALT 17 U/L (8-44); AST 22 U/L (13-35); Albumin 4.3 g/dL (3.8-4.9); Albumin/Globulin Ratio 1.59 Ratio (1.60-3.17); Alkaline Phosphatase 98 U/L (41-126); BUN/Creat Ratio 28.78 Ratio (12.00-20.00); Blood Urea Nitrogen 25.9 mg/dL (9.0-27.0); Calcium 9.2 mg/dL (8.7-10.3); Carbon Dioxide 28.4 mmol/L (21.6-31.8); Chloride 101 mmol/L (96-109); Globulin 2.7 g/dL (1.6-3.3); Glucose 107 mg/dL (70-110); Magnesium 2.2 mg/dL (1.5-2.4); Potassium 3.7 mmol/L (3.5-5.5); Sodium 141 mmol/L (135-145); Total Bilirubin 0.5 mg/dL (0.3-1.2)
[2024-03-21 11:50] LABS: Glucose,Whole Blood 109 mg/dL (70-110)
--- NOTE | 2024-03-21 12:36 | CA ---
Transthoracic Echo Report Name: Jenny Simmons Age: 59 Gender: F : 1965 Exam Date: 03/20/2024 14:13 Exam Location: [place] Echo Ht (in): 71 Wt (lb): 321 Ordering Physician: Festus Gayle MD Attending/Referring Phys: Rn Ed Rosalee Anne RDCS Procedure CPT: Indications: Chest Pain Cardiac Hx: Technical Quality: Technically difficult study Contrast 1: Definity Total Dose (mL): 2 Contrast 2: Total Dose (mL): MEASUREMENTS (Male / Female) Normal Values 2D ECHO LV Diastolic Diameter PLAX 4.2 cm 4.2 - 5.9 / 3.9 - 5.3 cm LV Systolic Diameter PLAX 2.6 cm IVS Diastolic Thickness 1.6 cm 0.6 - 1.0 / 0.6 - 0.9 cm LVPW Diastolic Thickness 1.9 cm 0.6 - 1.0 / 0.6 - 0.9 cm LV Relative Wall Thickness 0.8 RV Internal Dim ED PLAX 3.7 cm M-MODE Aortic Root Diameter MM 3.4 cm LA Systolic Diameter MM 5.3 cm LA Ao Ratio MM 1.6 DOPPLER AV Peak Velocity 127.4 cm/s AV Peak Gradient 6.5 mmHg AV Mean Velocity 93.3 cm/s AV Mean Gradient 3.7 mmHg AV Velocity Time Integral 25.2 cm LVOT Peak Velocity 117.0 cm/s LVOT Peak Gradient 5.5 mmHg LVOT Velocity Time Integral 26.5 cm MV Area PHT 2.1 cm??? Mitral E Point Velocity 61.1 cm/s Mitral A Point Velocity 96.8 cm/s Mitral E to A Ratio 0.6 MV Deceleration Time 365.9 ms MV E' Velocity 4.1 cm/s Mitral E to MV E' Ratio 15.1 FINDINGS Left Ventricle Left ventricle not well visualized. Moderately increased left ventricular wall thickness. Left ventricular cavity size normal. Left ventricular ejection fraction is estimated at 50-55 %. Right Ventricle Mild right ventricular dilatation. Right Atrium Right atrium not well visualized. Left Atrium Mildly increased left atrial area. Mitral Valve Mitral valve not well visualized. No mitral stenosis. Aortic Valve Aortic valve not well visualized. No aortic valve stenosis or regurgitation. Tricuspid Valve Tricuspid valve not well visualized. Pulmonic Valve Pulmonic valve not well visualized. Pericardium No pericardial effusion. Aorta Normal size aortic root and proximal ascending aorta. CONCLUSIONS Indication: Chest pain rule out myocardial infarction Impression Preserved LV size systolic function ejection fraction greater than 55% Previewed by: Dr. Viktor Mclaughlin MD (Electronically Signed) Final Date: 21 March 2024 12:35
--- NOTE | 2024-03-21 13:16 | P.PN ---
Subjective Progress Note Date: 03/21/24 this is Syed Valdez NP, I'm dictating on behalf of Dr. Mclaughlin's H&P and A&P. Patient was interviewed and examined. Patient is a pleasant 59-year-old female who presented to the hospital with chest pain. Patient reports that she is still having some pain at the inferior aspect of the left ribs and left upper quadrant. She is otherwise denying chest pain, shortness of breath, heart palpitations. No significant events noted overnight. GENERAL: Well-appearing, well-nourished and in no acute distress. NECK: Supple without JVD or thyromegaly. LUNGS: Breath sounds clear to auscultation bilaterally. Respiration equal and unlabored. No wheezes, rales or rhonchi. HEART: Regular rate and rhythm without murmurs, rubs or gallops. S1 and S2 heard. EXTREMITIES: Normal range of motion, no edema. No clubbing or cyanosis. Peripheral pulses intact and strong. VITALS: Temp 98.4, pulse 54, respirations 18, blood pressure 155/89, O2 saturation 98% on room air TELEMETRY: Normal sinus rhythm LABS: White count 9.5, hemoglobin 15.4, D-dimer 1.24, sodium 141, potassium 3.5, BUN 29, creatinine 1.08, hemoglobin A1c 6.8, magnesium 1.8, troponin less than 0.012, BNP 242, triglycerides 181, cholesterol 244, LDL 161, HDL 46.2, TSH is 0.628 IMPRESSION: 1. Chest pain, with Lexiscan stress test revealing abnormalities with possible reversibility along the inferior apical wall and anterior lateral basal wall. 2. Coronary artery disease with intermediate disease in the proximal and mid R CA and intermediate disease of the LAD, per cath in 2017 3. History of severe coronary vasospasm and distal LAD 4. Hypertension 5. Hyperlipidemia 6. Diabetes 7. Sick sinus syndrome, status post dual-chamber permanent pacemaker 8. History of CVA 9. COPD 10. Nicotine dependence 11. Morbid obesity: BMI 44.8 PLAN: Per abnormal stress test, patient is scheduled for cardiac cath on Saturday with Dr. Serrano. Patient asked about her aorta as her from an aneurysm. Aortic dimension is not an issue at this time. Continue current medications as prescribed. Continue telemetry monitoring. Further recommendations based on patient's clinical course. Objective - Vital Signs Vital signs: Vital Signs Temp 98.4 F 03/21/24 01:56 Pulse 51 L 03/21/24 06:31 Resp 18 03/21/24 01:56 BP 155/89 03/21/24 06:31 Pulse Ox 98 03/21/24 01:56 FiO2 Intake & Output 03/20/24 03/21/24 03/21/24 18:59 06:59 18:59 Intake Total 240 Balance 240 Weight 145.603 kg Intake: Oral 240 Other: # Voids 1 - Labs CBC & Chem 7: 03/20/24 02:40 03/21/24 05:31 Labs: Abnormal Lab Results - Last 24 Hours (Table) 03/20/24 03/20/24 03/20/24 Range/Units 09:06 09:06 09:06 D-Dimer 1.24 H (<0.60) mg/L FEU POC Glucose (mg/dL) (70-110) mg/dL Hemoglobin A1c 6.8 H (<=6.0) % Triglycerides 181.00 H (0.00-149.00) mg/dL Cholesterol 244.00 H (0.00-200.00) mg/dL LDL Cholesterol, Calc 161.6 H (0.0-131.0) mg/dL 03/20/24 Range/Units 20:28 D-Dimer (<0.60) mg/L FEU POC Glucose (mg/dL) 207 H (70-110) mg/dL Hemoglobin A1c (<=6.0) % Triglycerides (0.00-149.00) mg/dL Cholesterol (0.00-200.00) mg/dL LDL Cholesterol, Calc (0.0-131.0) mg/dL
--- NOTE | 2024-03-21 15:17 | P.PN ---
Subjective Progress Note Date: 03/21/24 Hospital course: Patient is a 59 female with COPD, AAA, CAD, fibromyalgia, pacemaker presenting with chest pain. Patient states she was laying in bed last night around 10 AM and felt a pressure-like chest pain while at rest. Patient describes as a constant pressurelike pain with no radiation to the left arm, back, jaw, denies any tenderness on palpation. Inspiration or expiration does not make the pain worse. Patient denies any other exacerbating factors. Patient admits to feeling relieved after given nitroglycerin by EMS. She states the pain subsided at within less than 30 minutes. The patient denies nausea, vomiting, cough, hemoptysis, shortness of breath, abdominal pain. Patient denies any history of DVT or blood clots, denies calf tenderness. EKG independently interpreted no ST elevations, ST depression, T wave changes, rate, QTc CXR independently interpreted displays no acute cardiopulmonary process. Thoracic aorta CT displayed no signs of pulmonary embolism Troponin I <0.012 x 2, proBNP 242, lipase 144, PT 11.0, INR 1.0, APTT 23.3, BUN 29, creatinine 1.08, glucose 123. UA displays elevated hyaline casts, small leukocyte esterase T97.8 F, OR 50, RR 18, BP 147/84, O2 sat 92% on room air 03/21/2024: Patient seen and evaluated bedside. No acute events overnight. No acute complaints. She states her chest pain has improved. She has been ambulating across the hallways and denies any complaint of chest pain or shortne ss of breath. She is awaiting catheterization for Saturday. Data received today: Pertinent Labs: Triglycerides 181, cholesterol 244, LDL 161, potassium 3.7, magnesium 2.2, BUN 25.9, creatinine 0.9 Review of systems: Pertinent positives and negatives as discussed in HPI, a complete review of systems was performed and all other systems are negative. Physical examination: Vital signs reviewed General: non toxic, no distress, appears at stated age, normal weight Derm: no unusual rashes/lesions, warm Head: atraumatic, normocephalic, symmetric Eyes: EOMI, anicteric sclera, pupils equal round reactive to light ENT: Nose and ears atraumatic Neck: No cervical lymphadenopathy, trachea midline, supple Mouth: no lip lesion, mucus membranes moist Cardiovascular: Pacemaker, S1S2 reg, no murmur, positive dorsalis pedis pulse bilateral, no edema Lungs: CTA bilateral, no rhonchi, no rales, no accessory muscle use Abdominal: soft, nontender to palpation, no guarding Ext: muscle strength 5 out of 5 in all 4 extremities grossly, no gross muscle atrophy Neuro: CN II-XI grossly intact, no gross focal neuro deficits Psych: Alert, oriented to person, place, and time Assessment/Plan: Patient is a 59 female with COPD, AAA, CAD, fibromyalgia, pacemaker presenting with chest pain. #. Chest pain Cardiac versus GI versus respiratory versus MSK EKG independently interpreted no ST elevations, ST depression, T wave changes, rate, QTc CXR independently interpreted displays no acute cardiopulmonary process. Thoracic aorta CT displayed abdominal aortic aneurysm mildly increased in size measuring at 3.2 x 3.6 cm from 2.9 x 3.5 cm previously, no dissection, stenosis or significant acute periaortic abnormality Heart score of 3 presents as a low risk of MACE (0.9-1.7%) HARI score of 12 presents as a low risk Wells score 0 Troponin I <0.012 x 2, proBNP 242, lactic acid 1.6 all within normal limits D-dimer elevated at 1.4 TSH 0.628 A1c and lipid panel pending Aspirin 81 mg p.o. daily Atorvastatin 40 mg nightly Echocardiogram pending Cardiac monitoring Cardiology consulted, [place] scan scheduled this morning. Results show sonographic abnormalities with possible reversibility along inferior apical wall and anterior lateral basal, possible multivessel ischemia Plan for catheterization on Saturday. #. COPD (not in acute exacerbation) On 3 L nasal cannula Keep oxygen saturations between 88% to 92% Albuterol nebulized 2.5 mg inhalation 4 times daily as needed Symbicort 80-4.5 mcg 2 puff inhalation twice daily Continue with Trelegy #. Hypertension Carvedilol 12.5 mg p.o. twice daily Lisinopril 40 mg p.o. daily For Lasix 40 mg p.o. daily #. Type 2 diabetes Placed on insulin sliding scale subcu Accu-Cheks, monitor for hypoglycemia #. Neuropathy Continue gabapentin 4 pneumogram p.o. 3 times daily #. Anxiety/depression Continue Cymbalta 60 mg p.o. F: N/A E: Replete as needed N: Heart healthy diet A: Ambulatory DVT prophylaxis: Heparin 5000 unit SQ q8hr GI prophylaxis: Pepcid 20 mg p.o. twice daily The patient is admitted with an anticipated greater than 2 midnight stay for evaluation of chest pain. CODE STATUS: Full code Discussed with: Patient Anticipated discharge place: Home Objective - Vital Signs Vital signs: Vital Signs Temp 97.7 F 03/21/24 07:00 Pulse 100 03/21/24 07:00 Resp 17 03/21/24 07:00 BP 149/84 03/21/24 07:00 Pulse Ox 17 L 03/21/24 07:00 FiO2 Intake & Output 03/20/24 03/21/24 03/21/24 18:59 06:59 18:59 Intake Total 240 358 Balance 240 358 Weight 145.603 kg Intake: Oral 240 358 Other: # Voids 1 - Labs CBC & Chem 7: 03/20/24 02:40 03/24/24 05:49 Labs: Abnormal Lab Results - Last 24 Hours (Table) 03/20/24 03/20/24 03/20/24 Range/Units 09:06 09:06 20:28 BUN/Creatinine Ratio (12.00-20.00) Ratio POC Glucose (mg/dL) 207 H (70-110) mg/dL Hemoglobin A1c 6.8 H (<=6.0) % Albumin/Globulin Ratio (1.60-3.17) Ratio Triglycerides 181.00 H (0.00-149.00) mg/dL Cholesterol 244.00 H (0.00-200.00) mg/dL LDL Cholesterol, Calc 161.6 H (0.0-131.0) mg/dL 03/21/24 Range/Units 05:31 BUN/Creatinine Ratio 28.78 H (12.00-20.00) Ratio POC Glucose (mg/dL) (70-110) mg/dL Hemoglobin A1c (<=6.0) % Albumin/Globulin Ratio 1.59 L (1.60-3.17) Ratio Triglycerides (0.00-149.00) mg/dL Cholesterol (0.00-200.00) mg/dL LDL Cholesterol, Calc (0.0-131.0) mg/dL Assessment and Plan Assessment: Attestation Attestation/ Tar Kettle Runner Note: Attestation to Progress Note, Participation (I saw and evaluated the patient with the Resident, and I reviewed and discussed the patient with the Resident and agree with the Resident's findings and plans as documented above., management reviewed and discussed), I agree with findings & plan, Provider Signature (OMAR ALEXANDRE, THOMAS Velázquez Time with Patient: Greater than 30
[2024-03-21 16:56] LABS: Glucose,Whole Blood 142 mg/dL (70-110)
[2024-03-21] MEDS: HEPARIN SODIUM,PORCINE 5,000 UNIT/ML 1 ML VIAL SQ SCH (17:54)
[2024-03-21] MEDS: PSEUDOEPHEDRINE 30 MG TAB PO PRN (17:54)
[2024-03-21 20:35] LABS: Glucose,Whole Blood 187 mg/dL (70-110)
[2024-03-22 05:46] LABS: Glucose,Whole Blood 117 mg/dL (70-110)
--- NOTE | 2024-03-22 08:20 | P.PN ---
Subjective Progress Note Date: 03/22/24 This is Syed Valdez NP, I'm dictating on behalf of Dr. Mclaughlin's H&P and A&P. Patient was interviewed and examined. Patient is a pleasant 59-year-old female who presented to the hospital with chest pain. Patient had an abnormal Lexiscan stress test indicative of possible ischemia, and is planning to undergo a heart cath tomorrow. Patient reports occasional on and off chest discomfort overnight. She reports a headache this morning. She otherwise denies shortness of breath, dizziness, and near syncope. Patient does report that her niece yesterday, which she states has been stressful for her. GENERAL: Well-appearing, well-nourished and in no acute distress. NECK: Supple without JVD or thyromegaly. LUNGS: Breath sounds clear to auscultation bilaterally. Respiration equal and unlabored. No wheezes, rales or rhonchi. HEART: Regular rate and rhythm without murmurs, rubs or gallops. S1 and S2 heard. EXTREMITIES: Normal range of motion, no edema. No clubbing or cyanosis. Peripheral pulses intact and strong. VITALS: Temp 97.7, pulse 50, respirations 18, blood pressure 170/78, O2 saturation 93% on room air TELEMETRY: Sinus mechanism LABS: No new labs since 03/21/2024 IMPRESSION: 1. Chest pain, with Lexiscan stress test revealing abnormalities with possible reversibility along the inferior apical wall and anterior lateral basal wall. 2. Coronary artery disease with intermediate disease in the proximal and mid RCA and intermediate disease of the LAD, per cath in 2017 3. History of severe coronary vasospasm and distal LAD 4. Hypertension 5. Hyperlipidemia 6. Diabetes 7. Sick sinus syndrome, status post dual-chamber permanent pacemaker 8. History of CVA 9. COPD 10. Nicotine dependence 11. Morbid obesity: BMI 44.8 PLAN: Per abnormal stress test, patient is scheduled for cardiac cath on Saturday with Dr. Serrano. Patient asked about her aorta as her from an aneurysm. Aortic dimension is not an issue at this time. Continue current medications as prescribed. Continue telemetry monitoring. Further recommendations based on patient's clinical course. Objective - Vital Signs Vital signs: Vital Signs Temp 97.7 F 03/22/24 03:10 Pulse 51 L 03/22/24 06:24 Resp 18 03/22/24 03:10 BP 170/78 03/22/24 06:24 Pulse Ox 93 L 03/22/24 03:10 FiO2 Intake & Output 03/21/24 03/22/24 03/22/24 18:59 06:59 18:59 Intake Total 476 Balance 476 Intake: Oral 476 Other: # Voids 3 1 # Bowel Movements 0 - Labs CBC & Chem 7: 03/20/24 02:40 03/21/24 05:31 Labs: Abnormal Lab Results - Last 24 Hours (Table) 03/21/24 03/21/24 03/21/24 Range/Units 05:31 16:55 20:34 BUN/Creatinine Ratio 28.78 H (12.00-20.00) Ratio POC Glucose (mg/dL) 142 H 187 H (70-110) mg/dL Albumin/Globulin Ratio 1.59 L (1.60-3.17) Ratio 03/22/24 Range/Units 05:45 BUN/Creatinine Ratio (12.00-20.00) Ratio POC Glucose (mg/dL) 117 H (70-110) mg/dL Albumin/Globulin Ratio (1.60-3.17) Ratio
[2024-03-22] MEDS: NITROGLYCERIN SL TABS 0.4 MG TAB SUBLINGUAL PRN (08:43)
[2024-03-22 09:31] LABS: BUN/Creat Ratio 24.22 Ratio (12.00-20.00); Blood Urea Nitrogen 21.8 mg/dL (9.0-27.0); Carbon Dioxide 26.1 mmol/L (21.6-31.8); Chloride 101 mmol/L (96-109); Glucose 120 mg/dL (70-110); Magnesium 2.2 mg/dL (1.5-2.4); Potassium 3.8 mmol/L (3.5-5.5); Sodium 138 mmol/L (135-145)
--- NOTE | 2024-03-22 10:31 | P.PN ---
Subjective Progress Note Date: 03/22/24 Patient continues to have intermittent chest discomfort overnight. Also having a mild headache today. Patient had a abnormal Lexiscan with concern for ischemia and is scheduled to undergo a cardiac catheterization tomorrow Friday 03/23. Echocardiogram reveals an ejection fraction of 50 to 55% with preserved LV size systolic function. Electrolytes are within normal limits today with a BUN of 21.8 creatinine of 0.9. Hemoglobin A1c of 6.8. Review of Systems Constitutional: Denied any fatigue denied any fever. Cardio vascular: denied any chest pain, palpitations Gastrointestinal: denied any nausea, vomiting, diarrhea Pulmonary: Denied any shortness of breath cough Neurologic denied any new focal deficits All inpatient medications were reviewed and appropriate changes in these medications as dictated in the interval history and assessment and plan. PHYSICAL EXAMINATION: GENERAL: The patient is alert and oriented x3, not in any acute distress. Well developed, well nourished. HEENT: Pupils are round and equally reacting to light. EOMI. No scleral icterus. No conjunctival pallor. Normocephalic, atraumatic. No pharyngeal erythema. No thyromegaly. CARDIOVASCULAR: S1 and S2 present. No murmurs, rubs, or gallops. PULMONARY: Chest is clear to auscultation, no wheezing or crackles. ABDOMEN: Soft, nontender, nondistended, normoactive bowel sounds. No palpable organomegaly. MUSCULOSKELETAL: No joint swelling or deformity. EXTREMITIES: No cyanosis, clubbing, or pedal edema. NEUROLOGICAL: Gross neurological examination did not reveal any focal deficits. SKIN: No rashes. Assessment and plan Chest pain rule out acute coronary syndrome with abnormal [place] scan D-dimer elevated at 1.4 COPD with no acute exacerbation on oxygen chronically outpatient Hypertension Type 2 diabetes mellitus hemoglobin A1c 6.8 Diabetic neuropathy Anxiety/depression Fibromyalgia Sleep apnea with CPAP use Permanent pacemaker Chronic nicotine use GI prophylaxis Full code Continue aspirin 81 mg daily continue Lipitor 40 mg daily Continue carvedilol oral Lasix Continue sliding scale insulin with Accu-Cheks ACHS Echocardiogram completed and reviewed Cardiology following closely Patient is scheduled to undergo cardiac catheterization tomorrow Dr. Perry The impression and plan of care has been dictated by Carine Jaramillo Nurse Practitioner as directed, acting as scribe only Dr. Rozina MD I have performed a history and physical examination and medical decision making of this patient, discussed the same with the dictator, and agree with the dictators assessment and plan as written, documented as a scribe. Based on total visit time, I have performed more than 50% of this visit. Objective - Vital Signs Vital signs: Vital Signs Temp 98 F 03/22/24 07:00 Pulse 50 L 03/22/24 07:00 Resp 18 03/22/24 07:00 BP 139/69 03/22/24 07:00 Pulse Ox 94 L 03/22/24 07:00 FiO2 Intake & Output 03/21/24 03/22/24 03/22/24 18:59 06:59 18:59 Intake Total 476 180 Balance 476 180 Intake: Oral 476 180 Other: # Voids 3 1 # Bowel Movements 0 - Labs CBC & Chem 7: 03/20/24 02:40 03/22/24 05:40 Labs: Abnormal Lab Results - Last 24 Hours (Table) 03/21/24 03/21/24 03/22/24 Range/Units 16:55 20:34 05:40 BUN/Creatinine Ratio 24.22 H (12.00-20.00) Ratio Glucose 120 H (70-110) mg/dL POC Glucose (mg/dL) 142 H 187 H (70-110) mg/dL 03/22/24 Range/Units 05:45 BUN/Creatinine Ratio (12.00-20.00) Ratio Glucose (70-110) mg/dL POC Glucose (mg/dL) 117 H (70-110) mg/dL Assessment and Plan Time with Patient: Less than 30
[2024-03-22 12:09] LABS: Glucose,Whole Blood 161 mg/dL (70-110)
[2024-03-22 17:39] LABS: Glucose,Whole Blood 131 mg/dL (70-110)
[2024-03-22 20:29] LABS: Glucose,Whole Blood 252 mg/dL (70-110)
[2024-03-23] MEDS: SODIUM CHLORIDE 0.9% 1,000 ML in EMPTY BAG 1 BAG IV SCH (00:33)
[2024-03-23] MEDS: ASPIRIN 325 MG TAB PO ONE (05:29)
[2024-03-23] MEDS: ATORVASTATIN 80 MG TAB PO ONE (05:29)
[2024-03-23 06:38] LABS: Glucose,Whole Blood 117 mg/dL (70-110)
[2024-03-23] MEDS ORDERED: HEPARIN SODIUM,PORCINE 10,000 UNIT in SODIUM CHLORIDE 0.9% 1,000 ML IRRIGATION PRN (07:00)
[2024-03-23] MEDS ORDERED: HEPARIN SODIUM,PORCINE (1 ML) 2,500 UNIT in SODIUM CHLORIDE 0.9% 250 ML IRRIGATION PRN (07:00)
[2024-03-23 11:58] LABS: Glucose,Whole Blood 126 mg/dL (70-110)
[2024-03-23] MEDS: fentaNYL (PF) 50 MCG/ML 2 ML AMP IVP ONE (14:48)
[2024-03-23] MEDS: MIDAZOLAM 2 MG/2 ML VIAL IVP ONE (14:48)
[2024-03-23] MEDS: LIDOCAINE 1% INJ 10MG/ML (20 ML MDV) SQ ONE (14:50)
[2024-03-23] MEDS: HEPARIN SODIUM 1,000 UN/ML (10ML VL) IVP ONE ×2 (14:52→15:11)
--- NOTE | 2024-03-23 15:21 | P.PN ---
Subjective Progress Note Date: 03/23/24 Hospital course: Patient is a 59 female with COPD, AAA, CAD, fibromyalgia, pacemaker presenting with chest pain. Patient states she was laying in bed last night around 10 AM and felt a pressure-like chest pain while at rest. Patient describes as a constant pressurelike pain with no radiation to the left arm, back, jaw, denies any tenderness on palpation. Inspiration or expiration does not make the pain worse. Patient denies any other exacerbating factors. Patient admits to feeling relieved after given nitroglycerin by EMS. She states the pain subsided at within less than 30 minutes. The patient denies nausea, vomiting, cough, hemoptysis, shortness of breath, abdominal pain. Patient denies any history of DVT or blood clots, denies calf tenderness. EKG independently interpreted no ST elevations, ST depression, T wave changes, rate, QTc CXR independently interpreted displays no acute cardiopulmonary process. Thoracic aorta CT displayed no signs of pulmonary embolism Troponin I <0.012 x 2, proBNP 242, lipase 144, PT 11.0, INR 1.0, APTT 23.3, BUN 29, creatinine 1.08, glucose 123. UA displays elevated hyaline casts, small leukocyte esterase T97.8 F, HI 50, RR 18, BP 147/84, O2 sat 92% on room air 03/21/2024: Patient seen and evaluated bedside. No acute events overnight. No acute complaints. She states her chest pain has improved. She has been ambulating across the hallways and denies any complaint of chest pain or shortne ss of breath. She is awaiting catheterization for Saturday. 03/22/2024: Patient continues to have intermittent chest discomfort overnight. Also having a mild headache today. Patient had a abnormal Lexiscan with concern for ischemia and is scheduled to undergo a cardiac catheterization tomorrow 03/23. Echocardiogram reveals an ejection fraction of 50 to 55% with preserved LV size systolic function. Electrolytes are within normal limits today with a BUN of 21.8 creatinine of 0.9. Hemoglobin A1c of 6.8. 03/23/2024: Patient seen and evaluated at bedside. No acute events overnight. No acute complaints. No complaints of active chest pain. She is scheduled for her heart catheterization today. Data received today: Pertinent Labs: Triglycerides 181, cholesterol 244, LDL 161, potassium 3.7, magnesium 2.2, BUN 25.9, creatinine 0.9 Review of systems: Pertinent positives and negatives as discussed in HPI, a complete review of systems was performed and all other systems are negative. Physical examination: Vital signs reviewed General: non toxic, no distress, appears at stated age, normal weight Derm: no unusual rashes/lesions, warm Head: atraumatic, normocephalic, symmetric Eyes: EOMI, anicteric sclera, pupils equal round reactive to light ENT: Nose and ears atraumatic Neck: No cervical lymphadenopathy, trachea midline, supple Mouth: no lip lesion, mucus membranes moist Cardiovascular: Pacemaker, S1S2 reg, no murmur, positive dorsalis pedis pulse bilateral, no edema Lungs: CTA bilateral, no rhonchi, no rales, no accessory muscle use Abdominal: soft, nontender to palpation, no guarding Ext: muscle strength 5 out of 5 in all 4 extremities grossly, no gross muscle atrophy Neuro: CN II-XI grossly intact, no gross focal neuro deficits Psych: Alert, oriented to person, place, and time Assessment/Plan: Patient is a 59 female with COPD, AAA, CAD, fibromyalgia, pacemaker presenting with chest pain. #. Chest pain Cardiac versus GI versus respiratory versus MSK EKG independently interpreted no ST elevations, ST depression, T wave changes, rate, QTc CXR independently interpreted displays no acute cardiopulmonary process. Thoracic aorta CT displayed abdominal aortic aneurysm mildly increased in size measuring at 3.2 x 3.6 cm from 2.9 x 3.5 cm previously, no dissection, stenosis or significant acute periaortic abnormality Heart score of 3 presents as a low risk of MACE (0.9-1.7%) HARI score of 12 presents as a low risk Wells score 0 Troponin I <0.012 x 2, proBNP 242, lactic acid 1.6 all within normal limits D-dimer elevated at 1.4 TSH 0.628 A1c and lipid panel pending Aspirin 81 mg p.o. daily Atorvastatin 40 mg nightly Echocardiogram pending Cardiac monitoring Cardiology consulted, [place] scan scheduled this morning. Results show sonographic abnormalities with possible reversibility along inferior apical wall and anterior lateral basal, possible multivessel ischemia Patient undergoing heart catheterization, will continue to follow post- procedure. Can be discharged if results are normal #. COPD (not in acute exacerbation) On 3 L nasal cannula Keep oxygen saturations between 88% to 92% Albuterol nebulized 2.5 mg inhalation 4 times daily as needed Symbicort 80-4.5 mcg 2 puff inhalation twice daily Continue with Trelegy #. Hypertension Carvedilol 12.5 mg p.o. twice daily Lisinopril 40 mg p.o. daily For Lasix 40 mg p.o. daily #. Type 2 diabetes Placed on insulin sliding scale subcu Accu-Cheks, monitor for hypoglycemia #. Neuropathy Continue gabapentin 4 pneumogram p.o. 3 times daily #. Anxiety/depression Continue Cymbalta 60 mg p.o. F: N/A E: Replete as needed N: Heart healthy diet A: Ambulatory DVT prophylaxis: Heparin 5000 unit SQ q8hr GI prophylaxis: Pepcid 20 mg p.o. twice daily The patient is admitted with an anticipated greater than 2 midnight stay for evaluation of chest pain. CODE STATUS: Full code Discussed with: Patient Anticipated discharge place: Home Objective - Vital Signs Vital signs: Vital Signs Temp 98 F 03/23/24 07:00 Pulse 51 L 03/23/24 07:00 Resp 16 03/23/24 08:00 BP 143/72 03/23/24 07:00 Pulse Ox 96 03/23/24 07:00 FiO2 Intake & Output 03/22/24 03/23/24 03/23/24 18:59 06:59 18:59 Intake Total 298 Balance 298 Intake: Oral 298 Other: Voiding Method Toilet # Voids 3 1 1 - Labs CBC & Chem 7: 03/20/24 02:40 03/22/24 05:40 Labs: Abnormal Lab Results - Last 24 Hours (Table) 03/22/24 03/22/24 03/23/24 Range/Units 17:37 20:27 06:36 POC Glucose (mg/dL) 131 H 252 H 117 H (70-110) mg/dL 03/23/24 Range/Units 11:56 POC Glucose (mg/dL) 126 H (70-110) mg/dL
[2024-03-23] MEDS: IOPAMIDOL-370 200ML BTL INJ ONE (15:22)
[2024-03-23] MEDS ORDERED: RX INFO: IV CONTRAST WAS GIVEN 1 EACH MISC MISCELLANE PRN (15:22)
[2024-03-23] MEDS: IV FLUID CONTINUATION 1,000 ML IV ONE (15:23)
--- NOTE | 2024-03-23 15:26 | P.PCN ---
Date of Procedure: 03/23/24 Operative Findings: CARDIAC CATHETERIZATION PERFORMING PHYSICIAN: Jitendra Serrano MD, RPVI PROCEDURE PERFORMED: 1. Selective right and left coronary angiogram and left heart catheterization 2. IFR of the RCA and LAD 3. Ultrasound-guided access of the right radial artery INDICATION: Chest discomfort concerning for angina COMPLICATION: None APPROACH: Right radial artery LEVEL OF SEDATION: Moderate with a sedation length of 31 minutes PROCEDURE DESCRIPTION: After obtaining an informed consent, the patient was brought to cardiac manager cath lab. Local anesthesia was performed using lidocaine subcutaneously. The right radial artery was cannulated using Seldinger technique, the guidewire passed easily, following that we advanced a 5-Green[place]ic sheath dilator assembly, the wire and dilator were removed and sheath was flushed. Following that, 2 mg of verapamil along with 5000 unit heparin were given. Selective right and left coronary angiogram using a 6-Greenlandic JR4 and JL 3.5 catheters. Following that we did left heart catheterization using 6-Greenlandic pigtail catheter. After that we decided to do an IFR of the RCA and LAD. After zeroing Dobler wire and equalized between the Doppler wire and guiding catheter which was JR4 initially the RCA was engaged and subsequently wired with IFR of 0.93. Subsequently we did equalized between the Doppler wire and guiding catheter for the left which was JL 3.5 short tip and subsequently left main was engaged and we did wired the LAD with IFR came in to be at 0.91 The procedure was completed there was no complication. SELECTIVE CORONARY ANGIOGRAM: The right coronary artery: Large-caliber vessel calcified vessel with intermediate lesion involving the midportion appears to be nonflow limiting by Doppler wire Left main: Calcified with mild disease only The left circumflex: Large caliber vessel nondominant vessel with no high-grade stenosis identified The left anterior descending artery: Large-caliber vessel with intermediate lesion involving the mid LAD documented to be nonflow limiting by Doppler wire HEMODYNAMICS: The LVEDP was 18 mmHg with no significant gradient across aortic valve CONCLUSION: 1. Intermediate lesion involving the RCA documented to be nonflow limiting by Doppler with IFR of 0.93 2. Intermediate lesion involving the mid LAD documented to be nonflow limiting by Doppler hours IFR of 0.91 POSTPROCEDURE MANAGEMENT: Medical treatment and risk factors modification
[2024-03-23] MEDS: SODIUM CHLORIDE 0.9% 1,000 ML IV SCH (17:01)
[2024-03-23 17:17] LABS: Glucose,Whole Blood 140 mg/dL (70-110)
[2024-03-23 19:48] LABS: Glucose,Whole Blood 205 mg/dL (70-110)
[2024-03-23 20:34] VITALS: RESP 16
[2024-03-24 02:00] VITALS: PULSE 53
[2024-03-24 05:54] LABS: Glucose,Whole Blood 105 mg/dL (70-110)
[2024-03-24 08:10] VITALS: BP 144/74; TEMP 98.3
[2024-03-24 08:45] LABS: BUN/Creat Ratio 21.62 Ratio (12.00-20.00); Blood Urea Nitrogen 17.3 mg/dL (9.0-27.0); Calcium 8.8 mg/dL (8.7-10.3); Carbon Dioxide 26.5 mmol/L (21.6-31.8); Chloride 104 mmol/L (96-109); Glucose 110 mg/dL (70-110); Magnesium 2.1 mg/dL (1.5-2.4); Potassium 3.9 mmol/L (3.5-5.5); Sodium 140 mmol/L (135-145)
--- NOTE | 2024-03-24 09:19 | P.PN ---
Subjective Progress Note Date: 03/24/24 Patient is a pleasant 59-year-old female who presented to the hospital with chest pain. Patient had an abnormal Lexiscan stress test indicative of possible ischemia, and is planning to undergo a heart cath tomorrow. Patient reports occasional on and off chest discomfort overnight. She reports a headache this morning. She otherwise denies shortness of breath, dizziness, and near syncope. Patient does report that her niece yesterday, which she states has been stressful for her. VITALS: Temp 97.7, pulse 50, respirations 18, blood pressure 170/78, O2 saturation 93% on room air TELEMETRY: Sinus mechanism LABS: No new labs since 03/21/202403/24 Yesterday, patient underwent cardiac catheterization with Dr. Serrano which revealed intermediate lesion involving the RCA documented to be nonflow limiting by Doppler with IFR of 0.93 and also an intermediate lesion involving the mid LAD documented to be nonflow limiting by Doppler with IFR of 0.91. Recommendations for medical management. Patient denies any chest pain, shortness of breath, lightheadedness or dizziness. Blood pressure 144/74, heart rate 53, pulse ox 95% on room air. Repeat blood work reveals creatinine 0.8, potassium 3.9. GENERAL: Well-appearing, well-nourished and in no acute distress. NECK: Supple without JVD or thyromegaly. LUNGS: Breath sounds clear to auscultation bilaterally. Respiration equal and unlabored. No wheezes, rales or rhonchi. HEART: Regular rate and rhythm without murmurs, rubs or gallops. S1 and S2 heard. EXTREMITIES: Normal range of motion, no edema. No clubbing or cyanosis. Peripheral pulses intact and strong. IMPRESSION: 1. Chest pain, with Lexiscan stress test revealing abnormalities with possible reversibility along the inferior apical wall and anterior lateral basal wall. 2. Coronary artery disease with intermediate disease in the proximal and mid RCA and intermediate disease of the LAD, per cath in 2017. Repeat cath reveals same results 3. History of severe coronary vasospasm and distal LAD 4. Hypertension 5. Hyperlipidemia 6. Diabetes 7. Sick sinus syndrome, status post dual-chamber permanent pacemaker 8. History of CVA 9. COPD 10. Nicotine dependence 11. Morbid obesity: BMI 44.8 PLAN: Continue patient on current cardiac medications: Aspirin 81 mg daily, atorvastatin 40 mg at bedtime, Coreg 12.5 mg twice daily, Lasix 40 mg daily, l isinopril 40 mg daily. Patient is cleared for discharge from cardiology and may follow-up in the office with Dr. Serrano in 1 week. Nurse practitioner note has been reviewed, I agree with documented findings and plan of care. Patient was seen and examined. Objective - Vital Signs Vital signs: Vital Signs Temp 98.3 F 03/24/24 07:00 Pulse 53 L 03/24/24 07:00 Resp 16 03/24/24 07:00 BP 144/74 03/24/24 07:00 Pulse Ox 95 03/24/24 07:00 FiO2 Intake & Output 03/23/24 03/24/24 03/24/24 18:59 06:59 18:59 Intake Total 168 560 Balance 168 560 Intake: IV 50 Oral 118 560 Other: Voiding Method Toilet # Voids 1 3 - Labs CBC & Chem 7: 03/20/24 02:40 03/24/24 05:49 Labs: Abnormal Lab Results - Last 24 Hours (Table) 03/23/24 03/23/24 03/23/24 Range/Units 11:56 17:15 19:48 POC Glucose (mg/dL) 126 H 140 H 205 H (70-110) mg/dL
[2024-03-24] MEDS: ASPIRIN 81 MG PO SCH (09:25)
--- NOTE | 2024-03-24 12:09 | P.DS ---
Providers Date of admission: 03/20/24 06:30 Discharge Diagnosis: Chest pain Hypertension Hyperlipidemia Type 2 diabetes History of CVA COPD Morbid obesity History of severe coronary vasospasm and distal LAD CAD with intermediate disease in the proximal and mid RCA and intermediate disease of the LAD, per cath in 2017 Neuropathy Anxiety Depression Hospital course: Patient is a 59 female with COPD, AAA, CAD, fibromyalgia, pacemaker presenting with chest pain. Patient states she was laying in bed last night around 10 AM and felt a pressure-like chest pain while at rest. Patient describes as a constant pressurelike pain with no radiation to the left arm, back, jaw, denies any tenderness on palpation. Inspiration or expiration does not make the pain worse. Patient denies any other exacerbating factors. Patient admits to feeling relieved after given nitroglycerin by EMS. She states the pain subsided at within less than 30 minutes. The patient denies nausea, vomiting, cough, hemoptysis, shortness of breath, abdominal pain. Patient denies any history of DVT or blood clots, denies calf tenderness. EKG independently interpreted no ST elevations, ST depression, T wave changes, rate, QTc CXR independently interpreted displays no acute cardiopulmonary process. Thoracic aorta CT displayed no signs of pulmonary embolism Troponin I <0.012 x 2, proBNP 242, lipase 144, PT 11.0, INR 1.0, APTT 23.3, BUN 29, creatinine 1.08, glucose 123. UA displays elevated hyaline casts, small leukocyte esterase T97.8 F, CT 50, RR 18, BP 147/84, O2 sat 92% on room air 03/21/2024: Patient seen and evaluated bedside. No acute events overnight. No acute complaints. She states her chest pain has improved. She has been ambulating across the hallways and denies any complaint of chest pain or shortness of breath. She is awaiting catheterization for Saturday. 03/22/2024: Patient continues to have intermittent chest discomfort overnight. Also having a mild headache today. Patient had a abnormal Lexiscan with concern for ischemia and is scheduled to undergo a cardiac catheterization tomorrow Friday 03/23. Echocardiogram reveals an ejection fraction of 50 to 55% with preserved LV size systolic function. Electrolytes are within normal limits today with a BUN of 21.8 creatinine of 0.9. Hemoglobin A1c of 6.8. 03/23/2024: Patient seen and evaluated at bedside. No acute events overnight. No acute complaints. No complaints of active chest pain. She is scheduled for her heart catheterization today. 03/24/2024: Patient seen and examined at bedside. Heart catheterization displayed. Patient being discharged with atorvastatin and aspirin. She is to follow-up with cardiology and her PCP. She is being discharged home. Vital signs reviewed and stable. Physical examination: Vital signs reviewed General: non toxic, no distress, appears at stated age, normal weight Derm: no unusual rashes/lesions, warm Head: atraumatic, normocephalic, symmetric Eyes: EOMI, anicteric sclera, pupils equal round reactive to light ENT: Nose and ears atraumatic Neck: No cervical lymphadenopathy, trachea midline, supple Mouth: no lip lesion, mucus membranes moist Cardiovascular: S1S2 reg, no murmur, positive dorsalis pedis pulse bilateral, no edema Lungs: CTA bilateral, no rhonchi, no rales, no accessory muscle use Abdominal: soft, nontender to palpation, no guarding Ext: muscle strength 5 out of 5 in all 4 extremities grossly, no gross muscle atrophy Neuro: CN II-XI grossly intact, no gross focal neuro deficits Psych: Alert, oriented to person, place, and time A total of greater than 30 minutes of time were spent preparing this complex discharge summary. Patient was discharge on March 14, 2024 at 9:13 AM. Expected date of discharge: 03/24/24 Attending physician: Kimi Broussard MD Consults: 03/20/24 06:26 Consult Physician Routine Consulting Provider: Viktor Mclaughlin Consult Reason/Comments: Chest pain Do you want consulting provider notified?: Yes, Notify in am Primary care physician: Adam Fernandez Patient Condition at Discharge: Stable Plan - Discharge Summary Discharge Rx Participant: Yes New Discharge Prescriptions: New Aspirin 81 mg PO DAILY #30 tab Atorvastatin [Lipitor] 40 mg PO HS #30 tab Continue Albuterol Inhaler [Ventolin Hfa Inhaler] 1 - 2 puff INHALATION RT-Q6H PRN PRN Reason: Shortness Of Breath Naproxen [Naprosyn] 500 mg PO BID Magnesium Oxide [Mag-Ox] 400 mg PO DAILY hydroCHLOROthiazide [Hydrodiuril] 50 mg PO DAILY carvediloL [Coreg] 12.5 mg PO BID DULoxetine HCL [Cymbalta] 60 mg PO DAILY Fluticasone Nasal [place] [Flonase Nasal [place]] 2 spray EA NOSTRIL BID PRN PRN Reason: Congestion Budesonide/Formoterol Fumarate [Symbicort 80-4.5 Mcg Inhaler] 2 puff INHALATION RT-BID Baclofen 10 mg PO BID PRN PRN Reason: Muscle Spasm lisinopriL 40 mg PO DAILY Furosemide [Lasix] 40 mg PO DAILY Gabapentin [Neurontin] 400 mg PO TID Nitroglycerin Sl Tabs [Nitrostat] 0.4 mg SUBLINGUAL Q5M PRN PRN Reason: Chest Pain Fluticasone/Umeclidin/Vilanter [Trelegy Ellipta 100-62.5-25] 1 puff INHALATION RT-DAILY Discharge Medication List Albuterol Inhaler [Ventolin Hfa Inhaler] 1 - 2 puff INHALATION RT-Q6H PRN 03/24/17 [History] Furosemide [Lasix] 40 mg PO DAILY 10/31/22 [History] lisinopriL 40 mg PO DAILY 10/31/22 [History] Baclofen 10 mg PO BID PRN 03/20/24 [History] Budesonide/Formoterol Fumarate [Symbicort 80-4.5 Mcg Inhaler] 2 puff INHALATION RT-BID 03/20/24 [History] DULoxetine HCL [Cymbalta] 60 mg PO DAILY 03/20/24 [History] Fluticasone Nasal [place] [Flonase Nasal [place]] 2 spray EA NOSTRIL BID PRN 03/20/24 [History] Fluticasone/Umeclidin/Vilanter [Trelegy Ellipta 100-62.5-25] 1 puff INHALATION RT-DAILY 03/20/24 [History] Gabapentin [Neurontin] 400 mg PO TID 03/20/24 [History] Magnesium Oxide [Mag-Ox] 400 mg PO DAILY 03/20/24 [History] Naproxen [Naprosyn] 500 mg PO BID 03/20/24 [History] Nitroglycerin Sl Tabs [Nitrostat] 0.4 mg SUBLINGUAL Q5M PRN 03/20/24 [History] carvediloL [Coreg] 12.5 mg PO BID 03/20/24 [History] hydroCHLOROthiazide [Hydrodiuril] 50 mg PO DAILY 03/20/24 [History] Aspirin 81 mg PO DAILY #30 tab 03/24/24 [Rx] Atorvastatin [Lipitor] 40 mg PO HS #30 tab 03/24/24 [Rx] Follow up Appointment(s)/Referral(s): Jitendra Serrano MD [STAFF PHYSICIAN] - 1 Week (Office will call with appointment time and date) Adam Fernandez MD [Primary Care Provider] - 1-2 days Discharge Disposition: HOME SELF-CARE
== END 2024-03-24 11:14 | disposition home or self-care (01) | DRG 287 ==
LOC: EC 01:57 → 6NMEDSUR 06:29 → OBSVTOIN 06:30 → 6NMEDSUR 14:34
PROVIDERS: ADMIT Internal Medicine; ATTEND Internal Medicine
PROC: 4A02XM4 Measurement of Cardiac Total Activity, External Approach (ICD-10-PCS; 2024-03-20)
PROC: 4A033BC Measurement of Arterial Pressure, Coronary, Percutaneous Approach (ICD-10-PCS; 2024-03-23)
PROC: 4A023N7 Measurement of Cardiac Sampling and Pressure, Left Heart, Percutaneous Approach (ICD-10-PCS; principal; 2024-03-23 08:15)
PROC: B2111ZZ Fluoroscopy of Multiple Coronary Arteries using Low Osmolar Contrast (ICD-10-PCS; 2024-03-23 08:15)
DX: I25.110 Atherosclerotic heart disease of native coronary artery with unstable angina pectoris (principal); Z68.41 Body mass index [BMI] 40.0-44.9, adult; E11.42 Type 2 diabetes mellitus with diabetic polyneuropathy; E66.01 Morbid (severe) obesity due to excess calories; E78.5 Hyperlipidemia, unspecified; F17.210 Nicotine dependence, cigarettes, uncomplicated; F32.A Depression, unspecified; F41.9 Anxiety disorder, unspecified; G47.30 Sleep apnea, unspecified; I10 Essential (primary) hypertension; I25.2 Old myocardial infarction; I49.5 Sick sinus syndrome; I71.40 Abdominal aortic aneurysm, without rupture, unspecified; M79.7 Fibromyalgia; Z79.4 Long term (current) use of insulin; Z79.51 Long term (current) use of inhaled steroids; Z79.84 Long term (current) use of oral hypoglycemic drugs; Z86.73 Personal history of transient ischemic attack (TIA), and cerebral infarction without residual deficits; Z90.710 Acquired absence of both cervix and uterus; Z79.82 Long term (current) use of aspirin; Z79.899 Other long term (current) drug therapy; Z88.0 Allergy status to penicillin; Z88.5 Allergy status to narcotic agent; Z91.018 Allergy to other foods; Z95.810 Presence of automatic (implantable) cardiac defibrillator
CPT/HCPCS: 36415; 71046; 71275; 74174; 78452; 80048; 80053; 80061; 81001; 82150; 83036; 83605; 83690; 83735; 83880; 84443; 84484; 85025; 85379; 85610; 85730; 93005; 93017; 93306; 93458; 93799; 99285

== ENCOUNTER 2024-10-30 02:36 | Observation (INO) | payer MEDICARE, OTHER ==
--- NOTE | 2024-10-30 02:56 | ED ---
General Adult HPI - General Source: patient, EMS Mode of arrival: EMS <Keshawn Tobar - Last Filed: 10/30/24 07:10> <Wilfredo Darling - Last Filed: 10/30/24 09:06> - General Chief complaint: Chest Pain Stated complaint: Chest Pain Time Seen by Provider: 10/30/24 02:39 - History of Present Illness Initial comments: Dictation was produced using Expand[employer] dictation software. please excuse any grammatical, word or spelling errors. Chief Complaint: 59-year-old female presents emergency department chest pain History of Present Illness: Patient 59-year-old female transferred from [facility] she was seen at that outside emergency department for evaluation of atypical pleuritic chest pain. She had a D-dimer was elevated at 1.3. They wer e having difficulty getting IV access for CT angio. Patient refused any further attempts requested she be transferred. The ROS documented in this emergency department record has been reviewed and c onfirmed by me. Those systems with pertinent positive or negative responses have been documented in the HPI. All other systems are other negative and/or noncontributory. (Keshawn Tobar) - Related Data Home Medications Medication Instructions Recorded Confirmed Albuterol Inhaler [Ventolin Hfa 1 - 2 puff INHALATION RT-Q6H PRN 03/24/17 03/20/24 Inhaler] Furosemide [Lasix] 40 mg PO DAILY 10/31/22 03/20/24 lisinopriL 40 mg PO DAILY 10/31/22 03/20/24 Baclofen 10 mg PO BID PRN 03/20/24 03/20/24 Budesonide/Formoterol Fumarate 2 puff INHALATION RT-BID 03/20/24 03/20/24 [Symbicort 80-4.5 Mcg Inhaler] DULoxetine HCL [Cymbalta] 60 mg PO DAILY 03/20/24 03/20/24 Fluticasone Nasal [place] [Flonase 2 spray EA NOSTRIL BID PRN 03/20/24 03/20/24 Nasal [place]] Fluticasone/Umeclidin/Vilanter 1 puff INHALATION RT-DAILY 03/20/24 03/20/24 [Trelegy Ellipta 100-62.5-25] Gabapentin [Neurontin] 400 mg PO TID 03/20/24 03/20/24 Magnesium Oxide [Mag-Ox] 400 mg PO DAILY 03/20/24 03/20/24 Naproxen [Naprosyn] 500 mg PO BID 03/20/24 03/20/24 Nitroglycerin Sl Tabs [Nitrostat] 0.4 mg SUBLINGUAL Q5M PRN 03/20/24 03/20/24 carvediloL [Coreg] 12.5 mg PO BID 03/20/24 03/20/24 hydroCHLOROthiazide [Hydrodiuril] 50 mg PO DAILY 03/20/24 03/20/24 Previous Rx's Medication Instructions Recorded Aspirin 81 mg PO DAILY #30 tab 03/24/24 Atorvastatin [Lipitor] 40 mg PO HS #30 tab 03/24/24 Allergies Allergy/AdvReac Type Severity Reaction Status Date / Time codeine Allergy Dyspnea Verified 10/30/24 02:46 livier Allergy Anaphylaxis Verified 10/30/24 02:46 Melon Allergy Anaphylaxis Verified 10/30/24 02:46 morphine Allergy Rash/Hives Verified 10/30/24 02:46 Penicillins Allergy Dyspnea Verified 10/30/24 02:46 alprazolam [From Xanax] AdvReac See comment Verified 10/30/24 02:46 Review of Systems ROS Other: All systems not noted in ROS Statement are negative. <Keshawn Tobar - Last Filed: 10/30/24 07:10> ROS Other: All systems not noted in ROS Statement are negative. <Wilfredo Darling - Last Filed: 10/30/24 09:06> ROS Statement: Those systems with pertinent positive or pertinent negative responses have been documented in the HPI. Past Medical History Past Medical History: Asthma, Coronary Artery Disease (CAD), Chest Pain / Angina, COPD, Diabetes Mellitus, Fibromyalgia, Hypertension, Myocardial Infarction (MO), Sleep Apnea/CPAP/BIPAP Additional Past Medical History / Comment(s): MS, neuropathy, arthritis in back, knees, ankles, feet. VERTIGO. fibromyalgia, sleep apnea with cpap use, abd aneurysm Last Myocardial Infarction Date:: 2004 History of Any Multi-Drug Resistant Organisms: None Reported Past Surgical History: Appendectomy, Cholecystectomy, Hysterectomy, Pacemaker, Tonsillectomy Additional Past Surgical History / Comment(s): Bladder SUSPENSION. LEFT carpal tunnel. Cyst removed from left middle finger Past Anesthesia/Blood Transfusion Reactions: Previous Problems w/ Anesthesia, Motion Sickness Additional Past Anesthesia/Blood Transfusion Reaction / Comment(s): HAS BEEN COMBATIVE POST GENERAL ANESTHESIA Type of Cardiac Device: Permanent Pacemaker Device Placement Date:: 2017 Past Psychological History: Depression Smoking Status: Current every day smoker Past Alcohol Use History: Occasional Past Drug Use History: Marijuana - Past Family History Mother Family Medical History: Diabetes Mellitus Additional Family Medical History / Comment(s): heart problems Father Family Medical History: Diabetes Mellitus Additional Family Medical History / Comment(s): heart problems <Keshawn Tobar - Last Filed: 10/30/24 07:10> General Exam <Keshawn Tobar - Last Filed: 10/30/24 07:10> - General Exam Comments Initial Comments: PHYSICAL EXAM: General Impression: Alert and oriented x3, not in acute distress HEENT: Normocephalic atraumatic, extra-ocular movements intact, pupils equal and reactive to light bilaterally, mucous membranes moist. Cardiovascular: Heart regular rate and rhythm Chest: Able to complete full sentences, no retractions, no tachypnea Abdomen: abdomen soft, non-tender, non-distended, no organomegaly Musculoskeletal: Pulses present and equal in all extremities, no peripheral edema Motor: no focal deficits noted Neurological: CN II-XII grossly intact, no focal motor or sensory deficits noted Skin: Intact with no visualized rashes Psych: Normal affect and mood (Keshawn Tobar) Course Vital Signs 10/30/24 10/30/24 10/30/24 02:46 06:30 06:59 Temperature 97.7 F 97.8 F Pulse Rate 49 L 50 L Respiratory 18 20 Rate Blood Pressure 114/59 162/67 O2 Sat by Pulse 98 99 Oximetry 10/30/24 08:51 Temperature 97.7 F Pulse Rate 49 L Respiratory 18 Rate Blood Pressure 164/78 O2 Sat by Pulse 98 Oximetry EKG Findings - EKG Comments: EKG Findings:: My EKG interpretation: Ventricular rate 53, interpretation limited due to artifact. ME interval 250, cures 121, QTc 452. Overall this EKG is nonspecific. <Keshawn Tobar - Last Filed: 10/30/24 07:10> Medical Decision Making <Keshawn Tobar - Last Filed: 10/30/24 07:10> <DarlingWilfredo - Last Filed: 10/30/24 09:06> - Medical Decision Making Was pt. sent in by a medical professional or institution (, PA, INTERNATIONAL MARKETING MANAGER, urgent care, hospital, or chcf...) When possible be specific @ -No Did you speak to anyone other than the patient for history (EMS, parent, family, police, friend...)? What history was obtained from this source @ -Spoke with transferring physician from outside emergency department Did you review nursing and triage notes (agree or disagree)? Why? @ -I reviewed and agree with nursing and triage notes Were old charts reviewed (outside hosp., previous admission, EMS record, old EKG, old radiological studies, urgent care reports/EKG's, ch[facility] records)? Report findings @ -Transfer documents was reviewed Differential Diagnosis (chest pain, altered mental status, abdominal pain women, abdominal pain men, vaginal bleeding, musculoskeletal, weakness, fever, dyspnea, syncope, headache, dizziness, GI bleed, back pain, seizure, CVA, palpatations, mental health)? @ -Differential Chest Pain: Stable Angina, Unstable Angina, STEMI, NSTEMI Aortic Dissection, Pneumothorax, Musculoskeletal, Esophageal Spasm GERD, Cholecystitis, Pancreatitis, Zoster, this is not meant to be an all-inclusive list. EKG interpreted by me (3pts min.). @ -See above X-rays interpreted by me (1pt min.). @ -None done CT interpreted by me (1pt min.). @ -None done U/S interpreted by me (1pt. min.). @ -None done What testing was considered but not performed or refused? (CT, X-rays, U/S, labs)? Why? @ -None What meds were considered but not given or refused? Why? @ -None Was smoking cessation discussed for >3mins.? @ -No Were there social determinants of health that impacted care today? How? (Homelessness, low income, unemployed, alcoholism, drug addiction, transportation, low edu. Level, literacy, decrease access to med. care, longterm, rehab)? @ -No Was there de-escalation of care discussed even if they declined (Discuss DNR or withdrawal of care, Hospice)? DNR status @ -No What co-morbidities impacted this encounter? (DM, HTN, Smoking, COPD, CAD, Cancer, CVA, ARF, Chemo, Hep., AIDS, mental health diagnosis, sleep apnea, morbid obesity)? @ -None Was patient admitted / discharged? Hospital course, mention meds given and route, prescriptions, significant lab abnormalities, going to OR and other pertinent info. @ -59-year-old female presents emergency department after initially presenting to outside emergency department for chest pain. According to transferring ER physician they were unable to obtain IV access. It sounds like they were going to attempt further however patient refused and preferred to be transferred to our facility due to establish care with cardiology. Patient well-appearing at the bedside. Transfer documentation reviewed. No significant abnormalities except for elevated D-dimer. Did you discuss the management of the patient with other professionals (professionals i.e. , PA, INTERNATIONAL MARKETING MANAGER, lab, RT, psych nurse, home health care social worker, hand scudder, teacher, fisheries enforcement officer, case management coordinator)? Give summary @ -No Was critical care preformed (if so, how long)? @ -No Undiagnosed new problem with uncertain prognosis? @ -No Drug Therapy requiring intensive monitoring for toxicity (Heparin, Nitro, Insulin, Cardizem)? @ -No Were any procedures done? @ -No Diagnosis/symptom? Acute, or Chronic, or Acute on Chronic? Uncomplicated (without systemic symptoms) or Complicated (systemic symptoms)? @ -Chest pain, elevated D-dimer Side effects of treatment? @ -No Exacerbation, Progression, or Severe Exacerbation? @ -No Poses a threat to life or bodily function? How? (Chest pain, [place], [place], pneumonia, PE, COPD, DKA, ARF, appy, cholecystitis, CVA, Diverticulitis, Homicidal, Suicidal, threat to staff... and all critical care pts) @ -No Patient care signed out to Dr. Darling at 7:00 AM (Keshawn Tobar) Chart reviewed from [facility] Patient reevaluated and resting comfortably in bed. Patient states she has right-sided chest discomfort with associated dyspnea. Dyspnea does worsen with exertion as well as orthopnea. Discomfort feels like pressure/sharp. Discomfort does worsen with cough however patient is not coughing much. CT scan of the chest interpreted myself nondiagnostic for pulmonary embolism. Concern for some cardiomegaly and alveolar edema. Patient does have history of pacemaker and CHF Patient is updated on results and plan. Case was beryl in detail with Dr. Connors who will admit covering Dr. Sepulveda. He does request echo, VQ scan and Dopplers. Diagnosis: Chest pain Acuity: Acute Admission orders written. Patient updated on plan. Threat to cardiac function (Wilfredo Darling) - Lab Data Lab Results 10/30/24 Range/Units 03:55 Troponin I <0.012 (0.000-0.034) ng/mL Disposition <Keshawn Tobar - Last Filed: 10/30/24 07:10> Is patient prescribed a controlled substance at d/c from ED?: No Time of Disposition: 09:06 <Wilfredo Darling - Last Filed: 10/30/24 09:06> Clinical Impression: Chest pain Disposition: ADMITTED IP TO THIS HOSP Referrals: Lane Sepulveda MD [Primary Care Provider] - 1-2 days
--- NOTE | 2024-10-30 08:14 | CT ---
EXAMINATION TYPE: CT angio chest DATE OF EXAM: 10/30/2024 COMPARISON: CT chest October 24, 2017 CLINICAL INDICATION: Female, 59 years old with history of positive D-dimer, Chest pain., TECHNIQUE: CTA scan of the thorax is performed with IV Contrast, patient injected with 80ml mL of Isovue 370, pu lmonary embolism protocol. MIP Images are created on CT scanner and reviewed. CT DLP: 799.8 mGycm. Automated Exposure Control for Dose Reduction was Utilized. FINDINGS: LUNGS: Overall mosaic attenuation. No suspicious focal consolidation. No pleural effusion or pneumoth orax seen bilaterally. HEART: Significant cardiomegaly with dual lead pacemaker. Moderate to severe coronary artery calcific ation. Lipomatous hypertrophy of the intra-arterial septum. MEDIASTINUM: Markedly suboptimal study with more dense contrast in the aorta. No aortic dissection. L ittle contrast in the pulmonary arteries. Non diagnostic for acute pulmonary embolism. No pericardia l effusion is seen. Prominent mediastinal lymph nodes. Enlarged main pulmonary artery suggests underl javi pulmonary artery hypertension. OTHER: Heterogeneous 5.3 cm left adrenal mass similar in size to prior CT favored benign based on sta bility. Cholecystectomy clips are noted. IMPRESSION: 1. Suboptimal, nondiagnostic for evaluation for acute pulmonary embolism. Consider repeat CT in 24 ho urs time after hydration if clinical suspicion persists. 2. Cardiomegaly with suspected mild to moderate bilateral alveolar edema. Correlate for suspected CHF exacerbation/fluid overload state. [facility], , 10/30/2024 8:11 AM
[2024-10-30] MEDS: ASPIRIN 81 MG PO STA (10:02)
[2024-10-30] MEDS: FUROSEMIDE 10 MG/ML 4 ML VIAL IV STA (10:03)
--- NOTE | 2024-10-30 10:12 | US ---
EXAMINATION TYPE: US venous doppler duplex LE BI DATE OF EXAM: 10/30/2024 9:09 AM COMPARISON: 11/10/2012 CLINICAL INDICATION: Female, 59 years old with history of ave; Chest pain - patient not able to stay awake to answer Hx questions , Pain TECHNIQUE: The lower extremity deep venous system is examined utilizing real time linear array sonog cherrie with graded compression, color doppler sonography, and spectral doppler. SIDE PERFORMED: Bilateral FINDINGS: VESSELS IMAGED: Common Femoral Vein Deep Femoral Vein Greater Saphenous Vein * Femoral Vein Popliteal Vein Small Saphenous Vein * Proximal Calf Veins (* superficial vessels) Right Leg: Negative for DVT, Color Doppler imaging shows patency of the vessels. Spectral waveforms are within normal limits. Left Leg: Negative for DVT, Color Doppler imaging shows patency of the vessels. Spectral waveforms a re within normal limits. Multiple round subcentimeter hypoechoic lymph nodes seen bilateral groin. IMPRESSION: No ultrasound evidence for acute deep venous thrombosis. [facility], , 10/30/2024 10:10 AM
[2024-10-30] MEDS ORDERED: ALBUTEROL NEBULIZED 2.5 MG/3 ML INHALATION PRN (10:13)
[2024-10-30] MEDS: NICOTINE 21MG/24HR PATCH TRANSDERM SCH (12:04)
[2024-10-30] MEDS: ENOXAPARIN 40 MG/0.4 ML SYRINGE SQ SCH (12:04)
[2024-10-30] MEDS: FUROSEMIDE 40 MG TAB PO SCH (12:04)
[2024-10-30] MEDS: NITROGLYCERIN OINT 1 INCH/GM PACKET TOPICAL SCH (12:04)
[2024-10-30] MEDS: CITALOPRAM HYDROBROMIDE 20 MG TAB PO SCH (12:04)
[2024-10-30] MEDS: DULoxetine HCL 60 MG CAPSULE.DR PO SCH (12:05)
[2024-10-30] MEDS: lisinopriL 20 MG TAB PO SCH (12:05)
[2024-10-30] MEDS: FAMOTIDINE 20 MG TAB PO SCH (12:05)
[2024-10-30] MEDS: amLODIPine 10 MG TAB PO SCH (12:05)
[2024-10-30] MEDS: GABAPENTIN 400 MG CAP PO SCH (12:05)
[2024-10-30] MEDS: BACLOFEN 10 MG TAB PO SCH (12:05)
[2024-10-30] MEDS: CHLORTHALIDONE 25 MG TAB PO SCH (12:06)
[2024-10-30] MEDS: buPROPion SR 150 MG TABLET.ER PO SCH (12:06)
--- NOTE | 2024-10-30 13:52 | NM ---
EXAMINATION TYPE: NM pul vent and perfuse DATE OF EXAM: 10/30/2024 CLINICAL INDICATION: Female, 59 years old with history of ave; COMPARISON: CTA chest from same day TECHNIQUE: Utilizing inhalation of 70.7 mCi Tc 99m DTPA aerosol and intravenous injection of 5.44 mC i of Tc 99m MAA, ventilation and perfusion images are acquired post injection in multiple projections . FINDINGS: Small matching defects. There is no evidence of mismatched defects. IMPRESSION: Low scintigraphic evidence for acute pulmonary embolism. [email or web address] [facility], , 10/30/2024 1:49 PM
--- NOTE | 2024-10-30 16:32 | P.HPIM ---
History of Present Illness H&P Date: 10/30/24 Chief Complaint: Chest wall pain This is a 59-year-old patient, follows with Dr. Lane Sepulveda. Chronic medical conditions include COPD, diabetes, fibromyalgia, essential hypertension, obstructive sleep apnea does not use CPAP. Denies CAD. Multiple sclerosis. Neuropathy arthritis. Pacemaker. Patient presents with chest pain. Somewhat more on the right side lateral to the sternal bone and along the lower end of right rib cage. Present. But constant. Worse with body movement. Patient did take a fall about 2 weeks ago face down. But the pain only started 2 days ago. Patient initially presented to [facility] where she was transferred here. Patient does use a walker. And is a smoker. Review of systems: GEN.: A bit tired EYES: None HEENT: None NECK: None RESPIRATORY: None CARDIOVASCULAR: [As above GASTROINTESTINAL: None GENITOURINARY: None MUSCULOSKELETAL: As above, joint pain e LYMPHATICS: None HEMATOLOGICAL: None PSYCHIATRY: None NEUROLOGICAL: Does use a walker Social history: Lives alone. Does use a walker. Smoking a pack a day for about 50 years Physical examination: VITAL SIGNS: 97.7, 49, 18, 164 x 78, 98% room air GENERAL: [BMI 47.6, lying bed awake not in distress. EYES: Pupils equal. Conjunctiva tato l. HEENT: External appearance of nose and ears normal, oral cavity grossly normal. NECK: JVD unable to assess masses not palpable. HEART: Heart sounds muffled; no edema. LUNGS: Respiratory rate increased, diminished breath sound. ABDOMEN: Soft, nontender, liver spleen not palpable, no masses palpable. PSYCH: Alert and oriented x3; mood and affect tato l. MUSCULOSKELETAL:No Clubbing/cyanosis;muscles-grossly intact. Reproducible chest pain the right costochondral junction in the mid zone. And some on the lower end of rib cage Darrel medially NEUROLOGICAL: Cranial nerves grossly intact; no facial asymmetry, power and sensation grossly intact. LYMPHATICS: No lymph nodes palpable in the axilla and neck INVESTIGATIONS, reviewed in the clinical context: Troponin I x 3 less than 0.012 EKG tracing personally reviewed by me-atrial pacemaker Chest CTA: Not suboptimal lung Didox take for PE. Some cardiomegaly. Venous Doppler: Right and left foot negative for DVT VQ scan: No evidence of PE Assessment plan: - Anterior chest wall pain. Note that patient had a fall about 2 weeks ago. About 2 days ago started noticing pain on the right side. No consult. Worse with body movement. Tender at the right costochondral junction and in the medial part of the right sided rib cage. Could be musculoskeletal. Given cardiac risk factors cardiology was consulted - Depression Celexa 20 mg a day. Cymbalta 60 mg a day. Wellbutrin - Hyperlipidemia Lipitor 40 mg nightly - Chronic nicotine dependence cigarette smoker Nicotine patch - Peripheral neuropathy Neurontin - Morbid obesity BMI 47.6 Weight loss measures - Primary osteoarthritis Tylenol as needed - Essential hypertension Lisinopril 40 mg a day, amlodipine 10 mg a day, Coreg 12.5 p.o. twice daily hydralazine 50 mg 3 times daily - COPD in a current smoker Trelegy Ellipta inhaler -Full code Care was discussed with patient. Home medications resumed. Past Medical History Past Medical History: Asthma, Coronary Artery Disease (CAD), Chest Pain / Angina, COPD, Diabetes Mellitus, Fibromyalgia, Hypertension, Myocardial Infarction (MT), Sleep Apnea/CPAP/BIPAP Additional Past Medical History / Comment(s): MS, neuropathy, arthritis in back, knees, ankles, feet. VERTIGO. fibromyalgia, sleep apnea with cpap use, abd aneurysm Last Myocardial Infarction Date:: 2004 History of Any Multi-Drug Resistant Organisms: None Reported Past Surgical History: Appendectomy, Cholecystectomy, Hysterectomy, Pacemaker, Tonsillectomy Additional Past Surgical History / Comment(s): Bladder SUSPENSION. LEFT carpal tunnel. Cyst removed from left middle finger Past Anesthesia/Blood Transfusion Reactions: Previous Problems w/ Anesthesia, Motion Sickness Additional Past Anesthesia/Blood Transfusion Reaction / Comment(s): HAS BEEN COMBATIVE POST GENERAL ANESTHESIA Type of Cardiac Device: Permanent Pacemaker Device Placement Date:: 2017 Past Psychological History: Depression Smoking Status: Current every day smoker Past Alcohol Use History: Occasional Past Drug Use History: Marijuana - Past Family History Mother Family Medical History: Diabetes Mellitus Additional Family Medical History / Comment(s): heart problems Father Family Medical History: Diabetes Mellitus Additional Family Medical History / Comment(s): heart problems Medications and Allergies Home Medications Medication Instructions Recorded Confirmed Type Albuterol Inhaler [Ventolin Hfa 1 - 2 puff INHALATION RT-Q6H PRN 03/24/17 10/30/24 History Inhaler] Furosemide [Lasix] 40 mg PO DAILY 10/31/22 10/30/24 History lisinopriL 40 mg PO DAILY 10/31/22 10/30/24 History DULoxetine HCL [Cymbalta] 60 mg PO DAILY 03/20/24 10/30/24 History Fluticasone/Umeclidin/Vilanter 1 puff INHALATION RT-DAILY 03/20/24 10/30/24 History [Trelegy Ellipta 100-62.5-25] Gabapentin [Neurontin] 400 mg PO TID 03/20/24 10/30/24 History carvediloL [Coreg] 12.5 mg PO BID 03/20/24 10/30/24 History Atorvastatin [Lipitor] 40 mg PO HS #30 tab 03/24/24 10/30/24 Rx Acetaminophen Tab [Tylenol] 650 mg PO Q4H PRN 10/30/24 10/30/24 History Baclofen 5 mg PO BID 10/30/24 10/30/24 History Chlorthalidone 25 mg PO DAILY 10/30/24 10/30/24 History Citalopram Hydrobromide [CeleXA] 20 mg PO DAILY 10/30/24 10/30/24 History Dulaglutide [Trulicity] 1.5 mg SQ SA 10/30/24 10/30/24 History Famotidine [Pepcid] 20 mg PO BID 10/30/24 10/30/24 History Nicotine 21Mg/24Hr Patch [Habitrol] 1 patch TRANSDERM DAILY 10/30/24 10/30/24 History amLODIPine [Norvasc] 10 mg PO DAILY 10/30/24 10/30/24 History buPROPion SR [Wellbutrin SR] 150 mg PO BID 10/30/24 10/30/24 History hydrALAZINE HCL [Apresoline] 50 mg PO TID 10/30/24 10/30/24 History Allergies Allergy/AdvReac Type Severity Reaction Status Date / Time codeine Allergy Dyspnea Verified 10/30/24 09:31 livier Allergy Anaphylaxis Verified 10/30/24 09:31 Melon Allergy Anaphylaxis Verified 10/30/24 09:31 morphine Allergy Rash/Hives Verified 10/30/24 09:31 Penicillins Allergy Dyspnea Verified 10/30/24 09:31 alprazolam [From Xanax] AdvReac See comment Verified 10/30/24 09:31 Physical Exam Vitals: Vital Signs Temp Pulse Resp BP Pulse Ox 10/30/24 12:08 50 L 18 112/50 98 10/30/24 10:06 49 L 18 143/125 98 10/30/24 08:51 97.7 F 49 L 18 164/78 98 10/30/24 06:59 97.8 F 10/30/24 06:30 50 L 20 162/67 99 10/30/24 02:46 97.7 F 49 L 18 114/59 98 Intake and Output 10/30/24 10/30/24 10/30/24 06:59 14:59 22:59 Output Total 3000 Balance -3000 Output: Urine 3000 Other: Weight 154.675 kg
[2024-10-30] MEDS: ACETAMINOPHEN TAB 325 MG TAB PO PRN (16:33)
--- NOTE | 2024-10-30 17:22 | CA ---
Transthoracic Echo Report Name: Jenny Simmons Age: 59 Gender: F : 1965 Exam Date: 10/30/2024 11:42 Exam Location: [facility] Ht (in): 71 Wt (lb): 341 Ordering Physician: Wilfredo Darling DO Attending/Referring Phys: Interdisciplinary Professor Cadence Meyers RDCS Procedure CPT: Indications: CP Cardiac Hx: Technical Quality: Fair Contrast 1: Total Dose (mL): Contrast 2: Total Dose (mL): MEASUREMENTS (Male / Female) Normal Values 2D ECHO LV Diastolic Diameter PLAX 5.2 cm 4.2 - 5.9 / 3.9 - 5.3 cm LV Systolic Diameter PLAX 4.2 cm IVS Diastolic Thickness 1.3 cm 0.6 - 1.0 / 0.6 - 0.9 cm LVPW Diastolic Thickness 0.9 cm 0.6 - 1.0 / 0.6 - 0.9 cm LV Relative Wall Thickness 0.4 LVOT Diameter 2.2 cm Aortic Root Diameter 2.9 cm LV Diastolic Volume MOD BP 157.8 cm??? 67 - 155 / 56 - 104 cm??? LV Systolic Volume MOD BP 70.4 cm??? 22 - 58 / 19 - 49 cm??? LV Ejection Fraction MOD BP 55.4 % >= 55 % LV Cardiac Index MOD BP 1526.8 cm???/min???m??? LV Diastolic Volume MOD 4C 190.1 cm??? LV Systolic Volume MOD 4C 72.0 cm??? LV Ejection Fraction MOD 4C 62.1 % LV Cardiac Index MOD 4C 2063.5 cm???/min???m??? LV Diastolic Length 4C 9.7 cm LV Systolic Length 4C 7.5 cm LV Diastolic Volume MOD 2C 125.9 cm??? LV Systolic Volume MOD 2C 65.3 cm??? LV Ejection Fraction MOD 2C 48.1 % LV Cardiac Index MOD 2C 1058.6 cm???/min???m??? LV Diastolic Length 2C 9.2 cm LV Systolic Length 2C 8.0 cm LA Volume 91.6 cm??? 18 - 58 / 22 - 52 cm??? LA Volume Index 32.0 cm???/m??? 16 - 28 cm???/m??? Ascending Aorta Diameter 4.1 cm DOPPLER AV Peak Velocity 181.6 cm/s AV Peak Gradient 13.2 mmHg AV Mean Velocity 126.3 cm/s AV Mean Gradient 7.0 mmHg AV Velocity Time Integral 37.2 cm LVOT Peak Velocity 137.6 cm/s LVOT Peak Gradient 7.6 mmHg LVOT Velocity Time Integral 29.0 cm LVOT Stroke Volume 114.0 cm??? LVOT Stroke Volume Index 43.1 ml/m??? LVOT Cardiac Index 1992.1 cm???/min???m??? AV Area Cont Eq vti 3.1 cm??? AV Area Cont Eq pk 3.0 cm??? MV Area PHT 2.4 cm??? Mitral E Point Velocity 56.6 cm/s Mitral A Point Velocity 88.1 cm/s Mitral E to A Ratio 0.6 MV Deceleration Time 316.4 ms Right Atrial Pressure 5.0 mmHg Pulmonary Artery Systolic Pressu 5.0 mmHg Right Ventricular Systolic Press 5.0 mmHg PV Peak Velocity 111.1 cm/s PV Peak Gradient 4.9 mmHg FINDINGS Left Ventricle Left ventricular ejection fraction is estimated at 55-60%. Mildly increased septal wall thickness. No obvious regional wall motion abnormalities. Right Ventricle Normal right ventricular global systolic function. Unable to estimate the right ventricular systolic pressure. Right Atrium Mild RA dilatation. Catheter/pacemaker wire in the right atrial cavity. Left Atrium Mildly increased left atrial volume. Mildly increased left atrial area. Mitral Valve Structurally normal mitral valve. No mitral stenosis, regurgitation or prolapse. Aortic Valve Trileaflet aortic valve. No aortic valve stenosis or regurgitation. Tricuspid Valve Structurally normal tricuspid valve. Trace tricuspid regurgitation. No tricuspid stenosis. Pulmonic Valve Pulmonic valve not well visualized. No pulmonic stenosis. No pulmonic regurgitation. Pericardium No pericardial effusion. Aorta Aortic annulus normal. Mildly dilated proximal ascending aorta (tube). CONCLUSIONS LVEF 55% No obvious regional wall motion abnormality Normal RV size and systolic function. PPM wire noticed in RV and RA Mild biatrial dilatation No significant valvular dysfunction Ascending aorta upper limit of normal measured at 4.1 cm Previewed by: Dr Mark Schwarz (Electronically Signed) Final Date: 30 October 2024 17:21
[2024-10-30] MEDS: TIOTROPIUM 2.5 MCG INHALER INHALATION SCH (19:46)
[2024-10-30] MEDS: SYMBICORT 160-4.5 MCG INHALER INHALATION SCH (19:48)
[2024-10-30] MEDS: ATORVASTATIN 40 MG TAB PO SCH (21:26)
[2024-10-31 04:36] VITALS: TEMP 98.2
[2024-10-31] MEDS: NON FORMULARY DRUG (Dulaglutide [Trulicity] 1.5 MG/0.5 ML Each) SQ SCH (07:44)
[2024-10-31 08:18] VITALS: PULSE 50; RESP 18
[2024-10-31] MEDS: NITROGLYCERIN SL TABS 0.4 MG TAB SUBLINGUAL PRN (09:12)
[2024-10-31 09:30] VITALS: BP 104/64
[2024-10-31 09:50] LABS: Chol/HDL Ratio 3.54 Ratio; LDL Cholesterol,Calculated 87.8 mg/dL (0.0-131.0)
--- NOTE | 2024-10-31 13:38 | P.CRDCN ---
History of Present Illness Consult date: 10/31/24 History of present illness: HPI: Known to Dr. Garibay. Resident of the [place]. Presented to the hospital because of substernal chest pressure and shortness of breath. She was transferred to [facility] because of extensive prior cardiovascular history. On today's evaluation, she is hemodynamically stable, with blood pressure and heart rate at goal. Her symptoms of chest pressure have resolved after breathing treatment. She denies any recurrent chest pressure sym ptoms. Pertinent Vitals: Not specifically mentioned. Pertinent cardiac Labs: Weighing Station Operator 1.3, K 4, Trop (time 4) negative, LDL 87, TG 103 Cardiac home meds: Coreg 12.5 mg BID, Hydralazine 50 mg TID, Amlodipine 10 mg daily, Lisinopril 40 mg daily, Aspirin, Lipitor 40 mg, Chlorthalidone 25 mg Pertinent cardiac testing: - CTA (10/2024): Showed mild increased interstitial markings in the pulmonary field, mild cardiomegaly. - Pulmonary Perfusion Scan (10/2024): Low probability for PE. - Doppler lower extremity (10/2024): No evidence of DVT. - EKG (10/2024): Sinus rhythm, atrial paced V sense rhythm. - Echo (10/2024): EF 60%, PPM wire in RA and RV, no regional wall motion abnormality, no significant valvular dysfunction, aortic root 4.1 cm. - Heart Catheterization (02/2024): Moderate to severe disease in RCA, negative IFR 0.93; mid LAD disease, IFR 0.91; LCX mild disease, no high-grade stenosis, LBADP 18. - LCXNST (02/2024): Abnormal due to substantial chest pressure symptoms. REVIEW OF SYSTEMS: 14 point review of system is negative except what is mentioned above in HPI. PHYSICAL EXAMINATION: Neck: Brisk carotid upstroke, no jugular venous distention. Lungs: Clear to auscultation. Heart: Regular rate and rhythm, S1-S2, no murmur or rub. Abdomen: Soft, nontender, positive bowel sounds. Extremities: No edema, intact distal pulses. Neuro: Alert, oriented, no focal deficits. Detailed neuro exam was not performed. ASSESSMENT: - # Atypical chest pain, ACS ruled out - # Stable angina with moderate disease in RCA and LAD, negative by IFR (02/2024) - # Essential hypertension, controlled - # Type 2 diabetes - # Morbid obesity - # Dyslipidemia PLAN: - # Continue current medications without any changes. Will add Imdur 15 mg daily - # Patient is unable to tolerate SGLT2 inhibitors due to recurrent UTIs - # Recommend outpatient follow-up - # Obtain NTproBNP, HbA1c, TSH levels Patient is cleared from cardiology. Recommend outpatient follow-up Past Medical History Past Medical History: Asthma, Coronary Artery Disease (CAD), Chest Pain / Angina, COPD, Diabetes Mellitus, Fibromyalgia, Hypertension, Myocardial Infarction (MD), Sleep Apnea/CPAP/BIPAP Additional Past Medical History / Comment(s): MS, neuropathy, arthritis in back, knees, ankles, feet. VERTIGO. fibromyalgia, sleep apnea with cpap use, abd aneurysm Last Myocardial Infarction Date:: 2004 History of Any Multi-Drug Resistant Organisms: None Reported Past Surgical History: Appendectomy, Cholecystectomy, Hysterectomy, Pacemaker, Tonsillectomy Additional Past Surgical History / Comment(s): Bladder SUSPENSION. LEFT carpal tunnel. Cyst removed from left middle finger Past Anesthesia/Blood Transfusion Reactions: Previous Problems w/ Anesthesia, Motion Sickness Additional Past Anesthesia/Blood Transfusion Reaction / Comment(s): HAS BEEN COMBATIVE POST GENERAL ANESTHESIA Type of Cardiac Device: Permanent Pacemaker Device Placement Date:: 2017 Past Psychological History: Depression Smoking Status: Current every day smoker Past Alcohol Use History: Occasional Additional Past Alcohol Use History / Comment(s): SMOKED FOR: 50 yrs down to 11cigs per day from3 PPD: Past Drug Use History: Marijuana - Past Family History Mother Family Medical History: Diabetes Mellitus Additional Family Medical History / Comment(s): heart problems Father Family Medical History: Diabetes Mellitus Additional Family Medical History / Comment(s): heart problems Medications and Allergies Home Medications Medication Instructions Recorded Confirmed Type Albuterol Inhaler [Ventolin Hfa 1 - 2 puff INHALATION RT-Q6H PRN 03/24/17 10/30/24 History Inhaler] Furosemide [Lasix] 40 mg PO DAILY 10/31/22 10/30/24 History lisinopriL 40 mg PO DAILY 10/31/22 10/30/24 History DULoxetine HCL [Cymbalta] 60 mg PO DAILY 03/20/24 10/30/24 History Fluticasone/Umeclidin/Vilanter 1 puff INHALATION RT-DAILY 03/20/24 10/30/24 History [Trelegy Ellipta 100-62.5-25] Gabapentin [Neurontin] 400 mg PO TID 03/20/24 10/30/24 History carvediloL [Coreg] 12.5 mg PO BID 03/20/24 10/30/24 History Atorvastatin [Lipitor] 40 mg PO HS #30 tab 03/24/24 10/30/24 Rx Acetaminophen Tab [Tylenol] 650 mg PO Q4H PRN 10/30/24 10/30/24 History Baclofen 5 mg PO BID 10/30/24 10/30/24 History Chlorthalidone 25 mg PO DAILY 10/30/24 10/30/24 History Citalopram Hydrobromide [CeleXA] 20 mg PO DAILY 10/30/24 10/30/24 History Dulaglutide [Trulicity] 1.5 mg SQ SA 10/30/24 10/30/24 History Famotidine [Pepcid] 20 mg PO BID 10/30/24 10/30/24 History Nicotine 21Mg/24Hr Patch [Habitrol] 1 patch TRANSDERM DAILY 10/30/24 10/30/24 History amLODIPine [Norvasc] 10 mg PO DAILY 10/30/24 10/30/24 History buPROPion SR [Wellbutrin SR] 150 mg PO BID 10/30/24 10/30/24 History hydrALAZINE HCL [Apresoline] 50 mg PO TID 10/30/24 10/30/24 History Allergies Allergy/AdvReac Type Severity Reaction Status Date / Time codeine Allergy Dyspnea Verified 10/30/24 09:31 livier Allergy Anaphylaxis Verified 10/30/24 09:31 Melon Allergy Anaphylaxis Verified 10/30/24 09:31 morphine Allergy Rash/Hives Verified 10/30/24 09:31 Penicillins Allergy Dyspnea Verified 10/30/24 09:31 alprazolam [From Xanax] AdvReac See comment Verified 10/30/24 09:31 Physical Exam Vitals: Vital Signs Temp Pulse Pulse Resp BP BP Pulse Ox 10/31/24 09:29 50 L 104/64 98 10/31/24 09:07 97 10/31/24 07:00 50 L 18 120/69 99 10/31/24 02:00 98.2 F 71 17 113/73 95 10/30/24 21:32 97.5 F L 54 L 16 129/65 95 10/30/24 20:41 18 10/30/24 16:27 50 L 18 119/66 99 FiO2 10/31/24 09:29 10/31/24 09:07 21 10/31/24 07:00 10/31/24 02:00 10/30/24 21:32 10/30/24 20:41 10/30/24 16:27 Intake and Output 10/30/24 10/31/24 10/31/24 22:59 06:59 14:59 Output Total 0 Balance 0 Output: Urine 0 Other: Voiding Method Diaper Diaper Incontinent External Catheter External Catheter # Voids 1 Weight 154.675 kg Results Lipids 10/30/24 Range/Units 03:55 Triglycerides 103.00 (0.00-149.00) mg/dL Cholesterol 151.00 (0.00-200.00) mg/dL HDL Cholesterol 42.60 (40.00-60.00) mg/dL Cholesterol/HDL Ratio 3.54 Ratio Current Medications Generic Name Dose Route Start Last Admin Trade Name Freq PRN Reason Stop Dose Admin Acetaminophen 650 mg 10/30/24 10:13 10/31/24 07:46 Acetaminophen Tab 325 Mg Tab PO 650 mg Q4H PRN Administration Pain Albuterol Sulfate 2.5 mg 10/30/24 10:13 Albuterol Nebulized 2.5 Mg/3 Ml INHALATION RT-Q6H PRN Shortness Of Breath Amlodipine Besylate 10 mg 10/30/24 10:15 10/30/24 12:05 Amlodipine 10 Mg Tab PO 10 mg DAILY KENDAL Administration Aspirin 325 mg 10/31/24 09:00 Aspirin 325 Mg Tab PO DAILY KENDAL Atorvastatin Calcium 40 mg 10/30/24 21:00 10/30/24 21:26 Atorvastatin 40 Mg Tab PO 40 mg HS KENDAL Administration Baclofen 5 mg 10/30/24 10:15 10/30/24 21:26 Baclofen 10 Mg Tab PO 5 mg BID KENDAL Administration Budesonide/Formoterol Fumarate 2 puff 10/30/24 20:00 10/31/24 09:07 Symbicort 160-4.5 Mcg Inhaler INHALATION 2 puff RT-BID KENDAL Administration Bupropion HCl 150 mg 10/30/24 10:15 10/30/24 21:30 Bupropion Sr 150 Mg Tablet.Er PO Not Given BID KENDAL Chlorthalidone 25 mg 10/30/24 10:15 10/30/24 12:06 Chlorthalidone 25 Mg Tab PO 25 mg DAILY KENDAL Administration Citalopram Hydrobromide 20 mg 10/30/24 10:15 10/30/24 12:04 Citalopram Hydrobromide 20 Mg Tab PO 20 mg DAILY KENDAL Administration Duloxetine HCl 60 mg 10/30/24 10:15 10/30/24 12:05 Duloxetine Hcl 60 Mg Capsule.Dr PO 60 mg DAILY KENDAL Administration Enoxaparin Sodium 40 mg 10/30/24 10:30 10/30/24 12:04 Enoxaparin 40 Mg/0.4 Ml Syringe SQ 40 mg DAILY KENDAL Administration Famotidine 20 mg 10/30/24 10:15 10/30/24 16:34 Famotidine 20 Mg Tab PO 20 mg BID@0900,1600 KENDAL Administration Furosemide 40 mg 10/30/24 10:15 10/30/24 12:04 Furosemide 40 Mg Tab PO 40 mg DAILY KENDAL Administration Gabapentin 400 mg 10/30/24 10:15 10/30/24 21:27 Gabapentin 400 Mg Cap PO 400 mg TID KENDAL Administration Lisinopril 40 mg 10/30/24 10:15 10/30/24 12:05 Lisinopril 20 Mg Tab PO 40 mg DAILY KENDAL Administration Nicotine 1 patch 10/30/24 10:15 10/30/24 12:17 Nicotine 21mg/24hr Patch TRANSDERM Not Given DAILY KENDAL Nitroglycerin 0.4 mg 10/30/24 09:06 10/31/24 09:12 Nitroglycerin Sl Tabs 0.4 Mg Tab SUBLINGUAL 0.4 mg Q5M PRN Administration Chest Pain Nitroglycerin 1 inch 10/30/24 12:00 10/31/24 06:00 Nitroglycerin Oint 1 Inch/Gm Packet TOPICAL Not Given Q6HR [facility] Non-Formulary Medication 1.5 mg 10/31/24 09:00 10/31/24 07:44 Dulaglutide [Trulicity] SQ Not Given SA KENDAL Tiotropium [place] 2 puff 10/30/24 08:00 10/31/24 09:07 Tiotropium 2.5 Mcg Inhaler INHALATION 2 puff RT-DAILY KENDAL Administration Intake and Output 10/30/24 10/31/24 10/31/24 22:59 06:59 14:59 Output Total 0 Balance 0 Output: Urine 0 Other: Voiding Method Diaper Diaper Incontinent External Catheter External Catheter # Voids 1 Weight 154.675 kg
[2024-10-31] MEDS: ASPIRIN 325 MG TAB PO SCH (13:42)
[2024-10-31 14:48] LABS: African American GFR (CKD) 70 (>60 ml/min/1.73 sqM); Anion Gap 10 mmol/L; Blood Urea Nitrogen 40 mg/dL (7-17); Calcium 9.5 mg/dL (8.4-10.2); Carbon Dioxide 29 mmol/L (22-30); Chloride 99 mmol/L (98-107); Glucose 190 mg/dL (74-99); Magnesium 1.9 mg/dL (1.6-2.3); Non-African American GFR(CKD) 61 (>60 ml/min/1.73 sqM); Sodium 138 mmol/L (137-145)
[2024-10-31 14:58] LABS: NT-Pro-B-Type Natriuretic Pept 105 pg/mL
[2024-10-31] MEDS: ISOSORBIDE MONONITRATE ER 15 MG TAB PO SCH (15:38)
[2024-10-31 16:30] LABS: T4, Free (Free Thyroxine) 1.67 ng/dL (0.78-2.19)
--- NOTE | 2024-10-31 19:50 | P.DS ---
Providers Date of admission: 10/30/24 09:06 Expected date of discharge: 10/31/24 Attending physician: Ravindra Connors Consults: 10/30/24 09:06 Consult Physician Urgent Consulting Provider: Jitendra Serrano Consult Reason/Comments: cp ? chf Do you want consulting provider notified?: Yes Primary care physician: Lane Sepulveda [facility] Hospital Course: Chief Complaint: Chest wall pain This is a 59-year-old patient, follows with Dr. Lane Sepulveda. Chronic medical conditions include COPD, diabetes, fibromyalgia, essential hypertension, obstructive sleep apnea does not use CPAP. Denies CAD. Multiple sclerosis. Neuropathy arthritis. Pacemaker. Patient presents with chest pain. Somewhat more on the right side lateral to the sternal bone and along the lower end of right rib cage. Present. But constant. Worse with body movement. Patient did take a fall about 2 weeks ago face down. But the pain only started 2 days ago. Patient initially presented to [facility] where she was transferred here. Patient does use a walker. And is a smoker. October 31: Recliner. Comfortable. Seen by cardiology. Cleared for discharge. Pain is felt to be musculoskeletal. Because of bradycardia and relative hypotension. Coreg and hydralazine discontinued. Patient's placed on Imdur. Patient to follow-up with the network strategist. Social history: Lives alone. Does use a walker. Smoking a pack a day for about 50 years Physical examination: VITAL SIGNS: 98.2, 50, 16, 104 x 64, 98% room air GENERAL: [BMI 47.6, comfortable in a recliner. EYES: Pupils equal. Conjunctiva tato l. HEENT: External appearance of nose and ears normal, oral cavity grossly normal. NECK: JVD unable to assess masses not palpable. HEART: Heart sounds muffled; no edema. LUNGS: Respiratory rate increased, diminished breath sound. ABDOMEN: Soft, nontender, liver spleen not palpable, no masses palpable. PSYCH: Alert and oriented x3; mood and affect tato l. MUSCULOSKELETAL:No Clubbing/cyanosis;muscles-grossly intact. Reproducible chest pain the right costochondral junction in the mid zone. And some on the lower end of rib cage Darrel medially INVESTIGATIONS, reviewed in the clinical context: October 31: Potassium 4 creatinine 1.01 2D echo: EF 55 to 60%. Pacemaker wire in the right atrial and right ventricle. Troponin I x 3 less than 0.012 EKG tracing personally reviewed by me-atrial pacemaker Chest CTA: Not suboptimal lung Didox take for PE. Some cardiomegaly. Venous Doppler: Right and left foot negative for DVT VQ scan: No evidence of PE Assessment plan: - Anterior chest wall pain. Note that patient had a fall about 2 weeks ago. About 2 days ago started noticing pain on the right side. No consult. Worse with body movement. Tender at the right costochondral junction and in the medial part of the right sided rib cage. Costochondritis Seen and cleared by cardiology Dr. Schwarz and discharged - Depression Celexa 20 mg a day. Cymbalta 60 mg a day. Wellbutrin - Hyperlipidemia Lipitor 40 mg nightly - Chronic nicotine dependence cigarette smoker Nicotine patch - Peripheral neuropathy Neurontin - Morbid obesity BMI 47.6 Weight loss measures - Primary osteoarthritis Tylenol as needed - Permanent pacemaker - Essential hypertension Lisinopril 40 mg a day, amlodipine 10 mg a day, Coreg and hydralazine discontinued because blood pressure running the lower side. - COPD in a current smoker Trelegy Ellipta inhaler -Full code Care was discussed with patient. Home medications resumed. Past Medical History Past Medical History: Asthma, Coronary Artery Disease (CAD), Chest Pain / Angina, COPD, Diabetes Mellitus, Fibromyalgia, Hypertension, Myocardial Infarction (MA), Sleep Apnea/CPAP/BIPAP Additional Past Medical History / Comment(s): MS, neuropathy, arthritis in back, knees, ankles, feet. VERTIGO. fibromyalgia, sleep apnea with cpap use, abd ane urysm Last Myocardial Infarction Date:: 2004 History of Any Multi-Drug Resistant Organisms: None Reported Past Surgical History: Appendectomy, Cholecystectomy, Hysterectomy, Pacemaker, Tonsillectomy Additional Past Surgical History / Comment(s): Bladder SUSPENSION. LEFT carpal tunnel. Cyst removed from left middle finger Past Anesthesia/Blood Transfusion Reactions: Previous Problems w/ Anesthesia, Motion Sickness Additional Past Anesthesia/Blood Transfusion Reaction / Comment(s): HAS BEEN COMBATIVE POST GENERAL ANESTHESIA Type of Cardiac Device: Permanent Pacemaker Device Placement Date:: 2017 Past Psychological History: Depression Smoking Status: Current every day smoker Past Alcohol Use History: Occasional Past Drug Use History: Marijuana Plan - Discharge Summary Discharge Rx Participant: No New Discharge Prescriptions: New Isosorbide Mononitrate ER [Imdur] 15 mg PO DAILY #30 tab Continue Albuterol Inhaler [Ventolin Hfa Inhaler] 1 - 2 puff INHALATION RT-Q6H PRN PRN Reason: Shortness Of Breath DULoxetine HCL [Cymbalta] 60 mg PO DAILY Atorvastatin [Lipitor] 40 mg PO HS #30 tab Acetaminophen Tab [Tylenol] 650 mg PO Q4H PRN PRN Reason: Pain Famotidine [Pepcid] 20 mg PO BID amLODIPine [Norvasc] 10 mg PO DAILY Citalopram Hydrobromide [CeleXA] 20 mg PO DAILY lisinopriL 40 mg PO DAILY Furosemide [Lasix] 40 mg PO DAILY Gabapentin [Neurontin] 400 mg PO TID Fluticasone/Umeclidin/Vilanter [Trelegy Ellipta 100-62.5-25] 1 puff INHALATION RT-DAILY buPROPion SR [Wellbutrin SR] 150 mg PO BID Dulaglutide [Trulicity] 1.5 mg SQ SA Baclofen 5 mg PO BID Nicotine 21Mg/24Hr Patch [Habitrol] 1 patch TRANSDERM DAILY Chlorthalidone 25 mg PO DAILY Discontinued carvediloL [Coreg] 12.5 mg PO BID hydrALAZINE HCL [Apresoline] 50 mg PO TID Discharge Medication List Albuterol Inhaler [Ventolin Hfa Inhaler] 1 - 2 puff INHALATION RT-Q6H PRN 03/24/17 [History] Furosemide [Lasix] 40 mg PO DAILY 10/31/22 [History] lisinopriL 40 mg PO DAILY 10/31/22 [History] DULoxetine HCL [Cymbalta] 60 mg PO DAILY 03/20/24 [History] Fluticasone/Umeclidin/Vilanter [Trelegy Ellipta 100-62.5-25] 1 puff INHALATION RT-DAILY 03/20/24 [History] Gabapentin [Neurontin] 400 mg PO TID 03/20/24 [History] Atorvastatin [Lipitor] 40 mg PO HS #30 tab 03/24/24 [Rx] Acetaminophen Tab [Tylenol] 650 mg PO Q4H PRN 10/30/24 [History] Baclofen 5 mg PO BID 10/30/24 [History] Chlorthalidone 25 mg PO DAILY 10/30/24 [History] Citalopram Hydrobromide [CeleXA] 20 mg PO DAILY 10/30/24 [History] Dulaglutide [Trulicity] 1.5 mg SQ SA 10/30/24 [History] Famotidine [Pepcid] 20 mg PO BID 10/30/24 [History] Nicotine 21Mg/24Hr Patch [Habitrol] 1 patch TRANSDERM DAILY 10/30/24 [History] amLODIPine [Norvasc] 10 mg PO DAILY 10/30/24 [History] buPROPion SR [Wellbutrin SR] 150 mg PO BID 10/30/24 [History] Isosorbide Mononitrate ER [Imdur] 15 mg PO DAILY #30 tab 10/31/24 [Rx] Follow up Appointment(s)/Referral(s): network strategistdr [Other] - [address] Sep[address]a MD [Primary Care Provider] - 1-2 days Patient Instructions/Handouts: Chest Pain (DC) Discharge Disposition: HOME SELF-CARE
[2024-11-01 00:27] LABS: Chol/HDL Ratio 3.17 Ratio
[2024-11-01 01:15] LABS: LDL Cholesterol,Calculated 65.9 mg/dL (0.0-131.0)
== END 2024-10-31 15:55 | disposition home or self-care (01) ==
LOC: EC 02:36 → 6NMEDSUR 09:06
PROVIDERS: ADMIT Hospitalist; ATTEND Hospitalist
DX: R07.89 Other chest pain (principal); M94.0 Chondrocostal junction syndrome [Tietze]; I25.118 Atherosclerotic heart disease of native coronary artery with other forms of angina pectoris; E11.40 Type 2 diabetes mellitus with diabetic neuropathy, unspecified; G47.33 Obstructive sleep apnea (adult) (pediatric); I11.0 Hypertensive heart disease with heart failure; I50.9 Heart failure, unspecified; M79.7 Fibromyalgia; G35 Multiple sclerosis; E78.5 Hyperlipidemia, unspecified; M19.91 Primary osteoarthritis, unspecified site; J44.9 Chronic obstructive pulmonary disease, unspecified; F32.A Depression, unspecified; R07.2 Precordial pain; I95.9 Hypotension, unspecified; R00.1 Bradycardia, unspecified; E66.01 Morbid (severe) obesity due to excess calories; Z68.42 Body mass index [BMI] 45.0-49.9, adult; F17.210 Nicotine dependence, cigarettes, uncomplicated; Z79.51 Long term (current) use of inhaled steroids; Z79.82 Long term (current) use of aspirin; Z79.899 Other long term (current) drug therapy; Z88.0 Allergy status to penicillin; Z88.5 Allergy status to narcotic agent; Z88.8 Allergy status to other drugs, medicaments and biological substances; Z91.018 Allergy to other foods; Z95.0 Presence of cardiac pacemaker; Z87.440 Personal history of urinary (tract) infections; Z91.81 History of falling
CPT/HCPCS: 96372 ×2; 96374; 99285; 36415; 94640 ×3; 94760; 93005; 93306; 84439; 83880; 80061 ×2; 80048; 84443; 83735; 84484; 83036; 93970; 71275; 78582; G0378 ×2; A9540; A9567; S0106 ×2; J1650 ×2; Q9967; J1938